=== PATIENT | female | born 1955 | race Caucasian/White ===

== ENCOUNTER → 2017-08-19 08:56 | Outpatient (CLI) | payer MEDICARE, SELFPAY ==
--- NOTE | 2017-08-19 09:00 | RAD_ITS ---
STUDY: X-RAY - LUMBOSACRAL SPINE REASON FOR EXAM: Female, 61 years old. Lower back pain. History of slipped disc. TECHNIQUE: 7 view(s) of the lumbosacral spine were obtained. COMPARISON: MRI of lumbar spine, December 14, 2016. FINDINGS: Normal lumbar lordosis. There is no substantial scoliosis. There is grade 1 anterolisthesis of L4 on L5. This increases with flexion and is stable with extension. The alignment is otherwise preserved. There is diffuse demineralization with multi-level endplate spondylosis. There is multi-level degenerative disc disease with multi-level disc space narrowing. No spine fracture Normal bilateral sacral ala, sacroiliac joints, and visualized sacrum. There is atherosclerotic calcification of the abdominal aorta without a demonstrated aneurysm. There are surgical clips in right upper quadrant suggesting prior cholecystectomy. RAD/L/S Spine Comp/w Bending Views IMPRESSION: Degenerative changes lumbar spine as described above. Electronically Signed: Lei Saavedra DO at 12:45 EDT Tel [phone], Service support ,
--- NOTE | 2017-08-19 09:57 | RAD_ITS ---
STUDY: XR SPINE ENTIRE THORACIC T LUMBAR (W SKULL, CERVICAL AND SACRAL SPINE IF PERFORMED) REASON FOR EXAM: Female, 61 years old. Back pain causing the patient to walk unevenly and hunch over. TECHNIQUE: Radiological exam, spine, entire thoracic and lumbar, including skull, cervical and sacral spine if performed (eg, scoliosis evaluation); 2 or 3 views. COMPARISON: Cervical spine, March 29, 2015. Lumbar spine, August 19, 2017. FINDINGS: There is a 9.5 degree dextroscoliosis of the thoracic spine with the apex of the convexity at the T8 level. There is a 12.8 degree levoscoliosis scoliosis of the lumbar spine with the apex of the convexity at the L4 level. Normal kyphosis of the thoracic spine. There is demineralization of the thoracic spine with endplate spondylosis. There is multilevel disc space narrowing of the thoracic spine. Normal lordosis of the lumbar spine. There is demineralization of the lumbar spine with endplate spondylosis. There is multilevel disc space narrowing of the lumbar spine. The soft tissue structures are unremarkable. RAD/Scoliosis 2 or 3 views IMPRESSION: Scoliosis of the thoracolumbar spine as described above. Electronically Signed: Lei Saavedra DO at 15:39 EDT Tel [phone], Service support ,
== END ==
PROVIDERS: Family Provider Family Medicine; PCP Family Medicine; Visit Provider Orthopaedic Surgery
DX: M54.5 Low back pain (principal); M54.16 Radiculopathy, lumbar region
CPT/HCPCS: 72082; 72114

== ENCOUNTER → 2017-08-27 16:15 | Outpatient (CLI) | payer MEDICARE, SELFPAY ==
[2017-08-27 17:41] LABS: Calcium,Total 9.2 mg/dL (8.5-10.1)
[2017-08-27 17:57] LABS: Vitamin D,25 Hydroxy 44.7 ng/mL (29.95-100.01)
== END ==
PROVIDERS: Family Provider Family Medicine; PCP Family Medicine; Visit Provider Orthopaedic Surgery
DX: M54.12 Radiculopathy, cervical region (principal); M54.16 Radiculopathy, lumbar region; M85.80 Other specified disorders of bone density and structure, unspecified site
CPT/HCPCS: 36415; 82306; 82310

== ENCOUNTER → 2017-09-18 15:43 | Outpatient (CLI) | payer MEDICARE, SELFPAY ==
--- NOTE | 2017-09-18 15:51 | BD_ITS ---
STUDY: DUAL ENERGY X-RAY ABSORPTIOMETRY / DXA REASON FOR EXAM: Female, 61 years old. Bone mineral density screening in a postmenopausal patient. TECHNIQUE: Bone Mineral Density (BMD) measurements of lumbar spine and bilateral hips were obtained. COMPARISON: None. FINDINGS: Lumbar Spine (L1-L4): g/cm2 (0.938) / T-score (-1.9) / Z-score (-0.8) Findings are suggestive of osteopenia with a moderate fracture risk. Left Femur Total: g/cm2 (0.891) / T-score (-0.9) / Z-score (0.0) Left Femoral Neck: g/cm2 (0.934) / T-score (-0.8) / Z-score (0.5) Right Femur Total: g/cm2 (0.851) / T-score (-1.2) / Z-score (-0.3) Right Femoral Neck: g/cm2 (0.957) / T-score (-0.6) / Z-score (0.6) BD/Dexa Bone Density Study IMPRESSION: The patient is considered osteopenic as outlined below according to World [place] Organization (WHO) criteria with a moderate fracture risk. Reference Information: The T-score is the number of standard deviations above or below the standard which is normal for young adults at their peak bone mineral density. The World Health Organization (WHO) interprets the T-scores as follows: Above -1 Normal bone density Between -1 and -2.5 Osteopenia Equal to / or below -2.5 Osteoporosis As a practical clinical guideline, osteopenia may be graded as follows: Mild -1 through -1.5 Moderate -1.6 through -2.0 Severe -2.1 through -2.4 The Z-score is the number of standard deviations above or below age-matched controls. A Z-score of less than -1.5 would be considered abnormal. References: 1. NIH Osteoporosis and Related Bone Diseases http://www.osteo.org 2. International Society for Clinical Densitometry http://www.iscd.org 3. National Osteoporosis Foundation http://www.nof.org Electronically Signed: Virginia Palomino MD at 9:16 EDT , Service support ,
== END ==
PROVIDERS: Family Provider Family Medicine; PCP Family Medicine; Visit Provider Orthopaedic Surgery
DX: M85.80 Other specified disorders of bone density and structure, unspecified site (principal); M54.16 Radiculopathy, lumbar region; M54.12 Radiculopathy, cervical region
CPT/HCPCS: 77080

== ENCOUNTER → 2017-09-30 16:17 | Outpatient (CLI) | payer MEDICARE, SELFPAY ==
--- NOTE | 2017-09-30 16:00 | MRI_ITS ---
STUDY: MRI CERVICAL SPINE WITHOUT CONTRAST REASON FOR EXAM: Female, 61 years old. CHRONIC NECK PAIN, ANY PHYSICAL ACTIVITY IS PAINFUL TECHNIQUE: Standardized fat and water weighted pulse sequences were obtained in the sagittal and axial planes. COMPARISON: X-ray March 29, 2015 FINDINGS: Normal foramen magnum and brainstem-cervical cord junction. Normal craniovertebral junction. Normal anterior atlantoaxial articulation. Normal odontoid process. There is straightening of the normal cervical lordosis. There is no spondylolisthesis. There is multilevel disc desiccation. There is loss of disc height at C5-6 and C6-7. Vertebral body heights are maintained. Bone marrow signal is normal. C2/3: There is mild right uncovertebral hyperostosis. No central canal or neuroforaminal stenosis. C3/4: There is mild right uncovertebral hyperostosis and a mild diffuse bulge. There is mild central canal stenosis and moderate right and [id number] left neuroforaminal stenosis. C4/5: No disc bulge or herniation or central canal or neuroforaminal stenosis. C5/6: There is moderate left and mild right uncovertebral hyperostosis and a diffuse bulge. There is moderate central canal stenosis and severe right and moderate left neuroforaminal stenosis. C6/7: There is mild bilateral uncovertebral hyperostosis and a diffuse bulge. There is mild central canal stenosis and mild right worse than left neuroforaminal stenosis. C7/T1: Normal. Normal cervical cord. Normal visualized soft tissue structures. MRI/Spine Cervical (Routine) IMPRESSION: Multilevel degenerative changes, as described above. C3/4: There is mild right uncovertebral hyperostosis and a mild diffuse bulge. There is mild central canal stenosis and moderate right and [id number] left neuroforaminal stenosis. C5/6: There is moderate left and mild right uncovertebral hyperostosis and a diffuse bulge. There is moderate central canal stenosis and severe right and moderate left neuroforaminal stenosis. C6/7: There is mild bilateral uncovertebral hyperostosis and a diffuse bulge. There is mild central canal stenosis and mild right worse than left neuroforaminal stenosis. Electronically Signed: Zuleyka Horne MD at 12:35 EDT , Service support ,
--- NOTE | 2017-09-30 16:00 | MRI_ITS ---
STUDY: MRI LUMBAR SPINE WITH AND WITHOUT CONTRAST REASON FOR EXAM: Female, 61 years old. TECHNIQUE: Standardized fat and water weighted pulse sequences were obtained in the sagittal and axial planes. 7 ml of Gadavist contrast material was administered for the contrast portion of the examination. COMPARISON: None FINDINGS: T12-L1: Normal endplates. Normal disc height, hydration and morphology. Normal bilateral facet joints. Normal central canal and bilateral lateral recesses. Normal bilateral intervertebral neural foramina. Normal lumbar lordosis. There is no substantial scoliosis. Normal conus medullaris that terminates at the L1 level. L1-2: Normal endplates. Normal disc height, hydration and morphology. Normal bilateral facet joints. Normal central canal and bilateral lateral recesses. Normal bilateral intervertebral neural foramina. L2-3: Normal endplates. Normal disc height, hydration and morphology. Normal bilateral facet joints. Normal central canal and bilateral lateral recesses. Normal bilateral intervertebral neural foramina. L3-4: Endplate spondylosis. Decreased disc height and small circumferential disc bulge. Degenerative changes of the bilateral facet joints. Mild narrowing of the central canal and bilateral intervertebral neural foramina. L4-5: Endplate spondylosis. Decreased disc height and moderate circumferential disc bulge. 5 mm spondylolisthesis Degenerative changes of the bilateral facet joints. Severe narrowing of the central canal and moderate narrowing of the bilateral intervertebral neural foramina. L5-S1: Endplate spondylosis. Decreased disc height and moderate circumferential disc bulge. Degenerative changes of the bilateral facet joints. Moderate narrowing of the central canal and bilateral intervertebral neural foramina. There is right laminectomy. Normal visualized sacral ala. Normal visualized paraspinous soft tissue structures. MRI/Spine Lumbar W/WO Contrast IMPRESSION: Multilevel degenerative changes, as described above. Electronically Signed: Argentina Lucas MD at 7:39 EDT Tel , Service support ,
== END ==
PROVIDERS: Family Provider Family Medicine; PCP Family Medicine; Visit Provider Orthopaedic Surgery
DX: M85.80 Other specified disorders of bone density and structure, unspecified site (principal); M54.12 Radiculopathy, cervical region; M54.16 Radiculopathy, lumbar region
CPT/HCPCS: 72141; 72158; A9585

== ENCOUNTER 2017-11-05 15:30 | Outpatient (RCR) | payer MEDICARE, SELFPAY ==
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
--- NOTE | 2018-02-19 13:15 | HP.PTDCNRP_ITS ---
HP - Discharge Summary (1) - Patient Information RADHA VALLE was seen in my office for initial evaluation on 10/07/17. The following Plan of Care was established for this patient: Initial Frequency: 2x /Week Initial Duration: 2 Months - Anticipated Interventions Patient/Client Instruction: Educate patient on: Condition, Plan of Care, Risk Factors, Benefits of Fitness Program For the Purpose of:: To improve self management Therapeutic Exercise to Include: Strength training, Body mechanics, Postural training, Flexibilty training, Gait and locomotor training, In an aquatic set ting, Active ROM, Dynamic Lumbar Stabilization For the Purpose of:: To decrease pain, To improve muscle performance and motor function, To improve ability to perform ADL's, To increase tolerance to activity/condition/position, To improve ability of physical actions for home/community/work/leisure, To improve gait and locomotor functions This patient was last seen in our office 11/05/17. Pertinent comments regarding their Physical therapy will appear below: This patient has not returned to Physical Therapy and is appropriate to return to MD for further follow-up as needed. At this point I will be discontinuing this patient from physical therapy. I would be happy to see this patient again in the future if found appropriate by the physician. Thank you! Yue Marcial
== END 2017-11-05 19:00 | disposition home or self-care (01) ==
LOC: PT 15:30
PROVIDERS: Family Provider Family Medicine; PCP Family Medicine; Visit Provider Family Medicine
DX: M43.16 Spondylolisthesis, lumbar region (principal)
CPT/HCPCS: 97113; 97162; 97164

== ENCOUNTER → 2018-02-05 13:22 | Outpatient (CLI) | payer MEDICARE, SELFPAY ==
[2018-02-05 15:40] LABS: Absolute Lymphocyte Count 2.59 X10^3/ul (0.83-4.51); Basophil# 0.05 X10^3/uL; Basophil% 0.4 % (0-1); Eosinophil# 0.39 X10^3/uL; Eosinophils% 3.3 % (0-5); Hematocrit 41.7 % (37-47); Hemoglobin 13.3 g/dl (12.0-15.0); Lymphocyte # 2.59 X10^3/ul (4.0); Lymphocyte % 21.9 % (19-41); Mean Corp Hgb Conc 31.9 g/gl (32-36); Mean Corpuscular Hgb 28.7 pg (27.0-32.0); Mean Corpuscular Volume 90.1 fL (81-99); Mean Platelet Vol. 10.8 fl (6.2-12.0); Monocyte# 0.73 X10^3/uL; Monocyte% 6.2 % (0-10); Neutrophil # 8.04 X10^3/uL (2.7-7.7); Platelet Count 285 K/mm3 (150-450); RBC Distribution Width CV 13.5 % (11.6-14.6); Red Blood Count 4.63 M/mm3 (4.2-5.4); White Blood Count 11.8 K/mm3 (4.4-11.0)
[2018-02-05 15:43] LABS: POSITIVE COUNT NO; POSITIVE DIFFERENTIAL NO; POSITIVE MORPHOLOGY NO
[2018-02-05 16:01] LABS: AST(SGOT) 28 U/L (15-37); Alanine Aminotransfer ALT/SGPT 48 U/L (13-56); Albumin, Serum 3.4 g/dL (3.2-5.0); Alkaline Phosphatase 118 U/L (45-117); Anion Gap 6 (5-15); BUN 13 mg/dL (7-18); BUN/Creat Ratio 16.3 RATIO (10-20); Calcium,Total 8.7 mg/dL (8.5-10.1); Chloride 105 mmol/L (98-107); Cholesterol 164 mg/dL (200); EST Glomerular Filtration Rate 78 mL/min (>60); Est Glom Filt Rate - Afr Amer 94 mL/min (>60); Globulin 3.5 g/dL (2.2-4.2); Glucose 126 mg/dL (74-106); High Density Lipoprotein 41 mg/dL; Potassium 3.5 mmol/L (3.5-5.1); Protein, Total 6.9 g/dL (6.4-8.2); Sodium Level 143 mmol/L (136-145); Triglycerides 69 mg/dL; Very Low Density Lipoprotein 14 mg/dL (5-40)
[2018-02-05 16:02] LABS: Microalbumin,Random Urine 9.3 mg/L (NO RANGE EST.); T4 Free Direct 0.86 ng/dL (0.76-1.46); Thyroid Stim Hormone (TSH) 6.52 uIU/mL (0.358-3.74)
[2018-02-05 16:10] LABS: Hemoglobin A1c 6.2 % (4.2-6.3)
== END ==
PROVIDERS: Family Provider Family Medicine; PCP Family Medicine; Visit Provider Family Medicine
DX: E11.9 Type 2 diabetes mellitus without complications (principal); E78.5 Hyperlipidemia, unspecified; E03.9 Hypothyroidism, unspecified; R05 Cough; Z51.81 Encounter for therapeutic drug level monitoring
CPT/HCPCS: 36415; 80053; 80061; 82043; 82570; 83036; 84439; 84443; 85025; 87070; 87077; 87205

== ENCOUNTER 2018-04-06 22:42 | Emergency (ER) | payer MEDICARE, SELFPAY ==
[2018-04-06 22:43] VITALS: RESP 16
[2018-04-06 22:44] VITALS: BP 136/66; PULSE 84; RESP 16; TEMP 36.8; O2SAT 97; BMI 31.6
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
--- NOTE | 2018-04-06 23:17 | ED.DEP ---
ED Disposition - Plan for ED Patient: Chief Complaint: Burn Instructions: ED Burn Wound Check No Infec Referrals: Jimmie Aguirre DO [Primary Care Provider] - Clinic,Wound [None] -
== END 2018-04-06 23:53 | disposition home or self-care (01) ==
LOC: ED 23:15
PROVIDERS: Emergency Provider Emergency Medicine; Family Provider Family Medicine; PCP Family Medicine
DX: T24.012A Burn of unspecified degree of left thigh, initial encounter (principal); T24.011A Burn of unspecified degree of right thigh, initial encounter; T31.0 Burns involving less than 10% of body surface; Z72.0 Tobacco use; X16.XXXA Contact with hot heating appliances, radiators and pipes, initial encounter; Y93.84 Activity, sleeping; Y92.003 Bedroom of unspecified non-institutional (private) residence as the place of occurrence of the external cause; Y99.8 Other external cause status
CPT/HCPCS: 99282

== ENCOUNTER 2018-04-21 15:15 | Outpatient (RCR) | payer MEDICARE, SELFPAY ==
[2018-04-21 16:15] VITALS: BP 140/88; PULSE 88; RESP 18; TEMP 36.7; BMI 31.4
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
--- OUTSIDE RECORDS SUMMARY | 2018-06-17 08:16 | XMS RPT_ITS ---
:1955 Author Organization OHIP Support Name Relationship Address Phone D Unavailable Unavailable Unavailable MATYOUSIAN, BEATRIS Unavailable Unavailable + [place] [address] D Unavailable Unavailable Unavailable MATYOUSIAN, BEATRIS Unavailable Unavailable + [place] [address] D Unavailable Unavailable Unavailable MATYOUSIAN, BEATRIS Unavailable Unavailable + [place] [address] D Unavailable Unavailable Unavailable MATYOUSIAN, BEATRIS Unavailable Unavailable + [place] [address] D Unavailable Unavailable Unavailable MATYOUSIAN, BEATRIS Unavailable Unavailable + [place] [address] D Unavailable Unavailable Unavailable MATYOUSIAN, BEATRIS Unavailable Unavailable + [place] [address] IDRIS BAZAN Unavailable Unavailable + D Unavailable Unavailable Unavailable MATYOUSIAN, BEATRIS Unavailable Unavailable + [place] [address] D Unavailable Unavailable Unavailable MATYOUSIAN, BEATRIS Unavailable Unavailable + [place] [address] D Unavailable Unavailable Unavailable MATYOUSIAN, BEATRIS Unavailable Unavailable + [place] [address] D Unavailable Unavailable Unavailable MATYOUSIAN, BEATRIS Unavailable Unavailable + [place] [address] D Unavailable Unavailable Unavailable MATYOUSIAN, BEATRIS Unavailable Unavailable + [place] [address] IDRIS BAZAN Unavailable Unavailable + IDRIS BAZAN Unavailable Unavailable + D Unavailable Unavailable Unavailable HORTENSIAIDRIS Unavailable [address] + [place] [address] D Unavailable Unavailable Unavailable IDRIS BAZAN Unavailable [address] + [place] [address] TAHIR RIDDLE Unavailable Unavailable + TAHIR RIDDLE Unavailable Unavailable + D Unavailable Unavailable Unavailable IDRIS BAZAN Unavailable [address] [place] [address] Care Team Providers Name Role Phone YESI COWAN Referring Unavailable Timothy, Jimmie Primary Care Unavailable YESI COWAN Attending Unavailable Bob, Gerda Attending Unavailable Timothy, Jimmie Referring Unavailable Timothy, Jimmie Primary Care Unavailable Bob, Gerda Attending Unavailable Timothy, Jimmie Primary Care Unavailable Bob, Gerda Attending Unavailable Bob, Gerda Referring Unavailable Timothy, Jimmie Primary Care Unavailable STEFFEN RIVERA Attending Unavailable Timothy, Jimmie Primary Care Unavailable Bob, Gerda Attending Unavailable Timothy, Jimmie Primary Care Unavailable Bob, Gerda Attending Unavailable Timothy, Jimmie Primary Care Unavailable Bob, Gerda Referring Unavailable Timothy, Jimmie Primary Care Unavailable Timothy, Jimmie Attending Unavailable Timothy, Jimmie Referring Unavailable Timothy, Jimmie Attending Unavailable Timothy, Jimmie Primary Care Unavailable Timothy, Jimmie Attending Unavailable Timothy, Jimmie Primary Care Unavailable Timothy, Jimmie Primary Care Unavailable Adriano Razo Attending Unavailable BarbaraSoheila Attending Unavailable Timothy, Jimmie Primary Care Unavailable Barbara Soheila E Attending Unavailable Timothy, Jimmie Primary Care Unavailable Barbara, Soheila E Consulting Unavailable Timothy, Jimmie Primary Care Unavailable Vianey Neely Attending Unavailable BOB, GERDA Attending Unavailable BOB, GERDA Referring Unavailable BOB, GERDA Attending Unavailable BOB, GERDA Referring Unavailable BOB, GERDA Admitting Unavailable BOB, GERDA Attending Unavailable Alma Saul Attending Unavailable Alma Saul Attending Unavailable MISCELLANEOUS DOCTOR Primary Care Unavailable Alma Saul Attending Unavailable Alma Saul Attending Unavailable PROBLEMS PROBLEMS DATE TYPE CONDITION / CODE ATTENDING STATUS SOURCE 02/05/2018 Unknown E11.9 - Type 2 Timothy, Jimmie Active [place] diabetes mellitus Community without Hospital complications / Repository E11.9(ICD-10) 12/08/2017 Admitting Spinal stenosis, GERDA BOB Active [place] diagnosis lumbar region [facility] without neurogenic [facility] claudication / Center M48.061(ICD-10) Repository 02/19/2018 Unknown M43.16 - Jimmie Aguirre Active [facility] Spondylolisthesis, Community lumbar region / Hospital M43.16(ICD-10) Repository 09/26/2017 Unknown M54.16 - Gerda Bob Active [place] Radiculopathy, Community lumbar region / Hospital M54.16(ICD-10) Repository 09/26/2017 Unknown M85.80 - Other Gerda Bob Active [facility] specified disorders Community of bone density and Hospital structure, Repository unspecified site / M85.80(ICD-10) 09/26/2017 Unknown M54.12 - Gerda Bob Active [place] Radiculopathy, Community cervical region / Hospital M54.12(ICD-10) Repository 08/19/2017 Unknown M54.5 - Low back Gerda Bob Active [place] pain / Community M54.5(ICD-10) Hospital Repository 06/17/2017 Admitting Unknown / [facility] [place] Repository PROCEDURES PROCEDURES No Procedure Records FoundRESULTS RESULTS Observed: 05/01/2018 Status: F Source: [place] CULTURE, DEEP WOUND 4:30 PM [facility] REPOSITORY FAX AND CALL RESULTS TO [facility] Gram Stain Gram Stain No White Blood Cells No organisms seen Wound Culture No growth aerobically. Cult, Anaerobic No growth in 5 days. Performed By: #### M100.1500 #### [facility] [place], [address] PROGRESS Observed: 04/29/2018 Status: COMPLETED Source: [place] 9:56 AM [facility] REPOSITORY O ID: [id number] Author: Marilu Roldan (Pa) Service: (none) Author Type: Physician Cherry Picker Operator Type: Progress Notes Filed: 04/29/2018 10:10 AM Note Text: Patient with complaints of scoliosis, bad muscle spasms in spine and leaning forward when walking. Had prior surgery in 08/[address] Lo - Right L5-S1 hemilaminotomies and right sided L5-S1 discectomy MRI cervical spine report 09/2017: Multilevel spondylosis with moderate right and mild to moderate bilateral foraminal stenosis at C3-4. Moderate canal stenosis at C5- 6, and severe left and moderate right foraminal stenosis. Scoliosis xrays report 07/2017: 9.5 degrees dextroscoliosis of the thoracic spine with the apex of convexity at T8 level. 12.8 degrees levoscoliosis of the lumbar spine with the apex of the convexity at L4. Multilevel spondylosis in thoracic and lumbar spine. MRI lumbar spine report 09/2017: L3-4 spondylosis with mild narrowing of central and foraminal canals L4-5 spondylosis with 5 mm spondylolisthesis with severe central canal stenosis and moderate bilateral foraminal stenosis L5-S1 moderate central canal stenosis Looks like patient had surgery scheduled with Dr Bob- but had to post-pone it due to her mother being very sick. Seeking another opinion. Please schedule with Dr Call as requested for second opinion. Please make sure patient brings CD with all her imaging for review. Marilu Roldan PA-C WOUND CTR HISTORY Observed: 04/23/2018 Status: F Source: [place] AND PHYSICAL 8:48 AM [facility] REPOSITORY [facility] [address] [place] [address] Wound Ctr History AND Physical 04/22/18 1613 MR#: [id number] Acct: [id number] Name: DONNA DE LEON Rep #: [id number] : 1955 62 From: Soheila GRAVES PCP: Jimmie Aguirre DO Status: REG RCR Y Location: WC (1) Decubitus ulcer of left hip Status: Acute Current Visit: Yes Code(s): L89.229 - Pressure ulcer of left hip, unspecified stage (2) Decubitus ulcer of right hip Status: Acute Current Visit: Yes Code(s): L89.219 - Pressure ulcer of right hip, unspecified stage (3) Burn of skin Status: Acute Current Visit: Yes Code(s): T30.0 - Burn of unspecified body region, unspecified degree History of Present Illness Chief Complaint: Skin clement to bilateral hips caused by falling asleep on heating pad. History of Wound: Patient fell asleep March 16, 2018 on a heating pad and developed clement on bilateral hips. She went to the ER 04/06/18 due to the pain and the worsening appearance of the sores. She had been using neosporin and some other cream a friend had given her on them. Today they have dry eschar present on bilateral ulcers. Past Medical History Allergies/Adverse Reactions: Allergies atenolol Allergy (Mild, Verified 04/06/18 22:56) unknown metformin Allergy (Mild, Verified 04/06/18 22:56) nausea, gas, bloating NSAIDS (Non-Steroidal Anti-Inflamma Allergy (Mild, Verified 04/06/18 22:56) eye swelling ibuprofen Allergy (Verified 04/06/18 22:56) Swelling iodine Allergy (Verified 04/06/18 22:56) Anaphylaxis Home Medications: Ambulatory Orders Medication Instructions Recorded albuterol sulfate HFA 90 2 puff INHALATION Q6H 08/06/17 mcg/actuation aerosol inhaler alprazolam 0.5 mg tablet 0.5 mg PO ONCE 08/06/17 amlodipine 10 mg tablet 10 mg PO QDAY 08/06/17 Smoking Status: Heavy Smoker (>10/day) Review of Systems Constitutional: Denies: Anorexia, Chills, Fever Eyes: Denies: Blurred vision, Cataracts HEENT: Denies: Difficulty Hearing, Difficulty Swallowing, Sinus Congestion Cardiovascular: Denies: Chest Pain, Edema Respiratory: Denies: Cough, Shortness of Breath Musculoskeletal: Reports: Back Pain - Chronic back and neck pain, Neck Pain - Chronic neck and back pain Skin: Reports: Wounds - Bilateral hip sores Neurological: Denies: Balance problems, Change in Speech Psychiatric: Reports: Anxiety - Physical Exam Vital Signs Temp Pulse Resp BP 98.0 F 88 18 140/88 H 04/21/18 16:15 04/21/18 16:15 04/21/18 16:15 04/21/18 16:15 General: Alert, Oriented x3, Cooperative HEENT: Atraumatic, PERRLA Oral: Moist Mucosa Lungs: Clear to auscultation, Normal air movement Cardiovascular: Regular rate, Regular Rhythm Abdomen: Bowel Sounds Present, Soft Extremities: No edema, Capillary Refill Less than 3 Seconds Skin: Ulcer/ Wound - bilateral hip ulcers with dried black scabbing in place Wound Measurements and Assessment - Nurse 1 - General Ulcer Measurement Start: 04/21/18 15:58 Freq: Status: Active Protocol: Activity Type Activity Date Activity User E-Sign Co-Sign Detail Recorded Client Recorded Date Recorded By Document 04/21/18 16:25 TERRANCE [id number] 04/21/18 16:35 [facility] Wound Center Nurse 1 [Ulcer Assessment] #2 LEFT LOWER GLUTE -Combined with other wound No -Current Size (cm) - Length 3.0 -Current Size (cm) - Width 2.0 - Nurse 2 - General Ulcer CM Notes Start: 04/21/18 15:58 Freq: Status: Active Protocol: Activity Type Activity Date Activity User E-Sign Co-Sign Detail Recorded Client Recorded Date Recorded By Document 04/21/18 16:44 [facility] [id number] 04/21/18 16:57 [facility] Wound Center Nurse 2 [Procedure/Treatment] Musculoskeletal: No Tenderness to Palpation of Joints or Extremities Neurological: Neuro grossly intact Psych/Mental Status: Normal Affect, Appropriate Debridement Note Post-Debridement Measurements/Treatment - Nurse 2 - General Ulcer CM Notes Start: 04/21/18 15:58 Freq: Status: Active Protocol: Activity Type Activity Date Activity User E-Sign Co-Sign Detail Recorded Client Recorded Date Recorded By Document 04/21/18 16:44 U[facility] [id number] 04/21/18 16:57 Wound Center Nurse 2 #2 LEFT LOWER GLUTE -Time 16:55 -Correct Patient Yes -Correct Side, Site, Position Yes Wound debrided: Left hip Laterality: Left Type of Debridement: Excisional debridement Anesthesia Used: 4% Lidocaine Solution Depth: Down to and including healthy tissue, in the subcutaneous layer Percentage of wound debrided: 100 Instrument Used: 3mm curette Tissue Removed: Subcutaneous tissue and slough Severity: Limited To Skin Breakdown Amount of bleeding with debridement: None Bleeding Controlled with: Pressure Patient tolerated procedure well - Additional Wound Wound debrided: Right hip Laterality: Right Type of Debridement: Excisional debridement Anesthesia Used: 4% Lidocaine Solution Depth: Down to and including healthy tissue, in the subcutaneous layer Percentage of wound debrided: 100 Instrument Used: 3mm curette Tissue Removed: Subcutaneous tissue and slough Severity: Limited To Skin Breakdown Amount of bleeding with debridement: None Bleeding Controlled with: Pressure Patient tolerated procedure: Patient tolerated procedure well Assessment/Plan Active Problems (Last Reviewed 08/06/17 @ 11:38 by Ysabel Noonan) Decubitus ulcer of left hip (Acute) Decubitus ulcer of right hip (Acute) Burn of skin (Acute) Assessment: 1. Decubitus ulcer of left hip (Acute). 2. Decubitus ulcer of right hip (Acute). 3. Burn of skin (Acute) Plan: The patient was seen and examined at the wound center today and was updated on the plan of care. A subcutaneous debridement was performed today. The patient tolerated the procedure well. The patient's wound care will consist of Santyl nickel thickness bilateral hip wounds. Instructed to wash wounds with soap and water daily and shower. Patient educated on the importance of diet and a wound healing and instructed to increase protein intake. Patient will follow up the wound center in 1 week. Code Visit Office Visits / Consults: [id number] OV L3 New 111xxx-113xx: [id number] Anita subq tissue 20 sq cm/< - 25 modifier 04/23/18 0848 <Electronically signed by Soheila GRAVES> Date Soheila GRAVES CC: Signed PROGRESS Observed: 04/15/2018 Status: COMPLETED Source: [place] 1:35 PM [facility] REPOSITORY HNO ID: [id number] Author: Kari Lopez Service: (none) Author Type: (none) Type: Progress Notes Filed: 04/29/2018 10:10 AM Note Text: Patient name: Donna Ghotra Are you being referred by a [facility] for [facility] Provider or Pain Management Provider at [facility]? No If no, who is the Referring Provider: Self MRI/CT/myelogram within 12 months: Yes Imaging viewable in Epic: No If no, please instruct pt to provide most recent spine imaging in on CD with report for review during triage Requested provider: Dr. Call 1. Are you having pain in any of the following areas related to this visit? Neck Back Thigh Calf 2. Are you having any of the following symptoms: having difficulty walking, numbness, weakness or trouble using your hands? Yes difficulty walking, numbness, weakness 3. Have you completed the following treatment in the past 12 months for this problem? Conservative Therapy: NSAIDS, Muscle relaxants, Physical therapy, Oral steroids, Trigger point injection and Epidural blocks 4. Are you currently taking daily prescribed narcotic medications for your current symptoms? Yes 5. Have you had previous spinal surgery for this same problem? No Additional Comments: Patient will fax imaging report [phone] EMERGENCY DEPARTMENT Observed: 04/06/2018 Status: F Source: [place] SUMMARY 11:17 PM [facility] REPOSITORY [facility] Medical Records Department [address] [place] [address] Emergency Department Summary 04/06/18 2314 MR#: [id number] Acct: [id number] Name: DONNA DE LEON Rep #: [id number] : 1955 62 From: Adriano Razo MD PCP: Jimmie Aguirre DO Status: REG ER - ER Visit Summary Date of Service: 04/06/18 Chief Complaint: Clement to bilateral hips History of Present Illness: The patient is a 62 F who presents with bilateral hip clement. She actually sustained these 3-4 weeks ago. She states that she sleeps on a heating pad. She does take sedating medications. She fell asleep on a heating pad which she states she is actually often does. However she believes her heating pad malfunction because she developed clement. She was has been trying to manage these at home but now complains of some increased pain and nausea. No vomiting. No fevers. Her pain is worse with movement. At rest while just sitting in the bed she has no pain. Physical Examination: Afebrile vitals unremarkable Heart regular rate and rhythm Lungs clear Abdomen soft Patient has partial-thickness clement over the bilateral hips/lateral thigh, each burn is estimated 1% body surface area. There is some overlying eschar. I do not appreciate surrounding erythema consistent with cellulitis there is no lymphangitic streaking there are nontender to palpation there is no crepitus Test Results: Not indicated Emergency Department Course and Treatment: Patient appears to have well-healing clement. I do not see evidence of secondary infection at this time. She was advised to continue supportive care. We will also refer to wound care. She does understand return for new or worsening symptoms. She was discharged. Treatment Plan: [] Disposition: Discharge Impression: Bilateral partial thickness hip/thigh clement, 2% total estimated body surface area This note was generated with Meeps dictation software. It may contain incorrect words, spelling, and punctuation that were not noted in review of the chart prior to signing ED Disposition - Plan for ED Patient: Chief Complaint: Burn Referrals: Jimmie Aguirre DO [Primary Care Provider] - What to do if you have Problems For any increased pain, shortness of breath, bleeding, nausea or vomiting, chest pain, or any unexpected problems, contact your Primary Care Provider. Call [facility] ([phone]) or report to the closest Emergency Room. Call 911 if necessary. 04/06/182316 <Electronically signed by Adriano Razo MD> Date Adriano Razo MD Cosigner Signature (If Indicated): Date CC: Jimmie Aguirre DO DISCHARGE INSTRUCTION Observed: 04/06/2018 Status: F Source: [place] 11:17 PM [facility] REPOSITORY [facility] Medical Records Department [address] [place] [address] Discharge Instruction 04/06/182316 MR#: [id number] Acct: [id number] Name: DONNA DE LEON Rep #: [id number] : 1955 62 From: Adriano Razo MD PCP: Jimmie Aguirre DO Status: REG ER ED Disposition - Plan for ED Patient: Chief Complaint: Burn Instructions: ED Burn Wound Check No Infec Referrals: Jimmie Aguirre DO [Primary Care Provider] - Clinic,Wound [None] - What to do if you have Problems For any increased pain, shortness of breath, bleeding, nausea or vomiting, chest pain, or any unexpected problems, contact your Primary Care Provider. Call [facility] ([phone]) or report to the closest Emergency Room. Call 911 if necessary. 04/06/18 2317 <Electronically signed by Adriano Razo MD> Date Adriano Razo MD Cosigner Signature (If Indicated): Date CC: Jimmie SierraTimothy DO Observed: 02/05/2018 Status: F Source: [place] CULTURE, SPUTUM 1:27 PM [facility] REPOSITORY Gram Stain Acceptable Specimen? Yes (<25 Epithelial cells per/lpf) Gram Stain 4+ Gram positive cocci 1+ Gram positive rods 1+ White Blood Cells No Epithelial cells Resp. Culture #1 Ampicillin can be used for Beta-Lactamase negative isolates. Trimeth/Sulfa, Chloramphenicol, Cefotaxime, Ciprofloxacin, Amoxicillin/Clavulanic Acid,and Oral 2nd/3rd Generation Cephlosporins are effective against both Beta-Lactamase positive and Beta-Lactamase negative isolates. ORGANISM 1: Haemophilus influenzae Amount Growth 3+ Beta Lactamase Positive ORGANISM 2: Presumptive C albicans Amount Growth 1+ ORGANISM 3: Mixed Charisse Amount Growth 3+ Performed By: #### M100.0800 #### [facility] [address] [place] [address]. [place], [address] CBC W/DIFF, AUTOMATED Collected: 02/05/2018 Status: F Source: [place] 1:25 PM [facility] REPOSITORY TYPE CODE TESTS RESULT OUT OF RANGE REFERENCE UNITS LAB L100.1000 4.4-11.0 K/mm3 High WBC 11.8 LAB L100.1200 4.2-5.4 M/mm3 Normal RBC 4.63 LAB L100.1300 12.0-15.0 g/dl Normal HGB 13.3 LAB L100.1400 37-47 % Normal HCT 41.7 LAB L100.1500 81-99 fL Normal MCV 90.1 LAB L100.1600 27.0-32.0 pg Normal MCH 28.7 LAB L100.1700 32-36 g/gl Low MCHC 31.9 LAB L100.1810 11.6-14.6 % Normal RDW CV 13.5 LAB L100.1820 35.1-43.9 fl High RDW SD 44.0 LAB L100.1900 150-450 K/mm3 Normal PLT 285 LAB L100.2000 6.2-12.0 fl Normal MPV 10.8 LAB L100.2100 47-70 % Normal NEUT% 68.0 LAB L100.2200 19-41 % Normal LY% 21.9 LAB L100.2300 0-10 % Normal MONO% 6.2 LAB L100.2400 0-5 % Normal EO% 3.3 LAB L100.2500 0-1 % Normal BASO% 0.4 LAB L100.2550 0.0-0.9 % Normal IM GRAN % 0.200 Result Comment: IG% - Immature Granulocytes (promyelocytes, myelocytes and metamyelocytes) > 1% indicates that a LEFT SHIFT is Present. LAB L100.2620 2.0-7.7 X10 3/uL High Absolute Neut 8.0 LAB L100.2720 0.83-4.51 X10 3/ul Normal Absolute Lymph 2.59 Performed By: #### L100.0100 #### [facility] [address] [place], [place], [address] COMPREHENSIVE METABOLIC Collected: 02/05/2018 Status: F Source: [facility] 1:25 PM [facility] REPOSITORY TYPE CODE TESTS RESULT OUT OF RANGE REFERENCE UNITS LAB L501.0100 74-106 mg/dL High GLU 126 Result Comment: Fasting Glucose result greater than or equal to 126 mg/dL suggests DIABETES MELLITUS per A.D.A. criteria. Please note revised GLUCOSE reference range effective 2017. LAB L501.1000 7-18 mg/dL Normal BUN 13 LAB L501.1100 0.55-1.02 mg/dL Normal CREAT,SERUM 0.80 Result Comment: The validity of the calculated GFR AND GFRAA in patients over 70 years has not been determined. Clinical correlation is essential. LAB L501.1110 >60 mL/min Normal EST GFR 78 Result Comment: Non- GFR Calc LAB L501.1115 >60 mL/min Normal EST GFR - AA 94 Result Comment: GFR Calc LAB L501.1300 10-20 RATIO Normal BUN/CRE 16.3 LAB L501.1500 6.4-8.2 g/dL T Normal PROT 6.9 LAB L501.1800 3.2-5.0 g/dL Normal ALB 3.4 LAB L501.1950 2.2-4.2 g/dL Normal GLOB 3.5 LAB L501.2000 0.9-2.4 RATIO Normal A/G 1.0 LAB L501.2200 8.5-10.1 mg/dL CA Normal 8.7 LAB L501.4100 15-37 U/L Normal AST 28 LAB L501.4305 45-117 U/L High ALK P 118 LAB L501.4405 13-56 U/L Normal ALT 48 LAB L501.4600 0.20-1.00 mg/dL T Normal BILI 0.30 LAB L501.5300 136-145 mmol/L NA Normal 143 LAB L501.5600 3.5-5.1 mmol/L K Normal 3.5 LAB L501.5900 98-107 mmol/L CL Normal 105 LAB L501.6100 21.0-32.0 mmol/L Normal CO2 32.0 LAB L501.6200 5-15 Normal GAP 6 Performed By: #### L500.4050, L500.4100, L501.9520, L506.0400 #### [facility] [address] [place], [place], [address] LIPID PROFILE Collected: 02/05/2018 Status: F Source: [place] 1:25 PM [facility] REPOSITORY TYPE CODE TESTS RESULT OUT OF RANGE REFERENCE UNITS LAB L501.4900 200 mg/dL Normal CHOL 164 Result Comment: <200 mg/dL Desirable 200-240 mg/dL Borderline >240 mg/dL High Risk LAB L501.5000 mg/dL Normal TRIG 69 Result Comment: The drugs N-Acetylcysteine and Metamizole may falsely depress this assay. Serum Triglycerides Reference Interval Normal <150 mg/dL Borderline high 150 - 199 mg/dL High 200 - 499 mg/dL Very High > or = 500 mg/dL LAB L501.6400 mg/dL Normal HDL 41 Result Comment: The drugs N-Acetylcysteine and Metamizole may falsely depress this assay. Reference Range HDL <40 mg/dL Low HDL Cholesterol HDL >or= 60 mg/dL High HDL Cholesterol LAB L501.6500 0-130 mg/dL Normal LDL 109 LAB L501.6600 5-40 mg/dL Normal VLDL 14 Performed By: #### L500.4050, L500.4100, L501.9520, L506.0400 #### [facility] [address] [place], [address] THYROID STIM HORMONE Collected: 02/05/2018 Status: F Source: [place] ([facility]) 1:25 PM [facility] REPOSITORY TYPE CODE TESTS RESULT OUT OF RANGE REFERENCE UNITS LAB L501.9520 0.358-3.74 uIU/mL High TSH 6.52 Performed By: #### L500.4050, L500.4100, L501.9520, L506.0400 #### [facility] [address] [place], [place], [address] T4 FREE DIRECT Collected: 02/05/2018 Status: F Source: [place] 1:25 PM [facility] REPOSITORY TYPE CODE TESTS RESULT OUT OF RANGE REFERENCE UNITS LAB L506.0400 0.76-1.46 ng/dL Normal T4 FREE 0.86 DIRECT Performed By: #### L500.4050, L500.4100, L501.9520, L506.0400 #### [facility] [address] [place], [place], [address] MICROALB:CREAT Collected: 02/05/2018 Status: F Source: [place] RATIO,RANDOM UR 1:25 PM [facility] REPOSITORY TYPE CODE TESTS RESULT OUT OF RANGE REFERENCE UNITS LAB L501.1200 NO RANGE EST. mg/dL Normal UR CREAT 188.00 LAB L502.0500 NO RANGE EST. mg/L Normal 9.3 MICROALBUMIN ,UR LAB L502.0600 <30 mg/g CRE mg/g CRE Normal 5.0 MALB:CREAT Performed By: #### L502.0250 #### [facility] [address] [place], [address] HEMOGLOBIN A1C Collected: 02/05/2018 Status: F Source: [place] 1:25 PM [facility] REPOSITORY TYPE CODE TESTS RESULT OUT OF RANGE REFERENCE UNITS LAB L501.9985 4.2-6.3 % Normal HGB A1C 6.2 Performed By: #### L501.9985 #### [facility] [address] [place], [address] INITAL EVALUATION (1) Observed: 10/07/2017 Status: F Source: [place] - PT 2:00 PM [facility] REPOSITORY [facility] [address] [place], [place] [address] Fax REHABILITATION SERVICES INITIAL EVALUATION MR#: [id number] Acct: [id number] Name: DONNA DE LEON Rep #: [id number] : 1955 61 From: Yue Marcial PT, Cert. MDT Referring Dr.: Gerda Bob MD Status: REG RCR Insurance: [employer] MEDICARE O SELF PAY INSURANCE Patient's Visit Information DONNA GHOTRA is a 61 year old F referred to Physical Therapy by Gerda Bob with a diagnosis of Spinal stenosis, lumbar region with neurogenic claudication.. Date of Evaluation: 10/07/17 Physical Therapist: Yue Marcial - Visit Plan Frequency: 2x /Week Duration: 2 Months Plan: AQUATIC THERAPY FOR PAIN RELEIF, POSTURE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 Officer: Signed L/S SPINE COMP/W Observed: 08/19/2017 Status: F Source: [facility] 8:58 AM [facility] REPOSITORY [facility] Imaging Services [address] [place] [address] L/S Spine Comp/w Bending Views MR#: [id number] Acct: [id number] Name: DONNA DE LEON Rep #: [id number] : 1955 F 61 From: Lei Saavedra DO PCP: Jimmie Aguirre DO Status: REG CLI Study: L/S Spine Comp/w Bending Views Date of Exam: 08/19/17 Exam# [id number] Ordering Dr: Gerda Bob MD STUDY: X-RAY - LUMBOSACRAL SPINE REASON FOR EXAM: Female, 61 years old. Lower back pain. History of slipped disc. TECHNIQUE: 7 view(s) of the lumbosacral spine were obtained. COMPARISON: MRI of lumbar spine, December 14, 2016. FINDINGS: Normal lumbar lordosis. There is no substantial scoliosis. There is grade 1 anterolisthesis of L4 on L5. This increases with flexion and is stable with extension. The alignment is otherwise preserved. There is diffuse demineralization with multi-level endplate spondylosis. There is multi-level degenerative disc disease with multi- level disc space narrowing. No spine fracture Normal bilateral sacral ala, sacroiliac joints, and visualized sacrum. There is atherosclerotic calcification of the abdominal aorta without a demonstrated aneurysm. There are surgical clips in right upper quadrant suggesting prior cholecystectomy. RAD/L/S Spine Comp/w Bending Views IMPRESSION: Degenerative changes lumbar spine as described above. Electronically Signed: Lei Saavedra DO at 12:45 EDT Tel [phone], Service support , CC: Gerda Bob MD; Jimmie Aguirre DO Corporate Banking Officer: Signed MRSA PCR Collected: 06/02/2017 Status: F Source: [facility] 9:30 AM [facility] REPOSITORY Order Comment: [place]: TYPE CODE TESTS RESULT OUT OF RANGE REFERENCE UNITS LAB L770.07748 NEGATIVE Normal MRSA NEGATIVE PCR Result Comment: PLEASE NOTE: TESTING DONE BY PCR TECHNOLOGY. The SA Nasal complete MRSA assay on the CepFanli websiteid GeneXpert has not been validated for use on patients under 21 years of age. All patients under 21 years of age, run on the GeneXpert will be confirmed by a Blood [place] plate, followed by an [place], to confirm MRSA. LAB L770.32981 NEGATIVE Normal NEGATIVE SA PCR Result Comment: PLEASE NOTE: TESTING DONE BY PCR TECHNOLOGY. Performed By: #### L770.47002 #### [facility] LABORATORY [facility] [address]# [phone] DOSETRACK Observed: 06/02/2017 Status: UNK Source: [facility] 8:30 AM [facility] REPOSITORY Test Dose report. Name: CARMITA GACRIA Accession Number: [id number] Dose Type: CT Exam: LSP-C Max CTDIVol: 51.14 mGy DLP: 1335.94 mGy*cm CT 3 CT LUMBAR SP WO CON [id number] [id number] [id number] [id number] 35.7534995784 647953 Lumbar spine 358.4500 358.4500 1 [id number] [id number] 140.3523111386 971828 Lumbar spine 358.4500 358.4500 1 [id number] 7600.1339480724 [id number] P5-26510 Lumbar spine [id number] 1335.9522303937 40.0000 0.5200 261.2200 600.0000 845384 1 20.62 [facility] PATIENT NAME: [address] Robles MEDICAL REC #: [id number] [place] [address] ADMIT DATE: DISCHARGE DATE: DOSETRA ATTENDING PHY: Alma Saul DO [facility] PATIENT NAME: [address] Robles MEDICAL REC #: [id number] [place] [address] ADMIT DATE: DISCHARGE DATE: DOSETRACK ATTENDING PHY: Alma Saul DO CT LUMBAR SP WO CON Observed: 06/02/2017 Status: F Source: [facility] 6:57 AM [facility] CT LUMBAR SP WO CON Ordering Physician: Alma Saul DO 06/02/2017 6:[address] LUMBAR SPINE WITH SAGITTAL CORONAL RECONSTRUCTIONS: Clinical Statement: Spinal stenosis lumbar intervertebral disk Comparison: MRI lumbar spine 12/14/2016. TECHNIQUE: 2.5 mm transaxial images were obtained through the lumbar spine. Sagittal coronal reconstructions were processed. FINDINGS: No compression fractures. There is 6 mm of anterolisthesis of L4 and L5 posterior elements are intact. There is no paraspinal soft tissue swelling or mass. The retroperitoneal structures are within normal limits. The sacrum and visualized portions of the pelvis are within normal limits. At T12-L1, there is no spinal stenosis or neural foraminal narrowing. At L1-L2, there is a slight disk bulge. There is no spinal stenosis or appreciable neural foraminal narrowing. At L2-L3, there is no spinal stenosis or neural foraminal narrowing. At L3-L4, there is a disk bulge that is eccentric to the left. The thecal sac is indented anteriorly. Ligamentum flavum hypertrophy and facet arthropathy are noted. There is severe spinal stenosis with the thecal sac measuring approximately 5 mm in AP dimension. There is bilateral neural foraminal narrowing left greater than right. At L4-L5, disk bulge with vacuum phenomena. The bulge is eccentric to the left. Ligamentum flavum hypertrophy and facet arthropathy are noted. There is severe spinal stenosis with the thecal sac compressed to approximately 4 mm in AP dimension centrally. There is bilateral neural foraminal narrowing left greater than right. At L5-S1, severe degenerative disk disease with endplate osteophytes intact. A disk bulge is noted. The thecal sac has a triangular configuration. There is moderate to severe spinal stenosis with bilateral neural foraminal narrowing right greater than left. Severe facet arthropathy is noted IMPRESSION: Severe spinal stenosis at L3-L4 and L4-L5 with moderate to severe spinal stenosis at L5-S1. Multilevel facet arthropathy that is severe C3-C4 C4-C5 and C5-C6. Multilevel neural foraminal narrowing that is most severe at L5-S1 right greater than left ---- Electronic Signature on File ---- Signed By: Duane Hemphill MD [email or web address] Dictated: 06/03/2017 10:05 AM Signed: 06/03/2017 10:28 AM Reported By: DUANE HEMPHILL M.D. Signed By: DUANE HEMPHILL M.D. [facility] Collected: 05/27/2017 Status: F Source: [facility] 11:10 AM [facility] REPOSITORY Order Comment: [place]: M TYPE CODE TESTS RESULT OUT OF RANGE REFERENCE UNITS LAB L500.21970 136-145 MMOL/L Normal NA 140 LAB L500.29583 3.5-5.1 MMOL/L Normal K 4.1 LAB L500.66466 98-107 MMOL/L Normal CL 102 LAB L500.82304 21-32 MMOL/L Normal CO2 31 LAB L500.21077 5-16 MMOL/L Normal AGAP 6 LAB L500.23500 70-100 MG/DL High GLU 111 Result Comment: 70-100- Normal Fasting; 100-125 Impaired Fasting; greater than 126 on more than one result- Diabetes. ADA guidelines. Results may be falsely elevated after the administration of Sulfapyridine. Results may be falsely depressed after the administration of Sulfasalazine. LAB L500.67169 7-26 MG/DL Normal BUN 9 LAB L500.98119 0.510-0.950 MG/DL Normal CREAT 0.691 Result Comment: Patients receiving either N-Acetylcysteine (NAC) or Metamizole prior to venipuncture, may have falsely depressed results. LAB L500.39770 15-24 Low BUN/CREA 13 LAB L500.90229 8.5-10.1 MG/DL Normal CALCIUM TOTAL 8.9 Performed By: #### L500.61546, L500.42035, L500.63648 #### [facility] LABORATORY [address] [place] [address] GFR EST Collected: 05/27/2017 Status: F Source: [facility] 11:10 AM [facility] REPOSITORY Order Comment: [place]: M TYPE CODE TESTS RESULT OUT OF RANGE REFERENCE UNITS LAB L500.10750 ML/MIN Normal IF non-AFR Greater than AMER 60 LAB L500.83917 ML/MIN Normal IF Greater than AMER 60 Performed By: #### L500.86340, L500.52763, L500.30734 #### [facility] LABORATORY [address] [place] [address] PBNP TEST Collected: 05/27/2017 Status: F Source: [facility] 11:10 AM [facility] REPOSITORY Order Comment: [place]: M TYPE CODE TESTS RESULT OUT OF RANGE REFERENCE UNITS LAB L500.79026 0-900 PG/ML Normal PBNP TEST 33 Result Comment: NT-proBNP results of less than 300 pg/ml effectively rules out acute congestive heart failure with 99% negative predictive value. Performed By: #### L500.96635, L500.98206, L500.68456 #### [facility] LABORATORY [address]# [phone] CBC W/DIFF Collected: 05/27/2017 Status: F Source: [facility] 11:10 AM [facility] REPOSITORY Order Comment: [place]: M TYPE CODE TESTS RESULT OUT OF RANGE REFERENCE UNITS LAB L200.96840 4.5-11.0 K/CU MM WBC Normal 8.9 LAB L200.58056 3.90-5.30 M/CU MM RBC Normal 4.55 LAB L200.75036 11.5-15.5 G/DL HGB Normal 13.1 LAB L200.72084 35.0-47.0 % HCT Normal 40.4 LAB L200.85095 80.0-99.0 fl MCV Normal 88.8 LAB L200.82348 32.0-36.0 GM/DL MCHC Normal 32.4 LAB L200.25089 11-14.5 RDW Normal 13.3 LAB L200.32787 9.4-12.4 MPV Normal 10.1 LAB L200.04419 150-450 K/CU MM PLT Normal 260 LAB L200.62815 45-75 % NEUTROPHILS Normal % 49.0 LAB L200.33830 Less than 2 % IMMATURE Normal GRAN % 0.2 LAB L200.10581 20-40 % LYMPH % Normal 38.4 LAB L200.60096 2-10 % MONOCYTE % Normal 7.2 LAB L200.46387 0-5 % EOSINOPHIL Normal % 4.4 LAB L200.39489 0-2 % BASOPHIL % Normal 0.8 LAB L200.72697 2.0-8.3 K/CU MM NEUTROPHIL Normal ABS 4.40 LAB L200.66915 Less than 2 K/CU MM IMMATR GRAN Normal ABS 0.00 LAB L200.87874 0.9-4.4 K/CU MM LYMPH ABS Normal 3.40 LAB L200.36865 0.1-1.1 K/CU MM MONO ABS Normal 0.60 LAB L200.63048 0-0.5 K/CU MM EOS ABS Normal 0.40 LAB L200.53107 0-0.2 K/CU MM BASO ABS Normal 0.10 LAB L200.76822 Less than 1 % NRBC Normal 0.0 Performed By: #### L200.47496, L550.70846 #### [facility] LABORATORY [address] [place] [address] HGB A1C GLYCOHB Collected: 05/27/2017 Status: F Source: [facility] 11:10 AM [facility] REPOSITORY Order Comment: [place]: M TYPE CODE TESTS RESULT OUT OF REFERENCE UNITS RANGE LAB L550.59382 4.3-6.0 % High HGB A1C 6.4 GLYCOHB Performed By: #### L200.55822, L550.74119 #### [facility] LABOR[facility] [address] [place] [address] ABO/RH NC Collected: 05/27/2017 Status: F Source: [facility] 11:10 AM [facility] REPOSITORY Order Comment: [place]: M Is This Patient Going To Surgery? Y Surgery Date: 06/17/17 TYPE CODE TESTS RESULT OUT OF RANGE REFERENCE UNITS LAB B100.0400 O Normal BLOOD POSITIVE TYPE PATIENT RETYPE Collected: 05/27/2017 Status: F Source: [facility] 11:10 AM [facility] REPOSITORY Order Comment: [place]: M Is This Patient Going To Surgery? Y Surgery Date: 06/17/17 TYPE CODE TESTS RESULT OUT OF RANGE REFERENCE UNITS LAB B100.98806 O Normal RETYPE POSITIVE INTERP ANTIBODY SCREEN Collected: 05/27/2017 Status: F Source: [facility] 11:10 AM [facility] REPOSITORY Order Comment: [place]: M Is This Patient Going To Surgery? Y Surgery Date: 06/17/17 TYPE CODE TESTS RESULT OUT OF RANGE REFERENCE UNITS LAB B100.0680 Normal ANTIBODY NEGATIVE SCREEN MRSA PCR Collected: 05/27/2017 Status: F Source: [facility] 10:13 AM [facility] REPOSITORY Order Comment: NEEDS RECOLLECTED CAME OFF INVALID 2X [place]: M TYPE CODE TESTS RESULT OUT OF REFERENCE UNITS RANGE LAB L770.26964 NEGATIVE INDETERMINATE Normal MRSA PCR Result Comment: PLEASE NOTE: TESTING DONE BY PCR TECHNOLOGY. LAB L770.22970 NEGATIVE INDETERMINATE Normal SA PCR Result Comment: PLEASE NOTE: TESTING DONE BY PCR TECHNOLOGY. Performed By: #### L770.63367 #### [facility] LABORAT[facility] [address] [place] [address] Observed: 05/27/2017 Status: F Source: [facility] URINE CULTURE 10:13 AM [facility] REPOSITORY Order Comment: [place]: M URINE RESULT 20-30,000 COL/ML MIXED CHARISSE-PLEASE REPEAT-POSSIBLE CONTAMIN Performed By: #### M100.50569 #### [facility] LABORATORY [address] [place] [address] EKG Observed: 05/27/2017 Status: UNK Source: [facility] 9:16 AM [facility] REPOSITORY Procedure Date and Time: 05/27/17 1103 Test Reason : Blood Pressure : / mmHG Vent. Rate : 057 BPM Atrial Rate : 057 BPM P-R Int : 170 ms QRS Dur : 106 ms QT Int : 446 ms P-R-T Axes : 063 078 074 degrees QTc Int : 434 ms Sinus bradycardia Otherwise normal ECG No previous ECGs available Confirmed by CAROLE DELEON A. ([id number]) on 05/27/2017 6:19:39 PM Referred By: SANTOS Overread By: Cuate DELEON M.D.FACC Benny DDandT: 05/27/17 1103 TDandT: [facility] PAT[facility] MED[facility] REC #: [id number] [place] 0519208 ADMIT DATE: DISCHARGE DATE: ATTENDING PHY: Alma Saul DO ELECTROCARDIOGRAM REPORT CLB cc: [facility] PATIENT NAME: DONNA VIZCARRA [facility] Dr. Robles MEDICAL REC #: [id number] [place] [address] ADMIT DATE: DISCHARGE DATE: ATTENDING PHY: Alma Saul DO ELECTROCARDIOGRAM REPORT NCS AND/OR EMG Observed: 05/20/2017 Status: F Source: [facility] PATIENT 12:12 PM [facility] REPOSITORY [facility] Pulmonary Services/Neurology [address] [place] [address] MR#: [id number] Acct: [id number] Name: DONNA DE LEON Rep #: [id number] : 1955 61 From: Murphy Ulloa MD Referring Dr: Status: REG CLI Ordering Dr: Date: Location: [facility] Sex: F C NCS and/or EMG Patient Report Ordering Doctor: santos, DATE OF SERVICE: 05/20/17 A left lower extremity EMG and a bilateral lower extremity nerve conduction study performed on this 61-year-old female with a history of well-controlled diabetes, low back pain with disc disease as well as spinal stenosis, and a previous diagnosis of lumbar radiculopathy. She experiences weakness worse on the left joint pain and what she describes of nerve spasms. She also has a history of Graves' disease. Bilateral lower extremity sensory and motor nerve conduction study demonstrates mild slowing of the motor responses bilaterally. Amplitudes and distal latencies are relatively preserved and the sural sensory responses are preserved. Tibial H reflexes bilaterally are preserved. Left lower extremity needle electromyography was performed. Muscles evaluated included the extensor digitorum brevis, abductor hallucis, medial gastrocnemius, anterior tibialis, vastus medialis, and vastus lateralis. Distal muscles in the foot did demonstrate large motor units, this abnormality resolved more proximally. All muscles demonstrated normal insertional activity with absence of pathologic spontaneous activity. There is no pattern consistent with mononeuropathy or radiculopathy. Impression: Abnormal electrophysiologic study consistent with mild to moderate length dependent peripheral neuropathy likely idiopathic however Graves' disease may be a contributing factor as well as diabetes. 05/20/17 1212 <Electronically signed by Murphy Ulloa MD> Date Murphy Ulloa MD CC: ALMA SAUL; Jimmie Aguirre DO; Murphy Ulloa MD Date Dictated: 05/20/17 1007 Date Transcribed: 05/20/17 1007 Corporate Banking Officer: NF Signed ALLERGIES ALLERGIES DATE TYPE / CODE NAME / CODE REACTION SEVERITY SOURCE 04/06/2018 Drug iodine/Z95785 Anaphylaxis Unknown [facility] Allergy/416 0852(RXNORM) Hospital 317687(SNOM Repository ED CT) 04/06/2018 Drug ibuprofen/F00 Swelling Unknown [facility] Allergy/009 1155947([facility] 287790(SNOM M) Repository ED CT) 04/06/2018 Drug NSAIDS eye swelling [facility] Allergy/416 ([facility] 248277(SNOM l Repository ED CT) Anti-Inflamma /[id number](R XNORM) 04/06/2018 Drug atenolol/F006 Unknown [facility] Allergy/416 411543([facility] Hospital 577914(SNOM ) Repository ED CT) 04/06/2018 Drug metformin/F00 nausea, gas, [facility] Allergy/838 7018439([facility] 579342(SNOM M) Repository ED CT) ENCOUNTERS ENCOUNTERS ADMIT/DISCHARGE ACCOUNT NUMBER ADMITTING ENCOUNTER LOCATION SOURCE CLASS 05/01/2018 [id number] Ambulatory [facility] ding:WC Repository 04/22/2018 [id number] Ambulatory BMSBuilding: [facility] BMS.CF.[facility] Repository 04/21/2018/04/24/20 [id number] Ambulatory [address] ding:WC Repository 04/06/2018/04/06/20 [id number] Emergency [address] ding:ED Repository 02/06/2018 [id number] Ambulatory [facility] ding:PT Repository 02/05/2018 [id number] Ambulatory [facility] ding:LAB.FUT Repository URE 12/08/2017 [id number] BOB, Inpatient Building:[facility] Repository 11/05/2017/11/06/19 [id number] Ambulatory [facility] ding:PT Repository 09/30/2017 [id number] Ambulatory [facility] ding:MRI Repository 09/18/2017 [id number] [facility]ulatory [facility] ding:OPBD Repository 09/02/2017 [id number] Ambulatory [facility] ding:BHIOP Repository 08/27/2017 [id number] [facility]ulatory [facility] ding:LAB Repository 08/19/2017 [id number] Ambulatory Building:[facility] Repository 08/19/2017 [id number] Ambulatory Building:[facility] Repository 08/19/2017 [id number] Ambulatory [facility] ding:HPRAD Repository 08/19/2017/08/20/19 [id number] Ambulatory [facility] Repository 06/17/2017 [id number] Inpatient [facility] Repository ng:H.SD 06/02/2017 [id number] [place] [facility] [place] ng:H.LAB 06/02/2017 [id number] [place] [facility] [place] ng:H.CT 05/27/2017 [id number] [place] [facility] [place] ng:H.PAT 05/20/2017 [id number] Ambulatory [facility] ding:PSN Repository PAYERS PAYERS ENCOUNTER GUARANTOR PAYER SUBSCRIBER SOURCE 05/01/2018 DONNA RIDDLE Primary [id number] Insurance:HEIDY GILMORE: [facility] MEDICARE [facility] [id number] Number: Repository [address]Ddl: (755) [id number] [phone] () Date:3116-77-05YR [id number] [place] [address]AR: 05/01/2018 Secondary NOT GIVENUNK [place] Insurance:SELF PAY [facility] Number: Effective Repository Date:2018-04-25 04/22/2018 DONNA RIDDLE Primary NOT GIVENUNK [facility] [id number] Insurance:SELF PAY [facility] Number: Effective Repository [address]Ned: (949) Date:2018-04-22 [phone] (HP) 04/21/2018 DONNA RIDDLE Primary DONNA G JANESSA [facility] [id number] Insurance:ANTHEM CARTIERDOB: [facility] MEDICARE [facility] [id number] Number: Repository [address]Faa: (949) [id number] [phone] (HP) Date:4010-38-75CX [address], [place] [address]UJ: 04/21/2018 Secondary NOT GIVENUNK [place] Insurance:SELF PAY [facility] Number: Effective Repository Date:2018-04-15 04/06/2018 DONNA RIDDLE Primary DONNA Cardenas JANESSA [facility] [id number] Insurance:ANTHEM CARTIERDOB: Community [facility] MEDICARE PPOPolicy [id number] County [facility] Number: Repository [address]Xfu: (949) [id number] [phone] (HP) Date:9897-41-09UC [address], [place] [address]YN: 04/06/2018 Secondary NOT GIVENUNK [place] Insurance:SELF PAY [facility] Number: Effective Repository Date:2018-04-06 02/06/2018 DONNA RIDDLE Primary DONNA G JANESSA [place] [id number] Insurance:ANTHEM CARTIERDOB: [facility] MEDICARE [facility] [id number] County [facility] Number: Repository [address]Nbf: ([phone] [id number] [phone] (HP) Date:4730-98-17FL [address]XDGAWQF, [place] [address]HH: 02/06/2018 Secondary NOT GIVENUNK [place] Insurance:SELF PAY [facility] Number: Effective Repository Date:2018-01-22 02/05/2018 DONNA Cardenas JANESSA [facility] DONNA JANESSA [place] [id number] Insurance:HEIDY RONQUILLOB: [facility] [id number] Number: Repository [address]Ntm: (949) [id number] [phone] () Date:1525-76-81XF [address] [place] [address]NN: 02/05/2018 Secondary NOT GIVENUNK [place] Insurance:SELF PAY [facility] Number: Effective Repository Date:2017-11-12 12/08/2017 [facility] JANESSACARTIERDO Insurance:MEDICARE JANESSATORIB: [place] B: HEIDY [facility] [id number] [facility] Number: [facility] [id number] [place] [address]Zuq: (949) Repository [place], [place] Date:4402-85-47Hrps [phone] () [address]Yea: ([phone]) Name:[facility] [phone] () 11/05/2017 DONNA Cardenas JANESSA [facility] J[facility]ES[facility] [place] [id number] Insurance:HEIDY RONQUILLOB: [facility] [id number] Number: Repository [phone]: (949) [id number] [phone] () Date:9027-53-91AU [id number] [place] [address]BG: 11/05/2017 Secondary NOT GIVENUNK [place] Insurance:SELF PAY [facility] Number: Effective Repository Date:2017-09-19 09/30/2017 DONNA RIDDLE [facility] JANESSA [facility] [id number] Insurance:ANTHEM CARTIERDOB: Community LEDEZMA MEDICARE [facility] [id number] [facility] Number: Repository [address]Cdp: (949 [id number] [phone] (HP) Date:5396-52-79QE [address]XECCWXC [place] [address]NA: 09/30/2017 Secondary NOT GIVENUNK [place] Insurance:SELF PAY [facility] Number: Effective Repository Date:2017-09-15 09/18/2017 DONNA Ronald JANESSA Primary DONNA G JANESSA [facility] [id number] Insurance:ANTHEM CARTIERDOB: Community LEDEZMA MEDICARE [facility] [id number] County [facility] Number[place] Repository [address]Wlh: (949 [id number] [phone] (HP) Date:6845-90-07YL [address]EKKSEPG [place] [address]RD: 09/18/2017 Secondary NOT GIVENUNK [place] Insurance:SELF PAY [facility] Number: Effective Repository Date:2017-09-15 09/02/2017 DONNA Ronald JANESSA Primary DONNA G JANESSA [place] [id number] Insurance:ANTHEM CARTIERDOB: Community LEDEZMA MEDICARE [facility] [id number] County [facility] Number: Repository [address]Nzv: (949) [id number] [phone] (HP) Date:9029-24-61TU [address]GDGZYXT [place] [address]YT: 09/02/2017 Secondary NOT GIVENUNK [place] Insurance:SELF PAY [facility] Number: Effective Repository Date:2017-09-02 08/27/2017 DONNA Ronald JANESSA Primary DONNA G JANESSA [facility] [id number] Insurance:ANTHEM CARTIERDOB: Community LEDEZMA [id number] [place] Number: Repository [address]Ajo: (949) [id number] [phone] (HP) Date:9151-26-97LB [address]GMYYWXG, [place] [address]QV: 08/27/2017 Secondary NOT GIVENUNK Carmichael Insurance:SELF PAY [facility] Number: Effective Repository Date:2017-08-27 [facility]2017 [facility]HEM TORIDOB[facility] [place] [id number] Number: Repository [address]Bbz: [phone] [id number] [phone] (HP) Date:8516-24-62KG [address]RCRGDNR, [place] [address]KA: 08/19/2017 Secondary NOT GIVENUNK Haleigh Insurance:SELF PAY [facility] Number: Effective Repository Date:2017-08-19 08/19/2017 [place] [address] Insurance:ANTHYUN TORIDOB: Community MCCLURE MEDICARE PP[place]olicy [id number] Number: Repository [id number]: [id number] [phone] (HP) Date:5809-08-10KI [address]VIPTFEP, [place] [address]WM: 08/19/2017 Secondary NOT GIVENUNK Haleigh Insurance:SELF PAY [facility] Number: Effective Repository Date:2017-08-19 06/17/2017 [facility]:ANTHEM GABLECARIERUNK [facility] [place] MCCLURE MEDICARE [facility]V [facility] Number: [id number]: (949) [id number] [phone] (HP) Date:9849-21-06GV [address]MZOAR, [place] [address]OD: 06/02/2017 [place] [address] Insurance:[facility] MEDICARE ALL ADV Repository [place], [place] PLANSPolicy Number: [id number]: (949) [id number] [phone] (HP) Date:[address]XAIIPFP [place] [address]BV: 06/02/2017 [facility] [id number] [facility] Repository [place] PLANSPolicy Number: [id number]: (949) [id number] [phone] (HP) Date:4361-31-78FL [address]DELJ[address] [place] [address]BZ: 05/27/2017 [facility] [id number] Insurance:LUÍSCHI [facility] MEDICARE ALL ADV Repository [place], [place] PLANSPolicy Number: [id number]: (949) [id number] [phone] (HP) Date:[address]YYPRCIK [place] [address]MK: 05/20/2017 [facility] JANESSA Haleigh [id number] Insurance:HEIDY RONQUILLOB: [facility] [id number], [place] Number: Repository [id number]: (949) [id number] [phone] (HP) Date:4503-65-07NQ [address]RHEFA, [place] [address]BL: 05/20/2017 Secondary NOT GIVENUNK Haleigh Insurance:SELF PAY [facility] Number: Effective Repository Date:2017-04-07
== END 2018-04-24 23:59 ==
LOC: WC 15:15
PROVIDERS: Family Provider Family Medicine; PCP Family Medicine; Visit Provider Nurse Practitioner Family
DX: L89.222 Pressure ulcer of left hip, stage 2 (principal); L89.212 Pressure ulcer of right hip, stage 2; T24.012A Burn of unspecified degree of left thigh, initial encounter; T24.011A Burn of unspecified degree of right thigh, initial encounter; F17.200 Nicotine dependence, unspecified, uncomplicated; Z79.899 Other long term (current) drug therapy
CPT/HCPCS: 11042; 99213; G0463

== ENCOUNTER 2018-05-01 15:00 | Outpatient (RCR) | payer MEDICARE, SELFPAY ==
[2018-04-25 02:10] VITALS: BP 140/88; PULSE 88; RESP 18; TEMP 36.7
[2018-05-01 15:40] VITALS: BP 108/60; PULSE 71; RESP 18; TEMP 36.9; BMI 31.4
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
== END 2018-05-25 23:59 ==
LOC: WC 15:00
PROVIDERS: Family Provider Family Medicine; PCP Family Medicine; Visit Provider Family Medicine
DX: T24.312A Burn of third degree of left thigh, initial encounter (principal); T24.311A Burn of third degree of right thigh, initial encounter; X08.8XXA Exposure to other specified smoke, fire and flames, initial encounter; T79.8XXA Other early complications of trauma, initial encounter
CPT/HCPCS: 11042; 87070; 87075; 87205

== ENCOUNTER 2018-06-02 08:45 | Outpatient (RCR) | payer SELFPAY ==
[2018-05-26 01:24] VITALS: BP 108/60; PULSE 71; RESP 18; TEMP 36.9
== END 2018-06-25 23:59 ==
LOC: WC 08:45
PROVIDERS: Family Provider Family Medicine; PCP Family Medicine; Visit Provider Family Medicine
DX: Z09 Encounter for follow-up examination after completed treatment for conditions other than malignant neoplasm (principal)

== ENCOUNTER 2018-06-26 13:13 | Outpatient (RCR) | payer MEDICARE, SELFPAY ==
[2018-06-26 13:21] VITALS: BP 127/74; PULSE 77; RESP 18; TEMP 35.2; BMI 31.4
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
== END 2018-07-23 23:59 ==
LOC: WC 13:13
PROVIDERS: Family Provider Family Medicine; PCP Family Medicine; Visit Provider Family Medicine
DX: Z09 Encounter for follow-up examination after completed treatment for conditions other than malignant neoplasm (principal)
CPT/HCPCS: 99213; G0463

== ENCOUNTER 2018-10-05 04:53 | Emergency (ER) | payer MEDICARE, SELFPAY ==
[2018-10-05 04:56] VITALS: BP 88/47; PULSE 67; RESP 13; TEMP 36.4; O2SAT 96; BMI 32.4
--- NOTE | 2018-10-05 05:04 | ED.RN ---
pt states her bp is generally 85-90's sys at home. dr. arriaga made aware of bp, no further orders at this time will continue to monitor.
--- NOTE | 2018-10-05 05:24 | RAD_ITS ---
HISTORY: Back Pain Patient fell onto floor and landed on tailbone COMPARISON: Lumbar spine MRI 09/30/2017 and plain film lumbar spine 08/19/2017 FINDINGS: XR Spine Lumbar 3 views With compared to previous, no significant change. Bony demineralization and bony detail is partly limited in this regard. No acute fracture seen. The lumbar vertebra appear normal in height. Facet joint arthritis with stable grade 1 anterolisthesis of L4 on L5. Marked narrowing of the L4-5 and L5-S1 disc levels with discogenic vertebral sclerosis at these levels. L5-S1 marginal endplate spurring. The SI joints appear preserved. Atherosclerotic calcifications. Surgical clips in the region of the gallbladder fossa. RAD/Lumbar Spine 2 or 3 Views IMPRESSION: 1. Stable findings. No acute fracture seen. 2. Chronic degenerative changes, as above. at 0621 Reported and signed by: Josh Glass MD Electronically Signed: Josh Glass, at 6:20 EDT Tel , Service support ,
--- NOTE | 2018-10-05 05:34 | ED.RN ---
TRIED TO CALL PT SON FOR HER AT [phone], SON DIDN'T ANSWER THIS NURSE ASKED THE PT IF I COULD CALL ANYONE ELSE FOR HER. PT SAID YOU DON'T HAVE TO CALL ANYONE FOR ME BUT THANK YOU.
--- NOTE | 2018-10-05 06:36 | ED.DCSUM_ITS ---
- ER Visit Summary Date of Service: 10/05/18 Chief Complaint: Fall History of Present Illness: The patient is a 62 F who presents after a fall. She states she tripped on a mat and fell into a seated position. She does have chronic back pain at baseline. However she complains of increased lower back pain since her fall. She otherwise denies any complaints such as fevers chest pain shortness of breath. No injury to extremities. No loss of bowel or bladder control. No abdominal pain. Physical Examination: Blood pressure 88/47 vitals otherwise normal Heart regular rate and rhythm Lungs clear Abdomen soft nontender nondistended Patient does have midline and paraspinal lumbar tenderness Extremities nontender with normal strength and sensation Test Results: Lumbar x-rays are stable no fractures. Emergency Department Course and Treatment: Patient presents after mechanical fall with lower back pain. She is already on narcotics at home. In regards to her blood pressure patient states that this is her baseline and she is normally 88 or 90 systolic. She is not dizzy. She otherwise has no complaints and states her fall was mechanical. She was discharged to follow-up as an outpatient. Treatment Plan: [] Disposition: Discharge Impression: Lower back pain This note was generated with [employer] dictation software. It may contain incorrect words, spelling, and punctuation that were not noted in review of the chart prior to signing ED Disposition - Plan for ED Patient: Referrals: Jimmie Aguirre DO [Primary Care Provider] -
--- NOTE | 2018-10-05 06:36 | ED.DEP ---
ED Disposition - Plan for ED Patient: Instructions: ED Mechanical Fall, ED Low Back Pain Injury Referrals: Jimmie Aguirre DO [Primary Care Provider] -
[2018-10-05 06:54] VITALS: BP 82/59; PULSE 86; RESP 16; O2SAT 96
== END 2018-10-05 07:25 | disposition home or self-care (01) ==
PROVIDERS: Emergency Provider Emergency Medicine; Family Provider Family Medicine; PCP Family Medicine
DX: M54.5 Low back pain (principal); G89.29 Other chronic pain; W18.09XA Striking against other object with subsequent fall, initial encounter; Y93.9 Activity, unspecified; Y92.89 Other specified places as the place of occurrence of the external cause; Y99.9 Unspecified external cause status; K21.9 Gastro-esophageal reflux disease without esophagitis; I10 Essential (primary) hypertension; E78.00 Pure hypercholesterolemia, unspecified; Z72.0 Tobacco use
CPT/HCPCS: 72100; 99283

== ENCOUNTER → 2018-12-17 16:30 | Outpatient (CLI) | payer MEDICARE, SELFPAY ==
--- NOTE | 2018-12-17 16:19 | CT_ITS ---
STUDY: CT LUMBAR SPINE WITHOUT CONTRAST REASON FOR EXAM: Female, 63 years old. Chronic mid line back pain. RADIATION DOSAGE (If Supplied By Facility): CTDIvol = ( 16.78 ) mGy, DLP = ( 458.18 ) mGycm TECHNIQUE: The patient was scanned in a multi detector CT scanner. High resolution transaxial imaging was performed. Images were obtained from T12 to sacrum. Sagittal and coronal images were reconstructed. Individualized dose optimization techniques were used for this CT. COMPARISON: MRI dated September 30, 2017 FINDINGS: There is no substantial scoliosis. There is a L1 superior endplate deformity that appears chronic with approximately 50% height loss of the anterior vertebra. L1-2: There is endplate spondylosis. There is mild facet hypertrophy. Normal central canal and bilateral lateral recesses. Normal bilateral intervertebral neural foramina. L2-3: There is endplate spondylosis and facet hypertrophy. Normal central canal and bilateral lateral recesses. Normal bilateral intervertebral neural foramina. L3-4: There is endplate spondylosis. There is a diffuse disc bulge and facet hypertrophy associated with stenosis of the central canal. Normal bilateral intervertebral neural foramina. L4-5: There is a grade 1 anterior spondylolisthesis of L4 on L5. There is disc space narrowing associated with vacuum disc phenomenon. There is a diffuse disc bulge and facet hypertrophy associated with stenosis of the central canal and bilateral narrowing of the intervertebral neuroforamina. L5-S1: There is disc space narrowing associated with vacuum disc phenomenon. There is a posterior disc osteophyte and facet hypertrophy associated with stenosis of the central canal and narrowing of the right neural foramina. There are peripheral calcifications of the abdominal aorta and common iliac arteries.. CT/Spine Lumbar without Contrast IMPRESSION: Multilevel degenerative changes, as described above. L1 superior endplate deformity of uncertain chronicity, likely chronic. Atherosclerosis. Electronically Signed: Ashlee Abbasi MD at 19:21 EDT Tel , Service support ,
--- NOTE | 2018-12-17 16:40 | MRI_ITS ---
STUDY: MRI THORACIC SPINE WITHOUT CONTRAST REASON FOR EXAM: Female, 63 years old. pathological fx back pain, bilat leg weakness, falls TECHNIQUE: Standardized fat and water weighted pulse sequences were obtained in the sagittal and axial planes. COMPARISON: CT lumbar spine same day FINDINGS: An acute compression fracture of the L1 vertebral body is noted with moderate loss of anterior height and mild loss of posterior height. Mild retropulsion without severe central canal stenosis. No acute thoracic spine compression fractures are seen. Nonspecific signal abnormalities are present in the left T10 pedicle, left T11 pedicle, left T12 pedicle, right T10 inferior articulating facet, left T10 transverse process, and the T10, T11, and T12 spinous processes. These areas are abnormally T1 hypointense and T2 hyperintense. Underlying acute or subacute fractures and/or bone bruising are considered most likely given history of falls. Other differential possibilities include atypical hemangiomata and possibly neoplasm. Consider CT correlation to further evaluate the nature of these abnormalities. No thoracic epidural hematomas are seen. Diffuse spondylosis is noted. At T6-7, central disc protrusion is present with minimal central canal stenosis. At T7-8, central disc protrusion is present with mild central canal stenosis. At T10-11, bulging annulus is present without compressive sequelae. No evidence of exiting nerve root impingement. Paraspinal soft tissues are normal. Dilated common bile duct. MRI/Spine Thoracic (Routine) IMPRESSION: Acute L1 compression fracture with mild retropulsion. No acute thoracic spine compression fractures. No epidural hematoma. Multiple sigmoid normalities in the lower thoracic spine as described above. Underlying acute or subacute fractures and/or bone bruising are considered most likely given the history of falls. Other differential possibilities include atypical hemangiomata and possibly neoplasm. Consider CT correlation to further evaluate the nature of these abnormalities. Electronically Signed: Aram Musa MD at 18:20 EDT Tel , Service support ,
== END ==
PROVIDERS: Family Provider Family Medicine; PCP Family Medicine
DX: M84.48XA Pathological fracture, other site, initial encounter for fracture (principal); M54.5 Low back pain; G89.29 Other chronic pain
CPT/HCPCS: 72131; 72146

== ENCOUNTER 2019-01-09 16:15 | Inpatient (IN) | payer MEDICARE, SELFPAY ==
[2019-01-09] VITALS (22 sets, daily range): BP systolic 65–138; BP diastolic 40–108; PULSE 47–86; RESP 12–20; TEMP 36.6–36.8; O2SAT 90–100; BMI 32.2; BMI 31.4
[2019-01-09] MEDS: 0.9% Normal Saline 1,000 ML 500 ML IV ×2 (16:41→23:20)
--- NOTE | 2019-01-09 16:52 | EKG12_ITS ---
Test Reason : O.D. Blood Pressure : / mmHG Vent. Rate : 083 BPM Atrial Rate : 083 BPM P-R Int : 178 ms QRS Dur : 100 ms QT Int : 346 ms P-R-T Axes : 060 083 -49 degrees QTc Int : 406 ms Normal sinus rhythm ST & T wave abnormality, consider inferior ischemia ST & T wave abnormality, consider anterolateral ischemia Abnormal ECG Confirmed by SAMMY EASLEY, NERY ([id number]), restaurant expeditor ARMAND COUCH ([id number]) on 01/12/2019 1:19:55 PM Referred By: Lashae Robert Confirmed By:NERY CHRISTIANSON MD
[2019-01-09] MEDS: 0.9% Normal Saline 1,000 ML 1000 ML IV ×2 (16:55→17:55)
--- NOTE | 2019-01-09 16:56 | ED.RN ---
NO OLD EKG
--- NOTE | 2019-01-09 16:58 | ED.VISSUMM ---
- ER Visit Summary Date of Service: 01/09/19 Chief Complaint: Squad called due to decreased mental status secondary to overmedicated herself History of Present Illness: The patient is a 63 F chronic pain management. Patient states she is a history of hypertension and an L1 compression fracture. She states she is just been sore all over. She is had some chills. And she took her Percocet today. Family was having a hard time arousing her called the squad who gave her Narcan. She is also been hypotensive. She denies vomiting, diarrhea or melena. No chest pain or abdominal pain. Physical Examination: Older female initial blood pressure is 88/54 currently 79/50. Patient also presents hypoxic on 2 L nasal cannula her pulse is only 92%. H EENT exam unremarkable. Neck nontender no lymphadenopathy. No JVD. Lungs clear to auscultation bilaterally. Heart regular rhythm no murmur. Abdomen soft nontender. Normal bowel sounds no peritoneal signs. Remedies moves all 4. Neurovascular intact. Calves are nontender without edema. Neurologically she is awake. She is alert she is answering questions and following commands. Test Results: White count is elevated 20,000. Hemoglobin 9.8. No bands. Electrolytes potassium 3.2. Gap of 8. BUN 38 creatinine 2.8 for consistent for acute kidney injury. Her last creatinine was 0.8. UA is unremarkable other than blood. No white cells and no nitrates. No bacteria. Troponin normal. Lactic acid is normal at 1.2. Alcohol is less than 3. EKG sinus rhythm rate [address]-T wave abnormalities in V4 through V6 no old EKG available for comparison. Chest x-ray shows a right lower lobe pneumonia read by myself and the radiologist. Emergency Department Course and Treatment: Patient is hypotensive will be given 2 L of fluid. Her work-up is pending. Treatment Plan: Repeat exam at 2052 PM the patient is better. And is improving. Her current blood pressure 100/54. I will write her for 1/3 L of normal saline. And start her on both Rocephin and Zithromax for community-acquired pneumonia. I also feel that she is septic. I will speak to the hospitalist about admission. Disposition: admission Impression: Acute right lower lobe pneumonia Acute sepsis Hypotension Hypoxia This note was generated with [employer] software. It may contain incorrect words, spelling, and punctuation that were not noted in review of the chart prior to signing ED Disposition - Plan for ED Patient: Referrals: Jimmie Aguirre DO [Primary Care Provider] -
--- NOTE | 2019-01-09 17:05 | RAD_ITS ---
STUDY: X-RAY CHEST REASON FOR EXAM: Female, 63 years old. Unresponsive TECHNIQUE: AP COMPARISON: None. FINDINGS: There is air space opacity in the right lung base. Patient is rotated. There is no demonstrated pleural abnormality. Normal size heart. Normal mediastinum and kayla. Normal visualized pulmonary arteries. There is atherosclerotic calcification of the aortic arch with tortuosity. No acute bony process. There is no demonstrated abnormality of the visualized soft tissue structures of the upper abdomen. RAD/Chest 1 View (Portable) IMPRESSION: Air space disease in the right lower lobe could represent pneumonia. Follow up is recommended. Electronically Signed: Isael Kearney MD ([facility]) at 17:18 EDT , Service support ,
[2019-01-09 17:11] LABS: Absolute Lymphocyte Count 2.46 X10^3/uL (0.83-4.51); Absolute Neutrophil Count 16.8 X10^3/uL (2.0-7.7); Basophil# 0.03 X10^3/uL; Basophil% 0.1 % (0-1); Eosinophil# 0.29 X10^3/uL; Eosinophils% 1.4 % (0-5); Hematocrit 35.6 % (37-47); Hemoglobin 11.8 g/dL (12.0-15.0); Lymphocyte # 2.46 X10^3/ul (4.0); Lymphocyte % 11.9 % (19-41); Mean Corp Hgb Conc 33.1 g/dL (32-36); Mean Corpuscular Hgb 28.5 pg (27.0-32.0); Mean Platelet Vol. 10.5 fl (6.2-12.0); Monocyte# 0.85 X10^3/uL; Monocyte% 4.1 % (0-10); NRBC Flagged by Analyzer 0 % (0-5); Neutrophil # 16.83 X10^3/uL (2.7-7.7); Neutrophil % 81.6 % (47-70); Platelet Count 256 K/mm3 (150-450); RBC Distribution Width CV 14.2 % (11.6-14.6); RBC Distribution Width SD 43.8 fl (35.1-43.9); Red Blood Count 4.14 M/mm3 (4.2-5.4); White Blood Count 20.6 K/mm3 (4.4-11.0)
[2019-01-09 17:28] LABS: Alcohol, Blood (Medical)-Serum < 3.0 mg/dL
[2019-01-09 17:33] LABS: Anion Gap 8 (5-15); BUN 38 mg/dL (7-18); BUN/Creat Ratio 13.6 RATIO (10-20); Calcium,Total 8.6 mg/dL (8.5-10.1); Chloride 101 mmol/L (98-107); EST Glomerular Filtration Rate 18 mL/min (>60); Est Glom Filt Rate - Afr Amer 22 mL/min (>60); Estimated Creatinine Clearance 19.75 ml/min; Glucose 123 mg/dL (74-106); Potassium 3.2 mmol/L (3.5-5.1); Sodium Level 135 mmol/L (136-145)
[2019-01-09 17:38] LABS: Lactic Acid 1.2 mmol/L (0.4-2.0)
[2019-01-09 18:04] LABS: Bacteria 0 SEEN /hpf (None Seen); Mucous, Urine 0 SEEN /hpf (<or=2+)
[2019-01-09 18:06] LABS: Color, Urine Yellow (Yellow); Glucose, Dipstick Normal (Normal); Ketone-Dipstick 5 mg/dl (Negative); Leukocyte Esterase-Dipstick 25 /ul (Negative); Nitrite-Dipstick Negative (Negative); Occult Blood-Urine 250 /ul (Negative); Protein-Dipstick 30 mg/dl (Negative); Urine Bilirubin Dipstick Negative (Negative); Urine Clarity Clear (Clear); Urine Urobilinogen Normal (Normal)
[2019-01-09 18:26] LABS: Red Blood Cells-Urine 0-5 SEEN /hpf (0-5); Squamous Epithelial Cells - UA 0-5 SEEN /hpf (5-10); White Blood Cells 0-5 SEEN /hpf (0-5)
[2019-01-09 18:28] LABS: Hyaline Cast 5-10 SEEN /lpf (0-5)
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
[2019-01-09] MEDS: Azithromycin 250 MG Tablet 500 MG PO (21:20)
[2019-01-09] MEDS: 0.9% Normal Saline 1,000 ML 999 ML IV (21:20)
[2019-01-09] MEDS: Ceftriaxone 1 GM/50 ML BAG IV (21:21)
--- NOTE | 2019-01-09 21:38 | ED.RN ---
report called to [employer] [facility].
[2019-01-09] MEDS: 0.9% Normal Saline 1,000 ML 150 ML IV (22:27)
[2019-01-09] MEDS: Pravastatin 40 MG Tablet PO (23:05)
[2019-01-10] VITALS (78 sets, daily range): BP systolic 83–135; BP diastolic 31–72; PULSE 49–75; RESP 10–22; TEMP 36.6–37.2; O2SAT 92–99
[2019-01-10 00:03] LABS: Thyroid Stim Hormone (TSH) 0.07 uIU/mL (0.358-3.74)
[2019-01-10] MEDS: 0.9% Normal Saline 1,000 ML 200 ML IV (00:30)
[2019-01-10 05:29] LABS: Absolute Lymphocyte Count 3.31 X10^3/uL (0.83-4.51); Absolute Neutrophil Count 11.5 X10^3/uL (2.0-7.7); Basophil# 0.04 X10^3/uL; Basophil% 0.3 % (0-1); Eosinophil# 0.22 X10^3/uL; Eosinophils% 1.4 % (0-5); Hematocrit 33.7 % (37-47); Hemoglobin 11.2 g/dL (12.0-15.0); Lymphocyte # 3.31 X10^3/ul (4.0); Mean Corp Hgb Conc 33.2 g/dL (32-36); Mean Corpuscular Hgb 28.5 pg (27.0-32.0); Mean Corpuscular Volume 85.8 fL (81-99); Mean Platelet Vol. 10.4 fl (6.2-12.0); Monocyte# 0.59 X10^3/uL; Monocyte% 3.7 % (0-10); NRBC Flagged by Analyzer 0 % (0-5); Neutrophil # 11.48 X10^3/uL (2.7-7.7); Neutrophil % 72.8 % (47-70); Platelet Count 270 K/mm3 (150-450); Red Blood Count 3.93 M/mm3 (4.2-5.4); White Blood Count 15.8 K/mm3 (4.4-11.0)
--- NOTE | 2019-01-10 05:29 | PCM.RX.CS ---
Consult Pharmacy has been consulted to manage selected antiobiotic: Vancomycin Type of Consult: New start Suspected Infection: Sepsis, Pneumonia Microbiology: Microbiology 01/09/19 17:55 Urine, Clean Catch Streptococcus pneumoniae Antigen (M - Final 01/09/19 17:55 Urine, Clean Catch Legionella Antigen - Final Weight used for dosin.7 kg Estimated Creatinine Clearance: 23.67 Goal Trough: 15-20 mcg/mL Pharmacy Plan for Drug Dosing: Pharmacy Service will continue to monitor and adjust dosing as required. Medications Vancomycin HCl 1,250 mg/ (Sodium Chloride) 275 mls @ 167 mls/hr IV X1 ONE Stop: 01/10/19 05:38 Last Admin: 01/10/19 04:35 Dose: 167 mls/hr Documented by: Vancomycin HCl 750 mg/ Sodium (Chloride) 265 mls @ 250 mls/hr IV Q24H FINESSE Follow-Up Labs: Trough Vancomycin Labs to be done on [date and time ordered]: 01/12 @ 0402
--- NOTE | 2019-01-10 05:55 | ECHOD_ITS ---
Reason For Study: Arrhythmia Procedure This was a 2D Doppler, Color Flow transthoracic echocardiogram. Exam performed portable in ICU/CCU. Left Ventricle Normal LV size. Left ventricular systolic function is normal. The estimated ejection fraction is 55 %. No evidence for diastolic dysfunction. No regional wall motion abnormalities noted. Right Ventricle Normal RV size. Normal systolic function. Atria Normal left atrium. Normal right atrium. Mitral Valve Normal mitral valve. Trivial mitral valve insufficiency. Tricuspid Valve Normal tricuspid valve. Mild tricuspid valve insufficiency. Pulmonary artery systolic pressure is 26 mmHg. Aortic Valve Normal aortic valve. Pulmonic Valve Normal pulmonic valve. Great Vessels Normal aortic root. The pulmonary artery is normal size. Normal inferior vena cava. Pericardium/Pleural No pericardial effusion. MMode/2D Measurements & Calculations LVIDd: 5.1 cm IVSd: 0.93 cm Ao root diam: 3.0 cm LVIDs: 3.1 cm LVPWd: 0.91 cm RVDd: 3.4 cm FS: 39.5 % LAV(MOD-bp): 47.3 ml LVAd ap4: 19.7 cm2 SV(MOD-sp4): 32.3 ml LAV(MOD-bp) Indexed: 23.9 ml/m2 EDV(MOD-sp4): 45.7 ml LAV(MOD-sp2): 49.6 ml EDV(sp4-el): 46.4 ml LAV(MOD-sp4): 42.2 ml LVAs ap4: 8.9 cm2 ESV(MOD-sp4): 13.4 ml ESV(sp4-el): 12.3 ml EF(MOD-sp4): 70.7 % EF(sp4-el): 73.5 % SV(sp4-el): 34.1 ml LA A4 area: 17.3 cm2 LA dimension(2D): 4.4 cm RA A4 area: 12.3 cm2 Doppler Measurements & Calculations MV E max alex: 92.5 cm/sec Lat Peak E' Alex: 12.8 cm/sec Med Peak E' Alex: 7.8 cm/sec MV A max alex: 67.2 cm/sec E/E' lat: 7.2 E/E' med: 11.8 MV E/A: 1.4 Ao V2 max: 157.7 cm/sec LV V1 max: 126.4 cm/sec PA V2 max: 83.8 cm/sec Ao max P.0 mmHg LV V1 max P.4 mmHg Ao V2 mean: 114.2 cm/sec Ao mean P.7 mmHg Ao V2 VTI: 37.7 cm TR max alex: 239.3 cm/sec TR max P.9 mmHg Interpretation Summary Normal LV size. Left ventricular systolic function is normal. The estimated ejection fraction is 55 %. No evidence for diastolic dysfunction. Pulmonary artery systolic pressure is 26 mmHg. Ordering Physician: Lashae Robert Referring Physician: Jimmie Aguirre Performed By: Zuly Al RDCS, RVT
[2019-01-10 06:13] LABS: Anion Gap 5 (5-15); BUN 20 mg/dL (7-18); BUN/Creat Ratio 17.7 RATIO (10-20); Calcium,Total 7.9 mg/dL (8.5-10.1); Chloride 115 mmol/L (98-107); Creatinine, Serum 1.13 mg/dL (0.55-1.02); EST Glomerular Filtration Rate 52 mL/min (>60); Est Glom Filt Rate - Afr Amer 63 mL/min (>60); Estimated Creatinine Clearance 48.94 ml/min; Glucose 149 mg/dL (74-106); Potassium 3.6 mmol/L (3.5-5.1); Sodium Level 145 mmol/L (136-145)
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
[2019-01-10 06:48] LABS: T4 Free Direct 1.45 ng/dL (0.76-1.46)
[2019-01-10] MEDS: Levothyroxine 137 MCG Tablet PO (07:09)
[2019-01-10] MEDS: oxyCODONE 5 MG Tablet 20 MG PO ×3 (07:10→22:26)
[2019-01-10] MEDS: Budesonide Respules 0.5 MG/2 ML AMPUL.NEB. INHALATION (07:28)
[2019-01-10] MEDS: Albuterol 2.5 MG/3 ML VIAL.NEB. INHALATION ×2 (07:28→12:57)
--- NOTE | 2019-01-10 08:02 | PCM.RX.CS ---
Consult Pharmacy has been consulted to manage selected antiobiotic: Vancomycin Type of Consult: Follow-up Suspected Infection: Sepsis, Pneumonia Prior Doses of Antibiotics Received/Current Regimen: Received 1250mg IV x1 initially this morning at 04:35 Labs: Sodium 145 mmol/L (136-145) 01/10/19 05:20 Potassium 3.6 mmol/L (3.5-5.1) 01/10/19 05:20 Chloride 115 mmol/L (98-107) H 01/10/19 05:20 Carbon Dioxide 25.0 mmol/L (21.0-32.0) 01/10/19 05:20 5 (5-15) 01/10/19 05:20 BUN 20 mg/dL (7-18) H 01/10/19 05:20 1.13 mg/dL (0.55-1.02) H 01/10/19 05:20 Est GFR (MDRD) Af Amer 63 mL/min (>60) 01/10/19 05:20 Est GFR (MDRD) Non-Af 52 mL/min (>60) L 01/10/19 05:20 17.7 RATIO (10-20) 01/10/19 05:20 Glucose 149 mg/dL (74-106) H 01/10/19 05:20 Microbiology: Microbiology 01/09/19 17:55 Urine, Clean Catch Streptococcus pneumoniae Antigen (M - Final 01/09/19 17:55 Urine, Clean Catch Legionella Antigen - Final Weight used for dosin kg Estimated Creatinine Clearance: 59 ml/min Goal Trough: 15-20 mcg/mL Pharmacy Plan for Drug Dosing: The patient's SCr/CrCl improved this morning so will change dosing from what was first recommended by pharmacy. The patient's SCr is now 1.13 (improved from 2.8) and CrCl is now at 59 ml/min (calculated using an adjusted body weight of 72kg). As a result, we will change the dosing to 1000mg IV q12h and order a trough before the 4th total dose. Pharmacy Service will continue to monitor and adjust dosing as required. Follow-Up Labs: Trough Vancomycin Labs to be done on [date and time ordered]: 01/11/19 16:30
[2019-01-10 08:32] LABS: M R Staph aureus DNA By PCR Negative (Negative); Probe Check PASS; Specimen Processing Control PASS
--- NOTE | 2019-01-10 09:06 | PCM.PN.HOSP ---
Subjective: Feeling okay, no issues overnight. She was able to have early with the titrated off her little bit however she needed to have it restarted at its previous level. Vitals/I&O's: Vital Signs Temp Pulse Resp BP Pulse Ox 98.8 F 71 15 102/68 95 01/10/19 08:00 01/10/19 08:30 01/10/19 08:30 01/10/19 08:30 01/10/19 08:30 Oxygen Flow Rate (L/min) 2 Oxygen Delivery Method Room Air Weight: 200 lb 9.93 oz Body Mass Index (BMI) 31.4 Intake and Output for Last 24 Hours 01/08/19 01/09/19 01/10/19 23:59 23:59 23:59 Intake Total 2973.2 / 2973.2 Output Total 300 / 300 Balance 2673.2 / 2673.2 General: Alert, Oriented x3, Cooperative, No apparent distress HEENT: Atraumatic, PERRLA, EOMI, Normocephalic Oral: Moist Mucosa Neck: Supple, No JVD Lungs: Normal air movement, Diminished, Rhonchi, Wheezes Cardiovascular: Regular rate, Regular Rhythm, Normal S1, Normal S2, No murmurs Abdomen: Soft, Non Tender, Non-Distended, No Hepato-splenomegaly Extremities: No edema, Capillary Refill Less than 3 Seconds Skin: No rashes, No breakdown Neurological: Neuro grossly intact, Sensory exam intact to light touch and pain Psych/Mental Status: Normal Affect, Appropriate Microbiology Past 72 Hours 01/09/19 17:55 Urine, Clean Catch Streptococcus pneumoniae Antigen (M - Final 01/09/19 17:55 Urine, Clean Catch Legionella Antigen - Final Laboratory Results 01/09/19 16:25: WBC 20.6 H, RBC 4.14 L, Hgb 11.8 L, Hct 35.6 L, MCV 86.0, MCH 28.5, MCHC 33.1, RDW Std Deviation 43.8, RDW Coeff of Robyn 14.2, Plt Count 256, MPV 10.5, Immature Gran % (Auto) 0.900, Neut % (Auto) 81.6 H, Lymph % (Auto) 11.9 L, [place] % (Auto) 4.1, Eos % (Auto) 1.4, Baso % (Auto) 0.1, Absolute Neuts (auto) 16.8 H, Absolute Lymphs (auto) 2.46, Nucleated RBC % 0 01/09/19 16:25: Sodium 135 L, Potassium 3.2 L, Chloride 101, Carbon Dioxide 26.0, Anion Gap 8, BUN 38 H, Creatinine 2.80 H, Estim Creat Clear Calc 19.75, Est GFR (MDRD) Af Amer 22 L, Est GFR (MDRD) Non-Af 18 L, BUN/Creatinine Ratio 13.6, Glucose 123 H, Calcium 8.6, Troponin I < 0.015 01/09/19 16:25: Ethyl Alcohol < 3.0 01/09/19 17:05: Lactic Acid 1.2 01/09/19 17:55: Urine Color Yellow, Urine Clarity Clear, Urine pH 6.0, Ur Specific [place] 1.010, Urine Protein 30 H, Urine Glucose (UA) Normal, Urine Ketones 5 H, Urine Occult Blood 250 H, Urine Nitrite Negative, Urine Bilirubin Negative, Urine Urobilinogen Normal, Ur Leukocyte Esterase 25 H, Urine RBC 0-5 SEEN, Urine WBC 0-5 SEEN, Ur Squamous Epith Cells 0-5 SEEN, Urine Bacteria 0 SEEN, Hyaline Casts 5-10 SEEN, Urine Mucus 0 SEEN 01/09/19 22:10: Troponin I < 0.015 01/09/19 22:10: TSH 0.07 L 01/10/19 02:00: Troponin I < 0.015 01/10/19 05:20: Sodium 145, Potassium 3.6, Chloride 115 H, Carbon Dioxide 25.0, Anion Gap 5, BUN 20 H, Creatinine 1.13 H, Estim Creat Clear Calc 48.94, Est GFR (MDRD) Af Amer 63, Est GFR (MDRD) Non-Af 52 L, BUN/Creatinine Ratio 17.7, Glucose 149 H, Calcium 7.9 L 01/10/19 05:20: WBC 15.8 H, RBC 3.93 L, Hgb 11.2 L, Hct 33.7 L, MCV 85.8, MCH 28.5, MCHC 33.2, RDW Std Deviation 44.0 H, RDW Coeff of Robyn 14.0, Plt Count 270, MPV 10.4, Immature Gran % (Auto) 0.800, Neut % (Auto) 72.8 H, Lymph % (Auto) 21.0, [place] % (Auto) 3.7, Eos % (Auto) 1.4, Baso % (Auto) 0.3, Absolute Neuts (auto) 11.5 H, Absolute Lymphs (auto) 3.31, Nucleated RBC % 0 01/10/19 05:20: Free T4 1.45 01/10/19 06:50: MRSA (PCR) Negative Current Medications Albuterol Sulfate (Ventolin Aerosols) 2.5 mg INHALATION Q6HWA.RT [facility] Last Admin: 01/10/19 07:28 Dose: 2.5 mg Documented by: Budesonide (Pulmicort Aerosol) 0.5 mg INHALATION Q12H.RT [facility] Last Admin: 01/10/19 07:28 Dose: 0.5 mg Documented by: Dextrose (D50w Syringe) 0 gm IV X1 PRN; Protocol PRN Reason: Hypoglycemia Duloxetine HCl (Cymbalta) 120 mg PO DAILY [facility] Enoxaparin Sodium (Lovenox) 30 mg SC DAILY@1000 [facility] Glucagon () 1 mg IM .X1 PRN PRN Reason: Hypoglycemia Sodium Chloride () 250 mls @ 15 mls/hr IV .[id number] PRN PRN Reason: SALINE FLUSH Vancomycin IV Pharmacy to Dose (1 ea/ Sodium Chloride) 500 mls @ 250 mls/hr IV X1 PRN; Protocol PRN Reason: Rx to Dose Norepinephrine Bitartrate 8 mg (/ Sodium Chloride) 250 mls @ 9.375 mls/hr CONT INF .[id number] [facility] Last Admin: 01/10/19 04:11 Dose: Not Given Documented by: Piperacillin Sod/Tazobactam (Sod 3.375 gm/ Sodium Chloride) 50 mls @ 12.5 mls/hr IV Q8 [facility] Last Admin: 01/10/19 08:59 Dose: 12.5 mls/hr Documented by: Vancomycin HCl (Vancomycin) 1,000 mg in 200 mls @ 200 mls/hr IV Q12H [facility] Levothyroxine Sodium (Synthroid) 137 mcg PO DAILY@0600 [facility] Last Admin: 01/10/19 07:09 Dose: 137 mcg Documented by: Ondansetron HCl (Zofran) 4 mg IV Q8H PRN PRN PRN Reason: NAUSEA/VOMITING Oxycodone HCl (Oxyir) 20 mg PO TID [facility] Last Admin: 01/10/19 07:10 Dose: 20 mg Documented by: Pantoprazole Sodium (Protonix) 40 mg PO BID [facility] Pravastatin Sodium (Pravachol) 40 mg PO QHS [facility] Last Admin: 01/09/19 23:05 Dose: 40 mg Documented by: Sodium Chloride () 10 - 40 ml IV UD PRN PRN Reason: SALINE FLUSH Medical Necessity - Tobacco Use Smoking Status: Current every day smoker Tobacco Use: Cigarettes Assessment/Plan All Active Problems (Last Reviewed 08/06/17 @ 11:38 by Ysabel Noonan) Decubitus ulcer of left hip (Acute) Decubitus ulcer of right hip (Acute) 1. Septic shock secondary to RLL pneumonia/acute hypoxic respiratory failure secondary to pneumonia/acute metabolic encephalopathy secondary to narcotics/GABBIE -Her right lower lobe pneumonia is likely secondary to a gram-positive organism -Continue with Zosyn and vancomycin -Initially was treated with Rocephin and azithromycin -Her altered mental status has resolved as has her hypoxic respiratory failure -She is continuing to need pressor support at the moment therefore we will continue to monitor in the ICU -Her acute kidney injury is also resolved, initially her creatinine was 2.8, and is now 1.13 2. Chronic back pain from spinal muscular atrophy -She is on tizanidine, amphetamine salts and Percocet -She was given Narcan by the squad when she arrived because she had taken Percocet earlier in the day which she is normally on -Her altered mental status and hypoxic respiratory failure was likely secondary to the pneumonia so we will continue with her home pain medications and monitor closely 3. HTN/HLD -For blood pressure she is on Norvasc, lisinopril, hydrochlorothiazide, and Aldactone -We will hold all of these medications while she is on IV pressors in the ICU -Continue with pravastatin 4. GERD -Stable -Continue with PPI DVT: Lovenox Code Visit Inpatient E&M: 34390 Subs Hosp L2
[2019-01-10] MEDS: Enoxaparin 30 MG/0.3 ML Syringe SC (11:03)
[2019-01-10] MEDS: DULoxetine Hcl 60 MG Capsule 120 MG PO (11:03)
[2019-01-10] MEDS: Pantoprazole Sodium 40 MG Tablet PO ×2 (11:03→21:06)
[2019-01-10] MEDS: Pregabalin 50 MG Capsule 200 MG PO ×2 (14:09→21:06)
[2019-01-10] MEDS: Vancomycin IV 1,000 MG/200 ML BAG 200 MG IV (17:53)
[2019-01-10] MEDS: Pravastatin 40 MG Tablet PO (21:06)
[2019-01-11] VITALS (36 sets, daily range): BP systolic 87–111; BP diastolic 47–81; PULSE 29–74; RESP 11–20; TEMP 36.1–36.8; O2SAT 93–99
[2019-01-11 04:18] LABS: Absolute Lymphocyte Count 2.57 X10^3/uL (0.83-4.51); Absolute Neutrophil Count 6.7 X10^3/uL (2.0-7.7); Basophil# 0.04 X10^3/uL; Basophil% 0.4 % (0-1); Eosinophil# 0.19 X10^3/uL; Eosinophils% 1.9 % (0-5); Hematocrit 31.2 % (37-47); Lymphocyte # 2.57 X10^3/ul (4.0); Lymphocyte % 25.5 % (19-41); Mean Corp Hgb Conc 32.1 g/dL (32-36); Mean Corpuscular Hgb 27.5 pg (27.0-32.0); Mean Platelet Vol. 10.9 fl (6.2-12.0); Monocyte# 0.57 X10^3/uL; Monocyte% 5.7 % (0-10); NRBC Flagged by Analyzer 0 % (0-5); Neutrophil # 6.65 X10^3/uL (2.7-7.7); Neutrophil % 65.9 % (47-70); Platelet Count 221 K/mm3 (150-450); RBC Distribution Width CV 14.4 % (11.6-14.6); RBC Distribution Width SD 44.6 fl (35.1-43.9); Red Blood Count 3.63 M/mm3 (4.2-5.4); White Blood Count 10.1 K/mm3 (4.4-11.0)
[2019-01-11] MEDS: Levothyroxine 137 MCG Tablet PO (05:04)
[2019-01-11] MEDS: Pregabalin 50 MG Capsule 200 MG PO (05:04)
[2019-01-11] MEDS: Vancomycin IV 1,000 MG/200 ML BAG 200 MG IV (05:04)
[2019-01-11 05:53] LABS: Anion Gap 6 (5-15); BUN 9 mg/dL (7-18); BUN/Creat Ratio 13.7 RATIO (10-20); Calcium,Total 8.1 mg/dL (8.5-10.1); Chloride 110 mmol/L (98-107); Creatinine, Serum 0.66 mg/dL (0.55-1.02); EST Glomerular Filtration Rate 97 mL/min (>60); Est Glom Filt Rate - Afr Amer 117 mL/min (>60); Glucose 118 mg/dL (74-106); Magnesium 1.8 mg/dL (1.6-2.6); Phosphorus 2.8 mg/dL (2.5-4.9); Potassium 3.6 mmol/L (3.5-5.1); Sodium Level 144 mmol/L (136-145)
[2019-01-11] MEDS: oxyCODONE 5 MG Tablet 20 MG PO ×3 (06:04→22:14)
[2019-01-11] MEDS: Albuterol 2.5 MG/3 ML VIAL.NEB. INHALATION ×3 (07:01→19:22)
[2019-01-11] MEDS: Budesonide Respules 0.5 MG/2 ML AMPUL.NEB. INHALATION ×2 (07:01→19:22)
--- NOTE | 2019-01-11 07:02 | PN_ITS ---
Subjective: Patient did well overnight. No acute issues were reported. Patient did tolerate BiPAP overnight, but reportedly had stated that the pressure was getting to her earlier this morning. Patient is currently on room air. Patient has been off pressors since yesterday, but pressures have been marginal. No boluses of been required. In retrospect, patient is reporting some nocturnal emesis versus GERD, but is unclear if she had any aspiration event. General: Alert, Oriented x3, Cooperative, No apparent distress, Well developed, Well nourished, - - No conversational dyspnea. HEENT: Atraumatic, PERRLA, EOMI, Normocephalic, - - No scleral icterus or injection noted. Oral: Moist Mucosa, No Gingival or Mucosal Lesions/ Ulcerations Neck: Supple, No JVD, No Nodes, Trachea Midline Lungs: No rhonchi, No wheeze, No rales, Diminished - Right base, - - Symmetric expansion. No dullness to percussion. Cardiovascular: Regular rate, Regular Rhythm, Normal S1, Normal S2, No murmurs, No rub noted, No Gallop Abdomen: Bowel Sounds Present, Soft, Non Tender, Non-Distended, Obese Extremities: No clubbing, No cyanosis, No edema Skin: No rashes, No breakdown Musculoskeletal: No Tenderness to Palpation of Joints or Extremities Lymphatic: No Cervical, Supraclavicular, or Inguinal Adenopathy Neurological: Cranial nerves II-XII grossly intact, Neuro grossly intact, Motor Exam 5/5 strength throughout Psych/Mental Status: Alert and oriented to time, place, person, mood and affect Vital Signs Temp Pulse Resp BP Pulse Ox 36.2 C L 49 L 15 95/58 L 93 01/11/19 04:00 01/11/19 06:00 01/11/19 06:00 01/11/19 06:00 01/11/19 06:00 Oxygen Flow Rate (L/min) 2 Oxygen Delivery Method Room Air Weight: 91.2 kg Body Mass Index (BMI) 31.4 Intake and Output for Last 24 Hours 01/09/19 01/10/19 01/11/19 23:59 23:59 23:59 Intake Total 6169.2 / 6169.2 261 / 261 Output Total 2300 / 2300 325 / 325 Balance 3869.2 / 3869.2 -64 / -64 Labs (Last 48 Hours) 01/09/19 01/09/19 01/09/19 16:25 16:25 16:25 WBC 20.6 H RBC 4.14 L Hgb 11.8 L Hct 35.6 L MCV 86.0 MCH 28.5 MCHC 33.1 RDW Std Deviation 43.8 RDW Coeff of Robyn 14.2 Plt Count 256 MPV 10.5 Immature Gran % (Auto) 0.900 Neut % (Auto) 81.6 H Lymph % (Auto) 11.9 L Catron % (Auto) 4.1 Eos % (Auto) 1.4 Baso % (Auto) 0.1 Absolute Neuts (auto) 16.8 H Absolute Lymphs (auto) 2.46 Nucleated RBC % 0 Sodium 135 L Potassium 3.2 L Chloride 101 Carbon Dioxide 26.0 Anion Gap 8 BUN 38 H Creatinine 2.80 H Estim Creat Clear Calc 19.75 Est GFR (MDRD) Af Amer 22 L Est GFR (MDRD) Non-Af 18 L BUN/Creatinine Ratio 13.6 Glucose 123 H Lactic Acid Calcium 8.6 Phosphorus Magnesium Troponin I < 0.015 TSH Free T4 Urine Color Urine Clarity Urine pH Ur Specific [place] Urine Protein Urine Glucose (UA) Urine Ketones Urine Occult Blood Urine Nitrite Urine Bilirubin Urine Urobilinogen Ur Leukocyte Esterase Urine RBC Urine WBC Ur Squamous Epith Cells Urine Bacteria Hyaline Casts Urine Mucus Ethyl Alcohol < 3.0 MRSA (PCR) 01/09/19 01/09/19 01/09/19 17:05 17:55 22:10 WBC RBC Hgb Hct MCV MCH MCHC RDW Std Deviation RDW Coeff of Robyn Plt Count MPV Immature Gran % (Auto) Neut % (Auto) Lymph % (Auto) Catron % (Auto) Eos % (Auto) Baso % (Auto) Absolute Neuts (auto) Absolute Lymphs (auto) Nucleated RBC % Sodium Potassium Chloride Carbon Dioxide Anion Gap BUN Creatinine Estim Creat Clear Calc Est GFR (MDRD) Af Amer Est GFR (MDRD) Non-Af BUN/Creatinine Ratio Glucose Lactic Acid 1.2 Calcium Phosphorus Magnesium Troponin I < 0.015 TSH Free T4 Urine Color Yellow Urine Clarity Clear Urine pH 6.0 Ur Specific [place] 1.010 Urine Protein 30 H Urine Glucose (UA) Normal Urine Ketones 5 H Urine Occult Blood 250 H Urine Nitrite Negative Urine Bilirubin Negative Urine Urobilinogen Normal Ur Leukocyte Esterase 25 H Urine RBC 0-5 SEEN Urine WBC 0-5 SEEN Ur Squamous Epith Cells 0-5 SEEN Urine Bacteria 0 SEEN Hyaline Casts 5-10 SEEN Urine Mucus 0 SEEN Ethyl Alcohol MRSA (PCR) 01/09/19 01/10/19 01/10/19 22:10 02:00 05:20 WBC RBC Hgb Hct MCV MCH MCHC RDW Std Deviation RDW Coeff of Robyn Plt Count MPV Immature Gran % (Auto) Neut % (Auto) Lymph % (Auto) Catron % (Auto) Eos % (Auto) Baso % (Auto) Absolute Neuts (auto) Absolute Lymphs (auto) Nucleated RBC % Sodium 145 Potassium 3.6 Chloride 115 H Carbon Dioxide 25.0 Anion Gap 5 BUN 20 H Creatinine 1.13 H Estim Creat Clear Calc 48.94 Est GFR (MDRD) Af Amer 63 Est GFR (MDRD) Non-Af 52 L BUN/Creatinine Ratio 17.7 Glucose 149 H Lactic Acid Calcium 7.9 L Phosphorus Magnesium Troponin I < 0.015 TSH 0.07 L Free T4 Urine Color Urine Clarity Urine pH Ur Specific [place] Urine Protein Urine Glucose (UA) Urine Ketones Urine Occult Blood Urine Nitrite Urine Bilirubin Urine Urobilinogen Ur Leukocyte Esterase Urine RBC Urine WBC Ur Squamous Epith Cells Urine Bacteria Hyaline Casts Urine Mucus Ethyl Alcohol MRSA (PCR) 01/10/19 01/10/19 01/10/19 05:20 05:20 06:50 WBC 15.8 H RBC 3.93 L Hgb 11.2 L Hct 33.7 L MCV 85.8 MCH 28.5 MCHC 33.2 RDW Std Deviation 44.0 H RDW Coeff of Robyn 14.0 Plt Count 270 MPV 10.4 Immature Gran % (Auto) 0.800 Neut % (Auto) 72.8 H Lymph % (Auto) 21.0 Catron % (Auto) 3.7 Eos % (Auto) 1.4 Baso % (Auto) 0.3 Absolute Neuts (auto) 11.5 H Absolute Lymphs (auto) 3.31 Nucleated RBC % 0 Sodium Potassium Chloride Carbon Dioxide Anion Gap BUN Creatinine Estim Creat Clear Calc Est GFR (MDRD) Af Amer Est GFR (MDRD) Non-Af BUN/Creatinine Ratio Glucose Lactic Acid Calcium Phosphorus Magnesium Troponin I TSH Free T4 1.45 Urine Color Urine Clarity Urine pH Ur Specific [place] Urine Protein Urine Glucose (UA) Urine Ketones Urine Occult Blood Urine Nitrite Urine Bilirubin Urine Urobilinogen Ur Leukocyte Esterase Urine RBC Urine WBC Ur Squamous Epith Cells Urine Bacteria Hyaline Casts Urine Mucus Ethyl Alcohol MRSA (PCR) Negative 01/11/19 01/11/19 03:55 03:55 WBC 10.1 RBC 3.63 L Hgb 10.0 L Hct 31.2 L MCV 86.0 MCH 27.5 MCHC 32.1 RDW Std Deviation 44.6 H RDW Coeff of Robyn 14.4 Plt Count 221 MPV 10.9 Immature Gran % (Auto) 0.600 Neut % (Auto) 65.9 Lymph % (Auto) 25.5 Catron % (Auto) 5.7 Eos % (Auto) 1.9 Baso % (Auto) 0.4 Absolute Neuts (auto) 6.7 Absolute Lymphs (auto) 2.57 Nucleated RBC % 0 Sodium 144 Potassium 3.6 Chloride 110 H Carbon Dioxide 28.0 Anion Gap 6 BUN 9 Creatinine 0.66 Estim Creat Clear Calc 83.80 Est GFR (MDRD) Af Amer 117 Est GFR (MDRD) Non-Af 97 BUN/Creatinine Ratio 13.7 Glucose 118 H Lactic Acid Calcium 8.1 L Phosphorus 2.8 Magnesium 1.8 Troponin I TSH Free T4 Urine Color Urine Clarity Urine pH Ur Specific [place] Urine Protein Urine Glucose (UA) Urine Ketones Urine Occult Blood Urine Nitrite Urine Bilirubin Urine Urobilinogen Ur Leukocyte Esterase Urine RBC Urine WBC Ur Squamous Epith Cells Urine Bacteria Hyaline Casts Urine Mucus Ethyl Alcohol MRSA (PCR) Microbiology 01/10/19 09:10 Sputum, Expectorated/Coughed Gram Stain - Final 01/09/19 17:55 Urine, Clean Catch Streptococcus pneumoniae Antigen (M - Final 01/09/19 17:55 Urine, Clean Catch Legionella Antigen - Final Medical Necessity - Tobacco Use Smoking Status: Current every day smoker Tobacco Use: Cigarettes Assessment/Plan All Active Problems (Last Reviewed 08/06/17 @ 11:38 by Ysabel Noonan) Decubitus ulcer of left hip (Acute) Decubitus ulcer of right hip (Acute) RECOMMENDATIONS: 1. Increase activity as tolerated 2. Continue Zosyn pending culture results 3. Discontinue vancomycin 4. Hemodynamically stable on room air. Okay to transfer from the intensive care unit from my perspective IMPRESSIONS: 1. Septic shock secondary to community-acquired versus aspiration pneumonia Patient has responded well to vasopressor support. This was discontinued yesterday. Patient does have a right lower lobe infiltrate. Patient had repor talib some possible nocturnal GERD type symptoms, so unclear if this is an aspiration event. MRSA screen was negative, so vancomycin can be discontinued. Blood pressures have remained appropriate. 2. Acute kidney injury Resolved. Likely prerenal in etiology. The patient's creatinine has responded favorably to IV volume resuscitation. Urine output is currently appr opriate. We will continue to monitor. There is no indication for renal replacement therapy at this time. 3. Hypokalemia Resolved. Electrolyte repletion as ordered. 4. Personal history of asthma and obstructive sleep apnea Continue inhaled corticosteroid per outpatient regimen along with as needed bronchodilators. The patient readily admits to noncompliance with the use of nocturnal Pap therapy, but she was previously identified as having severe obstructive sleep apnea in 2015. This should be encouraged on discharge. Patient will need a repeat titration study. 5. Hypothyroidism The patient reports compliance with her outpatient levothyroxine, which will be continued. TSH levels noted to be low at 0.07. Will check follow-up free T4 level. 6. ADHD/hypertension/depression/GERD/hyperlipidemia/chronic pain syndrome Complicates care, management, recovery and prognosis. Continue home medications as indicated, with the exception of her antihypertensives, which will continue to be on hold. The patient will require physical therapy evaluation. Code Visit Inpatient E&M: 64790 [facility] Hosp L3
--- NOTE | 2019-01-11 08:12 | PN_ITS ---
Subjective: Feeling a little bit better today, she is been off pressors since yesterday at 6 PM. Vitals/I&O's: Vital Signs Temp Pulse Resp BP Pulse Ox 97 F L 42 L 11 L 93/48 L 94 01/11/19 08:00 01/11/19 08:00 01/11/19 08:00 01/11/19 08:00 01/11/19 08:00 Oxygen Flow Rate (L/min) 2 Oxygen Delivery Method Room Air Weight: 201 lb 0.985 oz Body Mass Index (BMI) 31.4 Intake and Output for Last 24 Hours 01/09/19 01/10/19 01/11/19 23:59 23:59 23:59 Intake Total 6169.2 / 6169.2 261 / 261 Output Total 2300 / 2300 325 / 325 Balance 3869.2 / 3869.2 -64 / -64 General: Alert, Oriented x3, Cooperative, No apparent distress HEENT: Atraumatic, PERRLA, EOMI, Normocephalic Oral: Moist Mucosa Neck: Supple, No JVD Lungs: Normal air movement, Diminished, no rhonchi or wheezes Cardiovascular: Regular rate, Regular Rhythm, Normal S1, Normal S2, No murmurs Abdomen: Soft, Non Tender, Non-Distended, No Hepato-splenomegaly Extremities: No edema, Capillary Refill Less than 3 Seconds Skin: No rashes, No breakdown Neurological: Neuro grossly intact, Sensory exam intact to light touch and pain Psych/Mental Status: Normal Affect, Appropriate Microbiology Past 72 Hours 01/10/19 09:10 Sputum, Expectorated/Coughed Gram Stain - Final 01/09/19 17:55 Urine, Clean Catch Streptococcus pneumoniae Antigen (M - Final 01/09/19 17:55 Urine, Clean Catch Legionella Antigen - Final Laboratory Results 01/10/19 06:50: MRSA (PCR) Negative 01/11/19 03:55: WBC 10.1, RBC 3.63 L, Hgb 10.0 L, Hct 31.2 L, MCV 86.0, MCH 27.5, MCHC 32.1, RDW Std Deviation 44.6 H, RDW Coeff of Robyn 14.4, Plt Count 221, MPV 10.9, Immature Gran % (Auto) 0.600, Neut % (Auto) 65.9, Lymph % (Auto) 25.5, Early % (Auto) 5.7, Eos % (Auto) 1.9, Baso % (Auto) 0.4, Absolute Neuts (auto) 6.7, Absolute Lymphs (auto) 2.57, Nucleated RBC % 0 01/11/19 03:55: Sodium 144, Potassium 3.6, Chloride 110 H, Carbon Dioxide 28.0, Anion Gap 6, BUN 9, Creatinine 0.66, Estim Creat Clear Calc 83.80, Est GFR (MDRD) Af Amer 117, Est GFR (MDRD) Non-Af 97, BUN/Creatinine Ratio 13.7, Glucose 118 H, Calcium 8.1 L, Phosphorus 2.8, Magnesium 1.8 Current Medications Albuterol Sulfate (Ventolin Aerosols) 2.5 mg INHALATION Q6HWA.RT [facility] Last Admin: 01/11/19 07:01 Dose: 2.5 mg Documented by: Budesonide (Pulmicort Aerosol) 0.5 mg INHALATION Q12H.RT [facility] Last Admin: 01/11/19 07:01 Dose: 0.5 mg Documented by: Dextrose (D50w Syringe) 0 gm IV X1 PRN; Protocol PRN Reason: Hypoglycemia Duloxetine HCl (Cymbalta) 120 mg PO DAILY [facility] Last Admin: 01/10/19 11:03 Dose: 120 mg Documented by: Enoxaparin Sodium (Lovenox) 30 mg SC DAILY@1000 [facility] Last Admin: 01/10/19 11:03 Dose: 30 mg Documented by: Glucagon () 1 mg IM .X1 PRN PRN Reason: Hypoglycemia Heparin Sodium (Beef Lung) () 50 units IV UD PRN PRN Reason: HEPARIN FLUSH Sodium Chloride () 250 mls @ 15 mls/hr IV .[id number] PRN PRN Reason: SALINE FLUSH Piperacillin Sod/Tazobactam (Sod 3.375 gm/ Sodium Chloride) 50 mls @ 12.5 mls/hr IV Q8 [facility] Last Admin: 01/11/19 06:03 Dose: 12.5 mls/hr Documented by: Levothyroxine Sodium (Synthroid) 137 mcg PO DAILY@0600 [facility] Last Admin: 01/11/19 05:04 Dose: 137 mcg Documented by: Ondansetron HCl (Zofran) 4 mg IV Q8H PRN PRN PRN Reason: NAUSEA/VOMITING Oxycodone HCl (Oxyir) 20 mg PO TID [facility] Last Admin: 01/11/19 06:04 Dose: 20 mg Documented by: Pantoprazole Sodium (Protonix) 40 mg PO BID [facility] Last Admin: 01/10/19 21:06 Dose: 40 mg Documented by: Pravastatin Sodium (Pravachol) 40 mg PO QHS [facility] Last Admin: 01/10/19 21:06 Dose: 40 mg Documented by: Pregabalin (Lyrica) 200 mg PO TID [facility] Last Admin: 01/11/19 05:04 Dose: 200 mg Documented by: Sodium Chloride () 10 - 40 ml IV UD PRN PRN Reason: SALINE FLUSH Sodium Chloride () 10 - 40 ml IV UD PRN PRN Reason: PICC FLUSH Medical Necessity - Tobacco Use Smoking Status: Current every day smoker Tobacco Use: Cigarettes Assessment/Plan All Active Problems (Last Reviewed 08/06/17 @ 11:38 by Ysabel Noonan) Decubitus ulcer of left hip (Acute) Decubitus ulcer of right hip (Acute) 1. Septic shock secondary to RLL pneumonia/acute hypoxic respiratory failure secondary to pneumonia/acute metabolic encephalopathy secondary to narcotics/GABBIE -Her right lower lobe pneumonia is likely secondary to a gram-positive organism -Continue with Zosyn and will discontinue vancomycin -Initially was treated with Rocephin and azithromycin -Her altered mental status has resolved as has her hypoxic respiratory failure -She is continuing to need pressor support at the moment therefore we will continue to monitor in the ICU -Her acute kidney injury is also resolved, initially her creatinine was 2.8, and is now 1.13 2. Chronic back pain from spinal muscular atrophy -She is on tizanidine, amphetamine salts and Percocet -She was given Narcan by the squad when she arrived because she had taken Percocet earlier in the day which she is normally on -Her altered mental status and hypoxic respiratory failure was likely secondary to the pneumonia so we will continue with her home pain medications and monitor closely 3. HTN/HLD -For blood pressure she is on Norvasc, lisinopril, hydrochlorothiazide, and Aldactone -We will hold all of these medications while she is on IV pressors in the ICU -Continue with pravastatin 4. GERD -Stable -Continue with PPI DVT: Lovenox Code Visit Inpatient E&M: 82127 [facility] Hosp L2
[2019-01-11] MEDS: DULoxetine Hcl 60 MG Capsule 120 MG PO (09:23)
[2019-01-11] MEDS: Pantoprazole Sodium 40 MG Tablet PO ×2 (09:23→21:08)
[2019-01-11] MEDS: Enoxaparin 30 MG/0.3 ML Syringe SC (09:23)
--- NOTE | 2019-01-11 09:31 | CASEMGMT ---
RN CM Assessment Presentation: Septic shock secondary to RLL pneumonia, hypoxic resp failure. Intro role of CM and purpose of RN CM assessment. Pt is awake, alert and able to participate in assessment. Demographics, PCP and Pharmacy verified.Pt states she has been having increasing difficulty at home related to her spine issues. Pt states I walk like a hunched over old man. States frequent falls due to poor visibility when walking hunched over which has caused bruising in her spine area. RN CM discussed if pt has had SNF rehab or Home Health. Pt stated her PCP was going to set up HHS but this has not been done. Pt states she is agreeable to SNF if recommended. Pt's daughter lives in [facility] and she has 3 other children that all live out of state. Pt does not have Living will or DPOA. Discussed with pt and she would like to complete prior to dc. PCP: Dr.Mark Aguirre Specialists: Neurosurgeon @ [facility] Preferred Pharmacy: [facility] Insurance: [employer] Medicare PPO Prescription Benefit: yes LNOK: Daughter Sendy Sahni Living Arrangements: Lives alone in home. Pt states having increasing difficulty and falls. DME: cane, walker, raised toilet seat, wheelchair, Cpap HHC/SNF: none presently, pt is agreeable to Home Health or SNF if recommended. Patient DC goals: SNF SW Consult: Advanced Directives and possible SNF referral. KENIA Wilson updated. DC PLAN: undetermined. PT/OT evaluations pending. Thang SIERRA RN ACM
--- NOTE | 2019-01-11 14:47 | CHAPLAIN ---
Type of Pastoral Visit _x__ Initial Visit ___ Follow-up Visit ___ On-call Visit ___ General Patient Visit ___ Spiritual Assessment ___ Family Conference ___ Bereavement ___ Rapid Response ___ Code Blue ___ Other (describe below) Pastoral Care Referral From _x__ Patient ___ Family ___ Nurse ___ Physician ___ Hydrogeology Professor ___ Ornamental Metal Worker ___ Other (describe below) Sacrament/Intervention _x__ Active listening ___ Anointing ___ Protestant _x__ Bereavement ___ Communion _x__ Flor exploration ___ _x__ Life review _x__ Prayer ___ Reconciliation ___ Sacrament of Sick _x__ Supportive presence ___ Wedding ___ Other (describe below) Pastoral Comments patient and a good friend are in room and both talk about the last years of pt and 

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
[2019-01-11] MEDS: Pregabalin 50 MG Capsule 150 MG PO (21:08)
[2019-01-11] MEDS: Pravastatin 40 MG Tablet PO (21:08)
[2019-01-12] VITALS (13 sets, daily range): BP systolic 95–128; BP diastolic 52–90; PULSE 44–69; RESP 12–18; TEMP 36.1–36.7; O2SAT 91–98
[2019-01-12 04:49] LABS: Absolute Lymphocyte Count 2.59 X10^3/uL (0.83-4.51); Absolute Neutrophil Count 3.9 X10^3/uL (2.0-7.7); Basophil# 0.04 X10^3/uL; Basophil% 0.5 % (0-1); Eosinophil# 0.14 X10^3/uL; Eosinophils% 1.9 % (0-5); Hematocrit 33.4 % (37-47); Hemoglobin 10.7 g/dL (12.0-15.0); Lymphocyte # 2.59 X10^3/ul (4.0); Mean Corpuscular Hgb 27.4 pg (27.0-32.0); Mean Corpuscular Volume 85.6 fL (81-99); Mean Platelet Vol. 10.5 fl (6.2-12.0); Monocyte# 0.66 X10^3/uL; Monocyte% 8.9 % (0-10); NRBC Flagged by Analyzer 0 % (0-5); Neutrophil # 3.94 X10^3/uL (2.7-7.7); Neutrophil % 53.3 % (47-70); Platelet Count 237 K/mm3 (150-450); RBC Distribution Width CV 14.1 % (11.6-14.6); RBC Distribution Width SD 43.8 fl (35.1-43.9); White Blood Count 7.4 K/mm3 (4.4-11.0)
[2019-01-12] MEDS: Levothyroxine 137 MCG Tablet PO (05:12)
[2019-01-12] MEDS: oxyCODONE 5 MG Tablet 20 MG PO (05:12)
[2019-01-12 05:21] LABS: Anion Gap 5 (5-15); BUN 7 mg/dL (7-18); BUN/Creat Ratio 9.3 RATIO (10-20); Calcium,Total 8.5 mg/dL (8.5-10.1); Chloride 111 mmol/L (98-107); Creatinine, Serum 0.75 mg/dL (0.55-1.02); EST Glomerular Filtration Rate 83 mL/min (>60); Est Glom Filt Rate - Afr Amer 101 mL/min (>60); Estimated Creatinine Clearance 73.74 ml/min; Glucose 115 mg/dL (74-106); Magnesium 1.8 mg/dL (1.6-2.6); Phosphorus 3.5 mg/dL (2.5-4.9); Potassium 3.8 mmol/L (3.5-5.1); Sodium Level 145 mmol/L (136-145)
--- NOTE | 2019-01-12 06:55 | PCM.PN.INT ---
Subjective: Patient did okay overnight. Patient did report she did not sleep much overnight and she attributes this to the discontinuation of Ambien. Patient did have some recurrence of bradycardia, but remained hemodynamically stable. Patient has been placed on BiPAP therapy and was tolerating it on my evaluation. No fevers have been reported overnight. Patient was on room air prior to BiPAP. General: Alert, Oriented x3, Cooperative, No apparent distress, Well developed, Well nourished, - - Obese. No conversational dyspnea. HEENT: Atraumatic, PERRLA, EOMI, Normocephalic, - Oral: Moist Mucosa - No scleral icterus or injection noted., No Gingival or Mucosal Lesions/ Ulcerations Neck: Supple, No JVD, No Nodes, Trachea Midline Lungs: No rhonchi, No wheeze, No rales, Diminished, - - Symmetric expansion. No dullness to percussion. Cardiovascular: Normal S1, Normal S2, No murmurs, Bradycardic, No rub noted, No Gallop, - - Sinus bradycardia noted on telemetry Abdomen: Bowel Sounds Present, Soft, Non Tender, Non-Distended, Obese Extremities: No clubbing, No cyanosis, No edema, Capillary Refill Less than 3 Seconds Skin: No rashes, No breakdown Musculoskeletal: No Tenderness to Palpation of Joints or Extremities Lymphatic: No Cervical, Supraclavicular, or Inguinal Adenopathy Neurological: Cranial nerves II-XII grossly intact, Neuro grossly intact, Motor Exam 5/5 strength throughout Psych/Mental Status: Alert and oriented to time, place, person, mood and affect Vital Signs Temp Pulse Resp BP Pulse Ox 36.6 C 47 L 18 122/64 H 97 01/12/19 04:00 01/12/19 06:00 01/12/19 06:00 01/12/19 06:00 01/12/19 06:00 Oxygen Flow Rate (L/min) 2 Oxygen Delivery Method Room Air Weight: 91.2 kg Body Mass Index (BMI) 31.4 Intake and Output for Last 24 Hours 01/10/19 01/11/19 01/12/19 23:59 23:59 23:59 Intake Total 6169.2 / 6169.2 1301.2 / 1301.2 329 / 329 Output Total 2300 / 2300 2024 / 2024 300 / 300 Balance 3869.2 / 3869.2 -723.8 / -723.8 Labs (Last 48 Hours) 01/10/19 01/11/19 01/11/19 06:50 03:55 03:55 WBC 10.1 RBC 3.63 L Hgb 10.0 L Hct 31.2 L MCV 86.0 MCH 27.5 MCHC 32.1 RDW Std Deviation 44.6 H RDW Coeff of Robyn 14.4 Plt Count 221 MPV 10.9 Immature Gran % (Auto) 0.600 Neut % (Auto) 65.9 Lymph % (Auto) 25.5 [place] % (Auto) 5.7 Eos % (Auto) 1.9 Baso % (Auto) 0.4 Absolute Neuts (auto) 6.7 Absolute Lymphs (auto) 2.57 Nucleated RBC % 0 Sodium 144 Potassium 3.6 Chloride 110 H Carbon Dioxide 28.0 Anion Gap 6 BUN 9 Creatinine 0.66 Estim Creat Clear Calc 83.80 Est GFR (MDRD) Af Amer 117 Est GFR (MDRD) Non-Af 97 BUN/Creatinine Ratio 13.7 Glucose 118 H Calcium 8.1 L Phosphorus 2.8 Magnesium 1.8 MRSA (PCR) Negative 01/12/19 01/12/19 04:40 04:40 WBC 7.4 RBC 3.90 L Hgb 10.7 L Hct 33.4 L MCV 85.6 MCH 27.4 MCHC 32.0 RDW Std Deviation 43.8 RDW Coeff of Robyn 14.1 Plt Count 237 MPV 10.5 Immature Gran % (Auto) 0.400 Neut % (Auto) 53.3 Lymph % (Auto) 35.0 [place] % (Auto) 8.9 Eos % (Auto) 1.9 Baso % (Auto) 0.5 Absolute Neuts (auto) 3.9 Absolute Lymphs (auto) 2.59 Nucleated RBC % 0 Sodium 145 Potassium 3.8 Chloride 111 H Carbon Dioxide 29.0 Anion Gap 5 BUN 7 Creatinine 0.75 Estim Creat Clear Calc 73.74 Est GFR (MDRD) Af Amer 101 Est GFR (MDRD) Non-Af 83 BUN/Creatinine Ratio 9.3 L Glucose 115 H Calcium 8.5 Phosphorus 3.5 Magnesium 1.8 MRSA (PCR) Microbiology 01/10/19 09:10 Sputum, Expectorated/Coughed Gram Stain - Final 01/10/19 09:10 Sputum, Expectorated/Coughed Respiratory Culture - Preliminary Appears to be normal respiratory storm. Further studies to follow. Medical Necessity - Tobacco Use Smoking Status: Current every day smoker Tobacco Use: Cigarettes Assessment/Plan All Active Problems (Last Reviewed 08/06/17 @ 11:38 by Ysabel Noonan) Decubitus ulcer of left hip (Acute) Decubitus ulcer of right hip (Acute) RECOMMENDATIONS: 1. Okay to initiate melatonin therapy for insomnia 2. Okay to transition to p.o. antibiotics from my perspective 3. Defer to cardiology on bradycardia 4. Hemodynamically stable on room air. Okay to transfer from the intensive care unit from my perspective IMPRESSIONS: 1. Septic shock secondary to community-acquired versus aspiration pneumonia Patient has responded well to vasopressor support. This was discontinued yesterday. Patient does have a right lower lobe infiltrate. Patient had reported some possible nocturnal GERD type symptoms, so unclear if this is an aspiration event prior to hospitalization. MRSA screen was negative, so vancomycin was discontinued. Blood pressures have remained appropriate. Culture data is unremarkable at this time. If blood cultures come back negative today, okay to transition to p.o. antibiotics from my perspective 2. Acute kidney injury Resolved. Likely prerenal in etiology. The patient's creatinine has responded favorably to IV volume resuscitation. Urine output is currently appropriate. We will continue to monitor. There is no indication for renal replacement therapy at this time. 3. Hypokalemia Resolved. Electrolyte repletion as ordered. 4. Personal history of asthma and obstructive sleep apnea Continue inhaled corticosteroid per outpatient regimen along with as needed bronchodilators. The patient readily admits to noncompliance with the use of nocturnal Pap therapy, but she was previously identified as having severe obstructive sleep apnea in 2015. This should be encouraged on discharge. Patient will need a repeat titration study. 5. Hypothyroidism The patient reports compliance with her outpatient levothyroxine, which will be continued. TSH levels noted to be low at 0.07. Free T4 level was acceptable. These findings are consistent with euthyroid sick syndrome 6. ADHD/hypertension/depression/GERD/hyperlipidemia/chronic pain syndrome Complicates care, management, recovery and prognosis. Continue home medications as indicated, with the exception of her antihypertensives, which will continue to be on hold. The patient will require physical therapy evaluation. Code Visit Inpatient E&M: 12591 Subs Hosp L2
[2019-01-12] MEDS: Budesonide Respules 0.5 MG/2 ML AMPUL.NEB. INHALATION (07:03)
[2019-01-12] MEDS: Albuterol 2.5 MG/3 ML VIAL.NEB. INHALATION (07:03)
--- NOTE | 2019-01-12 07:39 | PN.CARD_ITS ---
Subjectve: Patient seen and evaluated. Appears to be doing much better at the moment. Objective: Vital Signs Temp Pulse Resp BP Pulse Ox 97.9 F 50 L 18 128/52 H 92 01/12/19 04:00 01/12/19 07:12 01/12/19 07:04 01/12/19 07:00 01/12/19 07:04 Oxygen Flow Rate (L/min) 2 Oxygen Delivery Method Room Air Weight: 201 lb 0.985 oz Body Mass Index (BMI) 31.4 Intake and Output for Last 24 Hours 01/10/19 01/11/19 01/12/19 23:59 23:59 23:59 Intake Total 6169.2 / 6169.2 1301.2 / 1301.2 329 / 329 Output Total 2300 / 2300 2024 / 2024 300 / 300 Balance 3869.2 / 3869.2 -723.8 / -723.8 General: Awake, Alert, Oriented x 3 HEENT: PERRL, EOMI, Sclera Non Icteric Neck: Supple, Good ROM, No Lymph Node Enlargement Lungs: Clear to auscultation Cardiovascular: Regular Rhythm, Normal S1, Normal S2, No Murmurs, No Rubs, No Gallops Vascular: No Carotid Bruits, Normal Femoral Pulses, Normal Radial Pulses, Normal Dorsalis Pedal Pulse, Normal Posterior Tibial Pulses Abdomen: Bowel Sounds Present, Soft, Non Tender, No HSM, No Organomegaly Extremities: No Cyanosis, No Clubbing, No edema Musculoskeletal: No Erythema Skin: No Rashes Neurological: No Focal Motor or Sensory Deficit 01/12/19 04:40: WBC 7.4, RBC 3.90 L, Hgb 10.7 L, Hct 33.4 L, MCV 85.6, MCH 27.4, MCHC 32.0, Plt Count 237, MPV 10.5, Immature Gran % (Auto) 0.400, Neut % (Auto) 53.3, Lymph % (Auto) 35.0, [place] % (Auto) 8.9, Eos % (Auto) 1.9, Baso % (Auto) 0.5, Absolute Neuts (auto) 3.9, Nucleated RBC % 0 01/12/19 04:40: Sodium 145, Potassium 3.8, Chloride 111 H, Carbon Dioxide 29.0, Anion Gap 5, BUN 7, Creatinine 0.75, Est GFR (MDRD) Af Amer 101, Est GFR (MDRD) Non-Af 83, BUN/Creatinine Ratio 9.3 L, Glucose 115 H, Calcium 8.5, Phosphorus 3.5, Magnesium 1.8 Rhythm: EKG: ECHO: Stress Test: Cardiac Cath: PCI: CT Surgery: Holter monitor: EPS: PPM: CXR: Chest CT Scan: Medical Necessity - Tobacco Use Smoking Status: Current every day smoker Tobacco Use: Cigarettes Assessment/Plan 1.Bradycardia. * Patient is noted to have asymptomatic sinus bradycardia with sinus arrhythmia. At this particular time does not appear that there is an obvious etiology. She is on high dose Lyrica and even though this may not have a direct correlation to the above I would suggest that we reduce the dose of the above and see how she responds. I would not make any other changes at this particular time. Her echocardiogram demonstrates overall preserved left ventricular function. * Should continue with telemetry monitoring for now. Can be done in the progressive care unit * All appears to be stable and no active intervention at this particular time. * Thank you for allowing me to participate in the care of your patient. Please don't hesitate to call if any issues arise
--- NOTE | 2019-01-12 08:28 | DCINST_ITS ---
You will use the following diet at home:: Calorie/Carbohydrate Controlled (specify 1200, 1400, etc), Cardiac Your food should be the consistency of: Regular Your liquids should be the consistency of: Regular/Thin Discharge Activity: Return to Normal Activity Call your doctor if you observe: Fever of 101 or Higher, Shortness of breath, Dizziness, Fainting spells, Swelling in the ankles, Chest pain, Increased palpitations (irregular heartbeat) Allergies/Adverse Reactions: Allergies atenolol Allergy (Mild, Verified 01/09/19 16:16) unknown metformin Allergy (Mild, Verified 01/09/19 16:16) nausea, gas, bloating NSAIDS (Non-Steroidal Anti-Inflamma Allergy (Mild, Verified 01/09/19 16:16) eye swelling ibuprofen Allergy (Verified 01/09/19 16:16) Swelling iodine Allergy (Verified 01/09/19 16:16) Anaphylaxis Medications to take at Discharge albuterol sulfate HFA 90 mcg/actuation aerosol inhaler 2 puff INHALATION Q6H PRN 08/06/17 dextroamphetamine-amphetamine 30 mg tablet 30 mg PO BID tab 08/06/17 duloxetine 60 mg capsule,delayed release 120 mg PO QDAY cap 08/06/17 fluticasone propionate 220 mcg/actuation HFA aerosol inhaler 1 puff INHALATION BID 08/06/17 ketoconazole 2 % topical cream 1 applic TOPICAL QDAY PRN 08/06/17 nystatin 100,000 unit/gram topical powder 1 applic TOPICAL BID PRN 08/06/17 omeprazole 40 mg capsule,delayed release 40 mg PO BID 08/06/17 pravastatin 40 mg tablet 40 mg PO QHS 08/06/17 spironolactone 25 mg tablet 25 mg PO QDAY 08/06/17 tizanidine 4 mg tablet 4 mg PO Q4H PRN tab 08/06/17 zolpidem 10 mg tablet 10 mg PO HS PRN 08/06/17 Levothyroxine Sodium [Synthroid] 137 mcg PO DAILY 01/09/19 Oxycodone HCl 20 mg PO TID 01/09/19 Amlodipine Besylate [Norvasc] 10 mg PO QDAY #0 01/12/19 Amoxicillin/Potassium Clav [Augmentin 875-125 Tablet] 1 ea PO BID #14 tab 01/12/19 Hydrochlorothiazide [Hctz] 25 mg PO QAM #0 01/12/19 Lisinopril [Zestril] 40 mg PO QDAY #0 01/12/19 Pregabalin [Lyrica] 150 mg PO BID cap 01/12/19 The following prescriptions were given: Amoxicillin/Potassium Clav [Augmentin 875-125 Tablet] 1 ea PO BID #14 tab Transmission Status: Sent to [facility] Primary Care Physician: Jimmie Aguirre DO [Primary Care Provider] - Please follow up with your Primary Care Physician in: 3-5 days Test Results: Test results from this visit will be discussed in further detail at your follow- up appointment, if applicable.
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
--- NOTE | 2019-01-12 09:28 | CASEMGMT ---
Addendum entered by Vini Ambriz 01/12/19 10:13: [facility] is not able to take referral. Referral faxed to [facility] @ . Original Note: CARMENCITA PHILLIPS Note: Home Health recommended for PT/OT. Pt is agreeable. List of [facility] providers secured from [employer] Website. List printed, reviewed with pt for choices and pt would like [facility] as first choice and [facility]. CARMENCITA PHILLIPS let pt know she would contact her at home to let her know agency and anticipated start date of PT/OT. Pt is agreeable, her brother is providing ride home. No further needs identified. =Referral faxed to [facility] for review. Thang SIERRA RN ACM
--- NOTE | 2019-01-12 09:29 | CASEMGMT ---
Patient is being discharged. SW spoke with patient about advance directives. She did not have time to do them as her brother was on his way to pick her up. SW gave her the documents and the [employer] pamphlet for completing advance directives as an outpatient. Shi ROBLEDO MSW
--- NOTE | 2019-01-13 10:02 | CASEMGMT ---
CARMENCITA PHILLIPS DC PHONE CALL DC Date: 01.12.19 DC Disposition: Home with [facility] for PT/OT LACE/STRATA: 02/25 -CARMENCITA PHILLIPS called to [facility]. Spoke with Pavithra who states they are able to accept pt and will open case this week. -CARMENCITA PHILLIPS called to patient's listed phone #. No answer, but messaging did have name identifier. Message left with call back information for [facility] PHILL[facility] and notified [facility] was set up. Phone # for [facility] was left on message. Thang PFEIFFERN RN ACM
== END 2019-01-12 09:30 | disposition home health service (06) | DRG 871 ==
LOC: ED 17:17 → ICU 01-10 07:12
PROVIDERS: Internal Medicine Critical Care Medicine; Admitting Provider Student in an Organized Health Care Education/Training Program; Emergency Provider Emergency Medicine; Family Provider Family Medicine; PCP Family Medicine; Referring Provider Student in an Organized Health Care Education/Training Program; Visit Provider Family Medicine
DX: A41.50 Gram-negative sepsis, unspecified (principal); R65.21 Severe sepsis with septic shock; J69.0 Pneumonitis due to inhalation of food and vomit; J96.01 Acute respiratory failure with hypoxia; J15.6 Pneumonia due to other Gram-negative bacteria; G92 Toxic encephalopathy; N17.9 Acute kidney failure, unspecified; G12.9 Spinal muscular atrophy, unspecified; T40.605A Adverse effect of unspecified narcotics, initial encounter; E87.6 Hypokalemia; G89.4 Chronic pain syndrome; I10 Essential (primary) hypertension; E03.9 Hypothyroidism, unspecified; E05.00 Thyrotoxicosis with diffuse goiter without thyrotoxic crisis or storm; G47.33 Obstructive sleep apnea (adult) (pediatric); K21.9 Gastro-esophageal reflux disease without esophagitis; E78.5 Hyperlipidemia, unspecified; F32.9 Major depressive disorder, single episode, unspecified; F90.9 Attention-deficit hyperactivity disorder, unspecified type; Z91.19 Patient's noncompliance with other medical treatment and regimen; F17.210 Nicotine dependence, cigarettes, uncomplicated; Z66 Do not resuscitate
CPT/HCPCS: 36569; 71045; 80048; 80320; 81001; 83605; 83735; 84100; 84439; 84443; 84484; 85025; 87040; 87070; 87205; 87449; 87641; 93005; 93306; 94002; 94003; 94640; 97162; 97166; 99285; 99406; J7030; J7050; Q9957; A4216; G0480

== ENCOUNTER → 2019-03-21 16:59 | Outpatient (CLI) | payer MEDICARE, SELFPAY ==
[2019-01-09 21:50] VITALS: BMI 31.4
--- NOTE | 2019-03-21 18:00 | RAD_ITS ---
STUDY: X-RAY - LUMBAR SPINE REASON FOR EXAM: Female, 63 years old. Extreme back pain. TECHNIQUE: 4 view(s) of the lumbar spine were obtained including flexion-extension views. COMPARISON: None FINDINGS: There is straightening of the normal lumbar lordosis. There is no substantial scoliosis. Grade 2 anterior listhesis of L4 on L5 which exaggerates on the flexion lateral view. There is generalized demineralization of the vertebral bodies. 50% loss of height of the L1 vertebrae There is multi-level degenerative disc disease with multi-level disc space narrowing. There is atherosclerotic calcification of the abdominal aorta without a demonstrated aneurysm. RAD/L/S Spine Min 4 Views IMPRESSION: Degenerative changes of the spine, as detailed above. Grade 2 anterolisthesis of L4 on L5 with exaggeration during the flexion view. 50% loss of height of the L1 vertebrae. Electronically Signed: Jhonny Torrez, at 8:59 EDT , Service support ,
--- NOTE | 2019-03-21 18:00 | RAD_ITS ---
STUDY: THORACIC AND LUMBAR SPINE. REASON FOR EXAM: Female, 63 years old. Chronic back pain. TECHNIQUE: AP and lateral views were obtained. COMPARISON: None. FINDINGS: Mild dextroscoliosis at the thoracolumbar region. Increased kyphosis. Demineralization of the thoracic vertebrae with multilevel disc space narrowing and degeneration. RAD/Scoliosis 2 or 3 views IMPRESSION: Degenerative changes. Mild dextroscoliosis at the thoracolumbar level as well as increased kyphosis. Electronically Signed: Jhonny Torrez, at 8:19 EDT , Service support ,
== END ==
PROVIDERS: Family Provider Family Medicine; PCP Family Medicine
DX: M99.73 Connective tissue and disc stenosis of intervertebral foramina of lumbar region (principal); M40.209 Unspecified kyphosis, site unspecified; G95.9 Disease of spinal cord, unspecified; M84.48XA Pathological fracture, other site, initial encounter for fracture
CPT/HCPCS: 72082; 72110

== ENCOUNTER 2019-03-21 18:42 | Emergency (ER) | payer MEDICARE, SELFPAY ==
[2019-01-09 21:50] VITALS: BMI 31.4
[2019-03-21 18:43] VITALS: BP 101/59; PULSE 53; PULSE 56; RESP 16; TEMP 36.3; O2SAT 96; BMI 31.4
--- NOTE | 2019-03-21 19:15 | EKG12_ITS ---
Test Reason : SOB Blood Pressure : / mmHG Vent. Rate : 047 BPM Atrial Rate : 047 BPM P-R Int : 168 ms QRS Dur : 098 ms QT Int : 458 ms P-R-T Axes : 069 080 072 degrees QTc Int : 405 ms Sinus bradycardia Nonspecific T wave abnormality Abnormal ECG Confirmed by SAMMY EASLEY, NERY ([id number]), clinical editor ARMAND COUCH ([id number]) on 03/23/2019 11:21:09 AM Referred By: ROBERT Confirmed By:NERY CHRISTIANSON MD
--- NOTE | 2019-03-21 19:15 | ED.DCSUM_ITS ---
History of Present Illness Chief Complaint: Shortness of Breath Informant: Patient Onset: Days Context: Gradual Onset Narrative: She is a 63-year-old female with history of asthma, chronic back pain, hypertension, hyperlipidemia, fibromyalgia, GERD, Graves' disease, IBS, anxiety/depression and spinal stenosis presenting from home with concern for pneumonia. Patient states she is been more short of breath over the past 3 to 4 days as well as had a hacking cough. Is been intimately productive of mucus. She denies any fever or chills. She notes when she woke up this morning she is having a lot of thoracic back pain. She took her regular pain medication which helped with the pain. Patient is concerned that she is aspirating. She states because of her bad back she sleeps in a recliner. Often at night she falls out of her chair and on to the floor. She wakes up with drainage coming out of her nose that is either clear or red/brown. She thinks it stomach content. Patient denies any fever. She denies any chest pain. She also states that whenever her furnace is on she smells something and is worried that that is irritating her lungs. She states this is been going on for months but her heat recently went back on. Patient denies any other complaints at this time. Past Medical History - Allergies and Home Meds Allergies/Adverse Reactions: Allergies atenolol Allergy (Mild, Verified 03/21/19 18:43) unknown metformin Allergy (Mild, Verified 03/21/19 18:43) nausea, gas, bloating NSAIDS (Non-Steroidal Anti-Inflamma Allergy (Mild, Verified 03/21/19 18:43) eye swelling ibuprofen Allergy (Verified 03/21/19 18:43) Swelling iodine Allergy (Verified 03/21/19 18:43) Anaphylaxis Primary Care Physician: Jimmie Aguirre DO [Primary Care Provider] - Past Medical History: - - Hypertension, hyperlipidemia, fibromyalgia, asthma, spinal stenosis Surgical History: noncontributory Lives: Alone Smoking Status: Current every day smoker - Family History Maternal Family History: Family History (Last Updated 08/06/17 @ 11:40 by Ysabel Noonan) Mother Breast cancer Hypertension CVA (cerebral vascular accident) Diabetes Brother Diabetes Sister Diabetes Father Heart disease Alcohol abuse Family History: Reports: Cancer Review of Systems All systems negative except as indicated General: Reports: Malaise Respiratory: Reports: Dyspnea, Cough, Sputum Musculoskeletal: Reports: Back pain - Chronic low back pain but new thoracic back pain Physical Exam Vital Signs/Narrative: Vital Signs Temp Pulse Resp BP Pulse Ox 03/21/19 18:43 97.4 F L 53 L 16 101/59 L 96 Inital Vital Signs reviewed: Yes General: Well nourished, Well developed, No Acute Distress Head: Normocephalic, Atraumatic Eyes: Perrl, EOMI ENT: Moist mucous membranes, No rhinorrhea, TM's clear Neck: Supple, Nontender Cardiovascular: Regular rate, Regular rhythm, No murmurs Respiratory: No distress, Chest nontender, Wheezing - Diffuse end expiratory wheezing. Negative for: Diminished, Decreased Air Movement Abdomen: Soft, Nontender, Nondistended, Normal bowel sounds Back: Nontender, Normal Inspection. Negative for: CVA tenderness Extremities: Nontender, No edema Skin: Normal color, No rash Neurological: Alert, Oriented x3, Cranial nerves II-XII grossly intact, Normal Strength, Normal Sensation Psychological: Normal affect, Normal Mood Diagnostic/Tx/Re-eval Chest X-Ray - ED: 2 View, Read by ED Physician, Read by Radiologist, No Acute Disease Clinical Impression(s) from Imaging Studies Chest X-Ray 03/21/19 19:34 IMPRESSION: Cardiomegaly with hyperexpansion and diffuse interstitial pattern. No acute finding. Electronically Signed: Filiberto Law MD at 19:53 EDT , Service support , Laboratory Data 03/21/19 03/21/19 19:20 19:20 WBC 10.1 RBC 4.91 Hgb 13.2 Hct 42.0 MCV 85.5 MCH 26.9 L MCHC 31.4 L RDW Std Deviation 44.5 H RDW Coeff of Robyn 14.2 Plt Count 272 MPV 10.5 Immature Gran % (Auto) 0.200 Neut % (Auto) 57.1 Lymph % (Auto) 33.2 Frederick % (Auto) 6.7 Eos % (Auto) 2.1 Baso % (Auto) 0.7 Absolute Neuts (auto) 5.8 Absolute Lymphs (auto) 3.35 Nucleated RBC % 0 Sodium 139 Potassium 3.6 Chloride 107 Carbon Dioxide 28.0 Anion Gap 4 L BUN 10 Creatinine 0.73 Estim Creat Clear Calc 75.76 Est GFR (MDRD) Af Amer 105 Est GFR (MDRD) Non-Af 87 BUN/Creatinine Ratio 13.8 Glucose 86 Calcium 9.2 Troponin I < 0.015 - Rhythm Strip Rhythm Strip: Sinus bradycardia Rate: 47 Ectopy: None - EKG Initial EKG Interpretation: Sinus Bradycardia, - - Sinus bradycardia rate of 47 Normal inter vals Normal axis Normal ST segments - Medical Decision Making Patient is evaluated for concern of pneumonia. She notes she has had some shortness of breath and cough. She said some mucus production. Patient appears nontoxic in no acute distress. Her vital signs are grossly normal. She is intimately bradycardic at rest. Chart review shows that the patient was previo us evaluated for bradycardia by cardiology and it was felt to be benign. Patient has a normal blood pressure and is otherwise asymptomatic. She does have coarse breath sounds as well as wheezing. She is given a breathing treatment does have some slight improvement. Chest x-ray does not show any acute infiltrate concerning for pneumonia or other process. Laboratory work-up is largely unremarkable. I suspect this is more of an asthma/COPD exacerbation. She will be started on steroids. She is not hypoxic and she is otherwise well- appearing. CBC, BMP and troponin are grossly normal. She is a good candidate for outpatient follow-up. She states she has an albuterol inhaler at home. She is not ready to refill this. She is instructed to follow-up with her primary care doctor in the next few days. Patient is counseled on signs and symptoms requiring return to the emergency room. Patient verbalizes agreement and understand this plan. Patient discharged home in stable and improved condition. ED Disposition - Plan for ED Patient: Disposition: Home or Assisted Living Diagnosis: Reactive airway disease with acute exacerbation Instructions: ASTHMA, Acute (Adult) Prescriptions: Prednisone [Deltasone] 40 mg PO DAILY #8 tab Prescription Printed Referrals: Jimmie Aguirre DO [Primary Care Provider] - Additional Instructions: Use your inhaler every 4-6 hours as needed for any shortness of breath or wheezing. Follow-up with your primary care doctor within the next few days. Return to emergency room if you develop worsening symptoms. Your heart rate was slightly slow today but it does not seem to be bothering you. You can follow-up with your primary care doctor for the slow heart rate as well.
[2019-03-21 19:30] LABS: Absolute Lymphocyte Count 3.35 X10^3/uL (0.83-4.51); Absolute Neutrophil Count 5.8 X10^3/uL (2.0-7.7); Basophil# 0.07 X10^3/uL; Basophil% 0.7 % (0-1); Eosinophil# 0.21 X10^3/uL; Eosinophils% 2.1 % (0-5); Hemoglobin 13.2 g/dL (12.0-15.0); Lymphocyte # 3.35 X10^3/ul (4.0); Lymphocyte % 33.2 % (19-41); Mean Corp Hgb Conc 31.4 g/dL (32-36); Mean Corpuscular Hgb 26.9 pg (27.0-32.0); Mean Corpuscular Volume 85.5 fL (81-99); Mean Platelet Vol. 10.5 fl (6.2-12.0); Monocyte# 0.68 X10^3/uL; Monocyte% 6.7 % (0-10); NRBC Flagged by Analyzer 0 % (0-5); Neutrophil # 5.75 X10^3/uL (2.7-7.7); Neutrophil % 57.1 % (47-70); Platelet Count 272 K/mm3 (150-450); RBC Distribution Width CV 14.2 % (11.6-14.6); RBC Distribution Width SD 44.5 fl (35.1-43.9); Red Blood Count 4.91 M/mm3 (4.2-5.4); White Blood Count 10.1 K/mm3 (4.4-11.0)
--- NOTE | 2019-03-21 19:34 | RAD_ITS ---
STUDY: X-RAY CHEST REASON FOR EXAM: Female, 63 years old. Shortness of breath and weakness. TECHNIQUE: Frontal and lateral views of the chest. COMPARISON: January 09, 2019 FINDINGS: Hyperexpansion. Diffuse interstitial pattern. Patchy opacity in the right base on the prior study has resolved. There is no demonstrated pleural abnormality. Borderline cardiomegaly unchanged. Normal mediastinum and kayla. Normal visualized pulmonary arteries. Normal visualized aortic arch and descending thoracic aorta. Thoracic osteopenia with spondylosis. Normal visualized thoracic spine. Normal visualized ribs, clavicles, and shoulders. There is no demonstrated abnormality of the visualized soft tissue structures of the upper abdomen. RAD/Chest PA and Lateral IMPRESSION: Cardiomegaly with hyperexpansion and diffuse interstitial pattern. No acute finding. Electronically Signed: Filiberto Law MD at 19:53 EDT , Service support ,
[2019-03-21 19:47] VITALS: BP 105/57; PULSE 52; RESP 16
[2019-03-21 19:49] VITALS: PULSE 43; RESP 12
[2019-03-21] MEDS: Ipratropium/Albuterol Sulfate 3 ML AMPUL.NEB INHALATION (19:49)
[2019-03-21 19:50] LABS: Anion Gap 4 (5-15); BUN 10 mg/dL (7-18); BUN/Creat Ratio 13.8 RATIO (10-20); Calcium,Total 9.2 mg/dL (8.5-10.1); Chloride 107 mmol/L (98-107); Creatinine, Serum 0.73 mg/dL (0.55-1.02); EST Glomerular Filtration Rate 87 mL/min (>60); Est Glom Filt Rate - Afr Amer 105 mL/min (>60); Estimated Creatinine Clearance 75.76 ml/min; Glucose 86 mg/dL (74-106); Potassium 3.6 mmol/L (3.5-5.1); Sodium Level 139 mmol/L (136-145)
[2019-03-21 20:47] VITALS: BP 115/78; PULSE 56; RESP 16; O2SAT 95
[2019-03-21] MEDS: predniSONE 20 MG Tablet 60 MG PO (20:48)
== END 2019-03-21 21:02 | disposition home or self-care (01) ==
PROVIDERS: Emergency Provider Emergency Medicine; Family Provider Family Medicine; PCP Family Medicine
DX: J45.901 Unspecified asthma with (acute) exacerbation (principal); E05.00 Thyrotoxicosis with diffuse goiter without thyrotoxic crisis or storm; E78.5 Hyperlipidemia, unspecified; F32.9 Major depressive disorder, single episode, unspecified; F41.9 Anxiety disorder, unspecified; G89.29 Other chronic pain; I10 Essential (primary) hypertension; K21.9 Gastro-esophageal reflux disease without esophagitis; F17.200 Nicotine dependence, unspecified, uncomplicated; Z82.3 Family history of stroke; Z82.49 Family history of ischemic heart disease and other diseases of the circulatory system; Z88.6 Allergy status to analgesic agent; M99.73 Connective tissue and disc stenosis of intervertebral foramina of lumbar region; M40.209 Unspecified kyphosis, site unspecified; G95.9 Disease of spinal cord, unspecified; M84.48XA Pathological fracture, other site, initial encounter for fracture
CPT/HCPCS: 71046; 72082; 72110; 80048; 84484; 85025; 93005; 94640; 99285; A4216

== ENCOUNTER → 2019-05-12 07:32 | Outpatient (CLI) | payer MEDICARE, SELFPAY ==
[2019-04-14 13:40] VITALS: BMI 31.9
--- NOTE | 2019-05-13 09:35 | STRESSREP ---
Stress Test Report Pharmacologic myocardial perfusion stress test. 63-year-old lady with a history of chest discomfort for preoperative cardiac evaluation. Stress protocol. Resting EKG demonstrates sinus bradycardia with a rate of 55 bpm normal intervals are noted. 0.4 mg of regadenoson was infused per usual protocol followed by rapid intravenous saline flush injection continuous EKG monitoring was performed. The maximum heart rate attained was 82 bpm which was 51% of maximum predicted heart rate the maximum workload was 1 metabolic equivalent. At rest there were no ST or T wave changes noted suggest ischemia at peak infusion nonspecific ST-T wave changes were noted. Myocardial perfusion protocol. 11.0 mCi of technetium 99m sestamibi was injected at rest. 0.4 mg of regadenoson was infused per usual protocol peak infusion 33.0 mCi of technetium 99m sestamibi was injected stress images were obtained stress and rest images were reconstructed and compared in the short axis vertical long horizontal long axis. Gated images were also obtained Perfusion SPECT analysis: Review of the stress images demonstrate normal uptake of tracer noted in all areas of the myocardium the resting images similar demonstrate normal uptake of tracer noted in all areas of myocardium. Gated SPECT analysis: The gated ejection fraction is noted to be 75%. Conclusion: Normal pharmacologic myocardial perfusion stress test. Preserved ejection fraction.
== END ==
PROVIDERS: Family Provider Family Medicine; PCP Family Medicine; Referring Provider Internal Medicine Cardiovascular Disease; Visit Provider Internal Medicine Cardiovascular Disease
DX: Z01.810 Encounter for preprocedural cardiovascular examination (principal); R94.31 Abnormal electrocardiogram [ECG] [EKG]
CPT/HCPCS: 78452; 93017; A9500; A4216; J2785

== ENCOUNTER → 2020-03-29 13:24 | Outpatient (CLI) | payer MEDICARE, SELFPAY ==
[2020-03-07 15:02] VITALS: BMI 35.9
--- NOTE | 2020-03-29 13:33 | MRI_ITS ---
STUDY: MRI THORACIC SPINE WITHOUT CONTRAST REASON FOR EXAM: Female, 64 years old. cauda equina syndrome, fx -- chronic pain entire spine, bilat extremity weakness TECHNIQUE: Standardized fat and water weighted pulse sequences were obtained in the sagittal and axial planes. COMPARISON: None. FINDINGS: Normal kyphosis of the thoracic spine. There is no substantial scoliosis. There is mild chronic wedging of superior endplate of L1. No acute fracture or subluxation. Intervertebral disc space heights are well-maintained however there is multilevel disc degeneration. There is minor bulging of the disc at T4-5 without spinal stenosis. There is a tiny central disc protrusion at T5-6 and small left paracentral disc protrusion at T6-7 without spinal stenosis or cord compression. There is minimal bulging of the discs at T8-9, T9-10 and T12-L1 without spinal stenosis or cord compression Normal visualized thoracic cord. Normal conus medullaris that terminates at T12-L1 The soft tissue structures are unremarkable. MRI/Spine Thoracic (Routine) IMPRESSION: No evidence for acute fracture or other significant bony pathology. Multilevel disc degeneration and disc disease without significant spinal stenosis or cord compression Electronically Signed: Max Joshi MD at 15:58 EST , Service support ,
--- NOTE | 2020-03-29 15:43 | MRI_ITS ---
STUDY: MRI LUMBAR SPINE WITHOUT CONTRAST REASON FOR EXAM: Female, 64 years old. back pain, cauda equina syndrome -- chronic back pain, bilat extremity weakness TECHNIQUE: Standardized fat and water weighted pulse sequences were obtained in the sagittal and axial planes. COMPARISON: None FINDINGS: T12-L1: Chronic wedging of superior endplate of L1. Normal disc height, desiccation and tiny left posterolateral disc/osteophyte protrusion. Normal bilateral facet joints. Normal central canal and bilateral lateral recesses. Normal bilateral intervertebral neural foramina. Normal lumbar lordosis. There is no substantial scoliosis. Normal conus medullaris that terminates at T12-L1 L1-2: Normal endplates. Normal disc height, hydration and minimal annular bulge.. Normal bilateral facet joints. Normal central canal and bilateral lateral recesses. Normal bilateral intervertebral neural foramina. L2-3: Normal endplates. Normal disc height, hydration and morphology. Normal bilateral facet joints. Normal central canal and bilateral lateral recesses. Normal bilateral intervertebral neural foramina. L3-4: Normal endplates. Normal disc height, desiccation and mild annular bulge with small left foraminal disc protrusion.. Mild facet arthropathy and thickening of ligamenta flava.. Normal central canal and bilateral lateral recesses. Mild right neuroforaminal encroachment and moderate left neuroforaminal stenosis L4-5: Grade 1 spondylolisthesis. Narrowed disc space with desiccation of the disc and mild bulging disc osteophyte complex. Bilateral facet arthropathy and thickening of ligamenta flava. Moderate narrowing of the central canal bilateral recesses and moderate to severe narrowing of the neuroforamina exaggerated by shortened pedicles L5-S1: Degenerative endplate changes.. Narrowed disc space with desiccation of disc and minor bulging of the annulus with small right foraminal disc/osteophyte protrusion.. Bilateral facet arthropathy.. Normal central canal and bilateral lateral recesses.. Mild to moderate left neuroforaminal stenosis and severe narrowing on the right. Normal visualized sacral ala. Normal visualized paraspinous soft tissue structures. MRI/Spine Lumbar (Routine) IMPRESSION: No evidence for acute fracture or other significant bony pathology. Spondylosis and multilevel spinal stenosis secondary to disc disease and bony hypertrophy most severe at L4-5 exaggerated by shortened pedicles. Findings as above Electronically Signed: Max Joshi MD at 16:06 EST , Service support ,
== END ==
PROVIDERS: PCP Family Medicine; Referring Provider Psychiatry & Neurology Neurology; Visit Provider Psychiatry & Neurology Neurology
DX: S22.009A Unspecified fracture of unspecified thoracic vertebra, initial encounter for closed fracture (principal); S32.000A Wedge compression fracture of unspecified lumbar vertebra, initial encounter for closed fracture
CPT/HCPCS: 72146; 72148

== ENCOUNTER → 2020-03-30 15:16 | Outpatient (CLI) | payer MEDICARE, SELFPAY ==
[2020-03-07 15:02] VITALS: BMI 35.9
--- NOTE | 2020-03-30 15:20 | BD_ITS ---
STUDY: DUAL ENERGY X-RAY ABSORPTIOMETRY / DXA REASON FOR EXAM: Female, 64 years old. 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 COMPARISON: Comparison is made with prior study dated 09/18/2017. FINDINGS: Lumbar Spine (L1-L4): g/cm2 (0.885) / T-score (-2.3) / Z-score (-1.0) Findings are suggestive of osteopenia with a high fracture risk. Left Femur Total: g/cm2 (0.848) / T-score (-1.3) / Z-score (-0.2) Left Femoral Neck: g/cm2 (0.894) / T-score (-1.0) / Z-score (0.3) Right Femur Total: g/cm2 (0.804) / T-score (-1.6) / Z-score (-0.6) Right Femoral Neck: g/cm2 (0.839) / T-score (-1.4) / Z-score (-0.1) The T-Scores on the most recent prior examination were: Lumbar Spine (L1-L4): There has been no change of bone density since the previous examination. Left Femur Total: which represents a worsening of 4.8%. Right Femur Total: which represents a worsening of 5.5%. BD/Dexa Bone Density Study IMPRESSION: The patient is considered osteopenic as outlined below according to World [place] Organization (WHO) criteria with a high fracture risk. There has been worsening of bone density since the previous examination. Reference Information: The T-score is the number of standard deviations above or below the standard which is normal for young adults at their peak bone mineral density. The World Health Organization (WHO) interprets the T-scores as follows: Above -1 Normal bone density Between -1 and -2.5 Osteopenia Equal to / or below -2.5 Osteoporosis As a practical clinical guideline, osteopenia may be graded as follows: Mild -1 through -1.5 Moderate -1.6 through -2.0 Severe -2.1 through -2.4 The Z-score is the number of standard deviations above or below age-matched controls. A Z-score of less than -1.5 would be considered abnormal. References: 1. NIH Osteoporosis and Related Bone Diseases www osteo.org 2. International Society for Clinical Densitometry www iscd.org 3. National Osteoporosis Foundation www nof.org Electronically Signed: Jhnony Torrez, at 15:28 EST , Service support ,
== END ==
PROVIDERS: PCP Family Medicine; Referring Provider Psychiatry & Neurology Neurology; Visit Provider Psychiatry & Neurology Neurology
DX: S32.000A Wedge compression fracture of unspecified lumbar vertebra, initial encounter for closed fracture (principal)
CPT/HCPCS: 77080

== ENCOUNTER → 2020-04-06 16:10 | Outpatient (CLI) | payer MEDICARE, SELFPAY ==
[2020-04-06 15:24] VITALS: BMI 35.9
[2020-04-06 17:02] LABS: Hemoglobin 12.8 g/dL (12.0-15.0); Mean Corp Hgb Conc 30.5 g/dL (32-36); Mean Corpuscular Hgb 26.5 pg (27.0-32.0); Mean Platelet Vol. 10.4 fl (6.2-12.0); Platelet Count 284 K/mm3 (150-450); RBC Distribution Width CV 14.5 % (11.6-14.6); RBC Distribution Width SD 46.8 fl (35.1-43.9); Red Blood Count 4.83 M/mm3 (4.2-5.4)
[2020-04-06 17:22] LABS: Vitamin B12 402 pg/mL (211-911); Vitamin D,25 Hydroxy 25.8 ng/mL
[2020-04-06 17:27] LABS: Hemoglobin A1c 6.5 % (3.8-5.6)
[2020-04-06 17:28] LABS: T4 Free Direct 1.51 ng/dL (0.76-1.46); Thyroid Stim Hormone (TSH) 0.16 uIU/mL (0.358-3.74)
[2020-04-06 17:31] LABS: AST(SGOT) 14 U/L (15-37); Alanine Aminotransfer ALT/SGPT 43 U/L (13-56); Albumin, Serum 3.4 g/dL (3.2-5.0); Alkaline Phosphatase 101 U/L (45-117); Anion Gap 5 (5-15); BUN 15 mg/dL (7-18); BUN/Creat Ratio 16.6 RATIO (10-20); CPK Total, Creatine Kinase 76 U/L (26-192); Calcium,Total 8.7 mg/dL (8.5-10.1); Chloride 104 mmol/L (98-107); EST Glomerular Filtration Rate 67 mL/min (>60); Erythrocyte Sedimentation Rate 7 mm/hr (0-30); Est Glom Filt Rate - Afr Amer 81 mL/min (>60); Globulin 3.4 g/dL (2.2-4.2); Glucose 155 mg/dL (74-106); Potassium 3.5 mmol/L (3.5-5.1); Protein, Total 6.8 g/dL (6.4-8.2); Rheumatoid Factor < 10.0 IU/mL (<15); Sodium Level 141 mmol/L (136-145); Thyroid Stim Hormone (TSH) 0.15 uIU/mL (0.358-3.74)
[2020-04-10 18:20] LABS: ANTINUCLEAR ANTIBODIES DIRECT Negative (Negative)
[2020-04-11 08:08] LABS: Aldolase 4.5 U/L (3.3-10.3); Free Kappa Light Chains 14.9 mg/L (3.3-19.4); Free Lambda Light Chains 13.7 mg/L (5.7-26.3)
[2020-04-11 10:59] LABS: Myoglobin, Serum 50 ng/mL (25-58)
== END ==
LOC: BIMLAB 16:11
PROVIDERS: Internal Medicine Endocrinology, Diabetes & Metabolism; PCP Family Medicine; Referring Provider Psychiatry & Neurology Neurology; Visit Provider Psychiatry & Neurology Neurology
DX: R00.1 Bradycardia, unspecified (principal); E03.8 Other specified hypothyroidism; E06.3 Autoimmune thyroiditis; R73.03 Prediabetes; M85.80 Other specified disorders of bone density and structure, unspecified site; M79.10 Myalgia, unspecified site; G62.9 Polyneuropathy, unspecified; Z01.810 Encounter for preprocedural cardiovascular examination
CPT/HCPCS: 36415; 80053; 82085; 82306; 82550; 82607; 82746; 83036; 83874; 83883; 84439; 84443; 85027; 85652; 86038; 86225; 86235; 86431

== ENCOUNTER → 2020-04-11 16:40 | Outpatient (CLI) | payer MEDICARE, SELFPAY ==
[2020-03-07 15:02] VITALS: BMI 35.9
[2020-04-06 15:24] VITALS: BMI 35.9
--- NOTE | 2020-04-11 16:48 | MRI_ITS ---
STUDY: MRI CERVICAL SPINE WITHOUT CONTRAST REASON FOR EXAM: Female, 64 years old. Neck pain, new diagnosis of Statin Induced Necrotizing Auto Immune Myopathy; TECHNIQUE: Standardized fat and water weighted pulse sequences were obtained in the sagittal and axial planes. COMPARISON: X-ray 09/30/2017. FINDINGS: Normal foramen magnum and brainstem-cervical cord junction. Normal craniovertebral junction. Normal anterior atlantoaxial articulation. Normal odontoid process. There is straightening of the normal cervical lordosis. Normal vertebral bodies and posterior osseous elements. C2-3: Normal endplates. Normal disc height, signal and morphology. Normal central canal. Mild foraminal encroachment due to uncinate hypertrophy. C3-4: Normal endplates. Normal disc height, signal and morphology. Mild canal stenosis predominantly due to shortened pedicles. Foraminal stenosis is moderate on the right and mild on the left due to uncinate and facet hypertrophy. C4-5: Normal endplates. Normal disc height, signal and morphology. Mild canal stenosis due to shortened pedicles. Mild right foraminal encroachment due to uncinate hypertrophy. C5-6: Normal endplates. Mild disc space narrowing. Mild spondylotic bar causing mild cord flattening. Mild canal stenosis due to spondylosis and shortened pedicles. Foraminal stenosis is moderate on the left and severe on the right due to uncinate hypertrophy. C6-7: Normal endplates. Mild disc space narrowing. Mild spondylotic bar causes mild cord flattening. There is mild canal stenosis due to shortened pedicles and spondylosis. Moderate foraminal stenosis due to uncinate hypertrophy. C7-T1: Normal endplates. Normal disc height, signal and morphology. Normal central canal and intervertebral neural foramina. Normal cervical cord. Normal visualized soft tissue structures. MRI/Spine Cervical (Routine) IMPRESSION: 1. Mild canal stenosis at 4 and C3-C4 through C6-C7, due in part to short pedicles. 2. Moderate to severe foraminal stenosis at C3-C4, C5-C6 and C6-C7. 3. Degenerative changes are detailed above. Electronically Signed: Michelle Humphrey MD at 18:57 EST Tel , Service support ,
== END ==
PROVIDERS: PCP Family Medicine; Referring Provider Psychiatry & Neurology Neurology; Visit Provider Psychiatry & Neurology Neurology
DX: M48.02 Spinal stenosis, cervical region (principal)
CPT/HCPCS: 72141

== ENCOUNTER → 2020-04-13 16:57 | Outpatient (CLI) | payer MEDICARE, SELFPAY ==
[2020-03-07 15:02] VITALS: BMI 35.9
[2020-04-06 15:24] VITALS: BMI 35.9
--- NOTE | 2020-04-13 16:58 | MRI_ITS ---
STUDY: MRI BRAIN WITH AND WITHOUT CONTRAST REASON FOR EXAM: Female, 64 years old. MEMORY LOSS, CONFUSION TECHNIQUE: Standardized multiplanar fat and water weighted pulse sequences were obtained. IV 19CC DOTAREM was administered for the contrast portion of the examination. COMPARISON: None. FINDINGS: Mild atrophy and periventricular white matter ischemic changes without mass effect or restricted diffusion. Normal bilateral basal ganglia. Normal thalami. There is no extra-axial fluid accumulation. Normal flow voids within the major intracranial circulation suggesting patency by spin echo criteria. Normal venous enhancement. There is no enhancing intra-axial or extra-axial abnormality. Empty sella deformity of uncertain clinical significance. Normal, infundibular stalk, optic chiasm and hypothalamus. Normal tectal plate and pineal gland. Normal midbrain, tim and medulla. Normal cerebellum. Normal basal cisterns. Normal bilateral temporal bones. Normal bilateral internal auditory canals. No demonstrated orbital abnormality, within the constraints of a routine brain study. There is mucosal thickening of the maxillary ethmoid and frontal sinuses bilaterally. Normal calvarium and skull base. Normal visualized soft tissue structures. Normal visualized upper cervical spine. MRI/Brain W/WO Contrast IMPRESSION: Mild atrophy and periventricular white matter ischemic changes without evidence for acute infarct. No enhancing lesions following contrast administration. Empty sella deformity of uncertain clinical significance. Mild diffuse bilateral maxillary ethmoid and frontal sinus disease Electronically Signed: Max Joshi MD at 20:45 EST , Service support ,
== END ==
LOC: MRI 16:58
PROVIDERS: PCP Family Medicine; Referring Provider Psychiatry & Neurology Neurology; Visit Provider Psychiatry & Neurology Neurology
DX: R41.3 Other amnesia (principal)
CPT/HCPCS: 70553; A9575

== ENCOUNTER → 2020-05-05 17:24 | Outpatient (CLI) | payer MEDICARE, SELFPAY ==
[2020-04-18 17:22] VITALS: BMI 35.9
[2020-05-05 18:35] LABS: Anion Gap 4 (5-15); BUN 18 mg/dL (7-18); Calcium,Total 9.3 mg/dL (8.5-10.1); Chloride 104 mmol/L (98-107); EST Glomerular Filtration Rate 68 mL/min (>60); Est Glom Filt Rate - Afr Amer 82 mL/min (>60); Glucose 89 mg/dL (74-106); Potassium 3.4 mmol/L (3.5-5.1); Sodium Level 139 mmol/L (136-145); T4 Free Direct 1.58 ng/dL (0.76-1.46); Thyroid Stim Hormone (TSH) 0.48 uIU/mL (0.358-3.74)
[2020-05-06 08:00] LABS: SARS-COV-2 TOTAL ABS Nonreactive (Nonreactive)
== END ==
PROVIDERS: Internal Medicine Endocrinology, Diabetes & Metabolism; PCP Family Medicine; Visit Provider Family Medicine
DX: E89.0 Postprocedural hypothyroidism (principal); E11.9 Type 2 diabetes mellitus without complications; Z20.828 Contact with and (suspected) exposure to other viral communicable diseases
CPT/HCPCS: 36415; 80048; 84439; 84443; 86769

== ENCOUNTER → 2020-06-07 17:24 | Outpatient (CLI) | payer MEDICARE, SELFPAY ==
[2020-04-18 17:22] VITALS: BMI 35.9
== END ==
LOC: LABSPEC 17:24
PROVIDERS: PCP Family Medicine; Referring Provider Otolaryngology; Visit Provider Otolaryngology
DX: Z11.59 Encounter for screening for other viral diseases (principal)
CPT/HCPCS: 87635; C9803; U0005; U0003

== ENCOUNTER 2020-06-21 13:18 | Outpatient (RCR) | payer MEDICARE, SELFPAY ==
[2020-04-18 17:22] VITALS: BMI 35.9
--- NOTE | 2020-06-22 11:50 | HP.PTEVAL_ITS ---
Patient's Visit Information RADHA VALLE is a 64 year old F referred to Physical Therapy by Dr. Gerald Lemus MD with a diagnosis of low back pain, radiculopathy, cauda equina syndrome, cervcalgia. Date of Evaluation: 06/21/20 Physical Therapist: Pedro Jennings DPT - Visit Plan Frequency: 2x /Week Duration: 8 weeks Plan: Start with neutral spine core stability exercises, BLE strengthening. Add in manual stretching and DTM to L UT. Massage may be benefitial for this patient as well. Progress gait and endurance as tolerated. - Subjective Pt. is here today for her initial evaluation with diagnosis of low back pain, radiculopathy, cauda equina syndrome, cervcalgia. Pt. reports having increased pain for years now. Pt. recently went hospital due to low back pain and cervicalgia. pt. did have injections recently in her neck with decent results. Pt has been having issues for years and has been to multiple neurologists adn have been told she has necrotizing autoimmundisorder. More recently she was diagnosed with statin induced myopathy, and cauda equina syndrome. She reports having occassional lack of control of bladder, but is not consistent. She has had saddle region pain, but again not consistent. Her greatest complaint is that she had reduced BLE strength, neck pain and BLE pain. Pt. was reciving epidurals and nerve blocks, but since from 2010 to 2016 has not seen much change in her symptoms recently. She has had multiple MRIs of cervical, thoracic and lumbar region in 2018. She does not work and her brother lives with her, helping at home. She reports walking back to the treatment room from [facility] is the most that she has walked in years. Pt. uses a cane and FWW/rollator for ambulation and is in the process of buying a motorized wheel chair. She is hopeful to reduce pain and increase her strength in order to get back more independence and to complete recreational activites without limitations. - Pain Cervical spine Pain Intensity (Out of 10): 3 Pain Intensity Range: 6 Comment: L sided mostly Lumbar spine Pain Intensity (Out of 10): 4 Pain Intensity Range: 2, 8 BLEs Pain Intensity (Out of 10): 4 Pain Intensity Range: 2, 8 - Objective POSTURE: Pt. has general flexed posture throughout spine. Pt. tends to hold her head in slight flexion and R SB. Pt. is able to improve posture, but falls back into this positioning. Pt. has a difficulty time improving lumbar and thoracic posture without use of AD. PALAPTION: Pt. has tenderness along L cervical erector spinea and L UT regions. Pt. has pain along B lumbar erector spine and diffuse muscle tenderness along HS and quads of BLEs. NEURO: Pt. has normal sensation of BLEs. She has good reflexes of B achilles and patellar tendons. Pt. is able rise on toes, but has difficulty with balance with standing on heels. Negative babinski noted as well. ROM: CERVICAL SPINE: flexion mod loss increase NW L side, SB mod loss bilat increase NW L side, Extension mod/max loss increase NW L sided, rotation R min loss increase NW L side. Mod/max loss rotation L increase NW L side. LUMBAR SPINE: flexon- mod loss increase NW, extension mod/max loss increase NW, SB mod loss increase NW, rotation mod loss icnrease NW bilat. HS length slightly limited bilaterally. MMT: Pt. has 4-/5 strength of BLEs throughout, except knee ext 4/5 bilat and 3+/5 bilateral hip abd. Core strength poor. GAIT: Pt. ambulates with SPC with decreased tempo, increase R lateral lean and flexed posture. Pt. requires frequent standing rest periods secondary to fatigue/pain. She reports that her legs will give out on her, did not happen today, but she reports using motorized carts at stores and will not go in a store that does not have one. STAIRS: Pt. able to complete 4 steps with BHR and SBA. - Goals Goal 1:: LTG: Pt. to be I with HEP. Goal Time Frame: 4-6 Weeks Goal 2:: STG: Pt. to sleep throughout the night without increase in symptoms. Goal Time Frame: 2-4 Weeks Goal 3:: LTG: Pt. to have increased core and BLE strength by 1/2 grade throughout. Goal Time Frame: 4-6 Weeks Goal 4:: LTG: Pt. to be able to walk 500+ ft. with single point cane with 0-2/10 pain in BLEs and lumbar spine. Goal Time Frame: 4-6 Weeks Goal 5:: LTG: Pt. to have increased cervical spine ROM by 25% in all directions without increase in symptoms. Goal Time Frame: 4-6 Weeks Goal 6:: LTG: Pt. to demonstrate proper lumbar/thoracic/cervical spine posture throughout therapy session. Goal Time Frame: 4-6 Weeks - Rehabilitation Potential Physical Therapy Diagnosis: Pt. has signs and symptoms consistent with low back pain, radiculopathy, cauda equina syndrome, cervcalgia. Pt. has marked weakness in BLEs and core musculature. Pt. has increased pain in BLE and lumbar spine with all functional mobility and standing for any length of time. Pt. has limited cervical spine ROM as well, but appears to be more associated with L sided muscle tension. Pt. is a complex case with multiple pathologies steming from cervicalgia to lumbar pathologies, and overall weakness and may require a longer time frame to assist with strenghtening and general mobility. Rehabilitation Potential: Fair - Anticipated Interventions Patient/Client Instruction: Educate patient on: Condition, Plan of Care, Risk Factors, Benefits of Fitness Program For the Purpose of:: To facilitate caregiver knowledge, To improve self manage ment, To prevent re-injury, To improve ability to perform tasks related to life management, To improve tolerance to ADL's Therapeutic Exercise to Include: Strength training, Power training, Balance training, Body mechanics, Postural training, Flexibilty training, Gait and locomotor training, Passive ROM, Active ROM, Dynamic Lumbar Stabilization, Hammad Exercises For the Purpose of:: To decrease pain, To decrease swelling/inflammation, To increase ROM, To improve nutrient delivery to tissue, To increase oxygenation perfusion, To improve muscle performance and motor function, To improve ability to perform ADL's Manual Therapy Techniques to Include: Trigger point massage, Mobilization, Soft tissue mobilization For the Purpose of:: To decrease pain, To decrease swelling/inflammation, To increase ROM, To improve nutrient delivery to tissue, To increase oxygenation perfusion Thank you for the opportunity to evaluate your patient. For Medicare and Medicare HMO plans, please review the plan of care and approve it. It will need to be FAXED BACK to us at [phone] for Medicare purposes. For Medicare only, by signing this I certify the plan of care. Please let me know if there are questions or concerns regarding this plan of care. Physician Signature:__ Date:
== END 2020-06-21 19:00 | disposition home or self-care (01) ==
LOC: PT 13:18
PROVIDERS: PCP Family Medicine; Referring Provider Psychiatry & Neurology Neurology; Visit Provider Psychiatry & Neurology Neurology
DX: M54.5 Low back pain (principal); M54.16 Radiculopathy, lumbar region; G83.4 Cauda equina syndrome; M54.2 Cervicalgia
CPT/HCPCS: 97162

== ENCOUNTER → 2020-11-28 13:13 | Outpatient (CLI) | payer MEDICARE, SELFPAY ==
[2020-09-08 14:07] VITALS: BMI 35.4
[2020-10-26 14:33] VITALS: BMI 35.4
--- NOTE | 2020-11-28 13:14 | CDU_ITS ---
Reason For Study: Carotid disease Rt. Velocities/BP Lt. Velocities/BP Prox CCA 56.5/9.5 cm/sec. Prox CCA 99.2/23.4 cm/sec. Mid CCA 64.3/13.4 cm/sec. Mid CCA 78.4/19 cm/sec. Dist CCA 53.9/16 cm/sec. Dist CCA 66.3/16.8 cm/sec. Prox ICA 78.6/23.9 cm/sec. Prox ICA 95.5/27.9 cm/sec. Mid ICA 72.1/22.6 cm/sec. Mid ICA 93.7/29.8 cm/sec. Dist ICA 102.8/33.4 cm/sec. Dist ICA 64.5/20.6 cm/sec. Rt. ICA/CCA = 1.82. Lt. ICA/CCA = 1.22. Prox ECA 104.7/16 cm/sec. Prox ECA 110.1/9.7 cm/sec. Rt. Vert. 38.8/13.5 cm/sec. Lt. Vert. 44.3/11.3 cm/sec. Right Extracranial There is homogeneous, smooth atherosclerotic plaque noted in the right common carotid artery. There is heterogeneous, irregular atherosclerotic plaque noted in the right internal carotid artery. There is intimal thickening but no significant atherosclerotic plaque noted in the right external carotid artery. Antegrade flow is noted in the right vertebral artery. Left Extracranial There is homogeneous, smooth atherosclerotic plaque noted in the left common carotid artery. There is heterogeneous, irregular atherosclerotic plaque noted in the left internal carotid artery. There is homogeneous, smooth atherosclerotic plaque noted in the left external carotid artery. Antegrade flow is noted in the left vertebral artery. Procedure Carotid Duplex [id number]. This is a Carotid Duplex examination using B-mode, color flow and specral Doppler. The study was technically difficult. Exam performed in department. VL/Carotid Duplex Ultrasound Interpretation Summary Mild irregular plaque at the proximal right internal carotid artery with less t carlos 50% stenosis Less than 50% stenosis right external carotid artery Irregular calcific plaque within the proximal left internal carotid artery with less than 50% stenosis Less than 50% stenosis left external carotid artery Patent and antegrade vertebral arteries bilaterally The examination was noted to be technically difficult Ordering Physician: Meliza Mart Referring Physician: Jimmie Aguirre Performed By: Chasity Saldaña RVT
== END ==
PROVIDERS: PCP Family Medicine; Referring Provider Physician Assistant Medical; Visit Provider Physician Assistant Medical
DX: H53.121 Transient visual loss, right eye (principal); H54.61 Unqualified visual loss, right eye, normal vision left eye
CPT/HCPCS: 93880

== ENCOUNTER → 2021-04-05 14:13 | Outpatient (CLI) | payer MEDICARE, SELFPAY ==
[2021-04-05 15:49] LABS: T4 Free Direct 1.58 ng/dL (0.76-1.46); Thyroid Stim Hormone (TSH) 1.49 uIU/mL (0.358-3.74)
== END ==
PROVIDERS: PCP Family Medicine; Referring Provider Internal Medicine Endocrinology, Diabetes & Metabolism; Visit Provider Internal Medicine Endocrinology, Diabetes & Metabolism
DX: E78.5 Hyperlipidemia, unspecified (principal)
CPT/HCPCS: 36415; 84439; 84443

== ENCOUNTER 2021-06-01 12:00 | Outpatient (RCR) | payer MEDICARE, SELFPAY | END 2021-06-01 19:00 | disposition home or self-care (01) | LOC: PT 12:00 | PROVIDERS: PCP Family Medicine; Referring Provider Psychiatry & Neurology Neurology; Visit Provider Psychiatry & Neurology Neurology | DX: R69 Illness, unspecified (principal) ==

== ENCOUNTER 2021-07-30 16:52 | Outpatient (CLI) | payer MEDICARE, SELFPAY ==
--- NOTE | 2021-07-30 16:55 | RAD_ITS ---
STUDY: X-RAY CHEST REASON FOR EXAM: Female, 65 years old. Cough. Status post COVID. TECHNIQUE: PA and lateral views of the chest. COMPARISON: 03/21/2019. FINDINGS: The lungs are clear and expanded. There is no demonstrated pleural abnormality. Normal size heart. Normal mediastinum and kayla. Normal visualized pulmonary arteries. There is atherosclerotic calcification of the aortic arch with tortuosity. Normal visualized thoracic spine. There is degenerative osteoarthritis of the bilateral shoulders. There is no demonstrated abnormality of the visualized soft tissue structures of the upper abdomen. RAD/Chest PA and Lateral IMPRESSION: Degenerative changes, as described above. No demonstrated acute cardiopulmonary process. There is no major interval change. Electronically Signed: Lei Saavedra DO at 23:52 EST ,
== END 2021-07-30 23:59 | disposition home or self-care (01) ==
LOC: MTRAD 16:53
PROVIDERS: PCP Family Medicine; Referring Provider Family Medicine; Visit Provider Family Medicine
DX: R05.9 Cough, unspecified (principal)
CPT/HCPCS: 71046

== ENCOUNTER 2021-09-05 10:50 | Outpatient (RCR) | payer MEDICARE, SELFPAY ==
--- NOTE | 2022-02-27 09:05 | HP.PTEVAL_ITS ---
Patient's Visit Information RADHA VALLE is a 66 year old F referred to Physical Therapy by Dr. Jimmie Aguirre DO with a diagnosis of SPINAL STENOSIS LUMBAR,CERVICAL DISC DEGENERSTION. Date of Evaluation: 09/05/21 Physical Therapist: Don Thrasher, PT, Cert MDT, OCS - Visit Plan Frequency: 2x /Week Duration: 6 Weeks Plan: PT INTERVETIONS GRADED POSTURAL EX'S,DLS ABD/BACK ,CERVICAL/LUMBAR ROM ,BUE/LE STRENGTHNEING ,MODALITIES PRN AND HEP, - Subjective This 65 y/o female presents to physical therapy lumbar and back pain. Patient has medical complexity issues with patient having lumbar pain by years with lumbar compression fracture 2001 thus subsequently has had several compression fracture L4-5 X2 2017. 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 This called multiple problems then developed nicholas's thyroid ,CVA's x2,graces disease, DM, fibromyalgia, bipolar ,PTSD, depression ,decubiti, ulcer, IBS,GERD ,adult attention disorder . Patient has had neck pain 2016 [address] Se[address] had MRI lumbar stenosis/HNP ,cervical stenosis. Patient was to have lumbar fusion 2018 but had other medical complexity issues unable to have surgery. Lumbar pain symmetrical lumbar with radicular symptoms in thighs . Aggravating factors walking, standing, lifting and bending. Alleviating factors sitting rest and MEDS. MEDS bactofilin, Percocet, Lyrica. C/O paresthesia/tingling hands feet /arms /legs. Coughing/sneezing -. Bowel/bladder - ,although has incomitance. Patient pain affects sleeping. Cervical pain neck pain with radicular symptoms in arms. Aggravating factors lifting ,flexion with reading ,computer, driving. Alleviating factors rest and MEDS . Alleviating factors MEDS rest. Patient c/o SPARROW ,dizziness/nausea. Patient goal is to get stronger. Patient symptoms affects QOL and function,. SOCAIL: . VOCATION: disability - Pain Bilateral Neck Pain Intensity (Out of 10): 6 Pain Intensity Range: 10 Bilateral Shoulder Pain Intensity (Out of 10): 6 Bilateral Back Pain Intensity (Out of 10): 8 Pain Intensity Range: 10 Bilateral Lower Extremity Pain Intensity (Out of 10): 7 Pain Intensity Range: 10 - Objective POSTURE: rounded shoulder head forward ,mild flexed posture ,hips/knees. GAIT: ambulate with cane antalgic gait slow saumya 2 point gait. BALANCE: good -. PALPATION: tender UT /levator, lumbar paraspinal's. NEURO: c/o par esthesia/tingling LE /UE ,C5-6-7 2/3,L3-4,L4-5,L5-S1 2/3. CERVICAL ROM: flexion mod loss, rotation mod loss, lateral flexion mod loss right ,mod/sever loss left pain, extension mod/severe loss. MMT: grossly 4-/5. LUMBAR ROM: flexion mod loss, extension severe loss ,side glides mod. FLEXABLITY: hamstrings mod loss. MMT: quads/hamstrings hip 3+/5 ,ankle 4-/5 - Special Tests C/S Radiculapathy - Left Upper limb tension test: Negative C/S Radiculapathy - Left Spurlings: Positive C/S Radiculapathy - Right Spurlings: Positive C/S Radiculapathy - Left Cervical distraction: Negative C/S Radiculapathy - Right Cervical distraction: Negative C/S Radiculapathy - Left Relief test: Negative Sharp Luis Angel: Negative Vertebral Artery Test: Negative Alar Ligament Test: Negative L/S Slump test left side: Positive L/S Slump test right side: Positive L/S Left Straight Leg Raise: Negative - Balance/Special Test Scores Oswestry Low Back Score: 39 - Goals Goal 1:: Patient to be I with HEP Goal Time Frame: 4-6 Weeks Goal 2:: Patient to improve strength BLE 4-/5 to improve gait and function Goal Time Frame: 4-6 Weeks Goal 3:: Patient to improve cervical/LUMBAR ROM for function of recovery to perform ADLS drive and put on shoes Goal Time Frame: 4-6 Weeks Goal 4:: Patient to demonstrate 50% improve with function with less pain Goal Time Frame: 4-6 Weeks Goal 5:: Patient to improve back owsetry by 5 points to improve QOL. Goal Time Frame: 4-6 Weeks Goal 6:: Patient able to improve gait to improve function 75 % of the time Goal Time Frame: 4-6 Weeks - Rehabilitation Potential Physical Therapy Diagnosis: This patient has multiple comorbities to influence condition along with pain neck and back with radicular symptoms ,pain with positioning and motion testing ,weakness affecting gait and function /ADLS thus will benefit from skilled PT Rehabilitation Potential: Good - Anticipated Interventions Patient/Client Instruction: Educate patient on: Condition, Plan of Care For the Purpose of:: To decrease pain, To decrease swelling/inflammation, To increase ROM, To improve muscle performance and motor function, To improve performance and independence with ADL's, To improve ability of physical actions for home/community/work/leisure, To improve gait and locomotor functions, To improve health of tissue, To decrease soft tissue restriction, To increase flexibility/ROM, To improve endurance, To improve balance, To improve tolerance to ADL's Therapeutic Exercise to Include: Strength training, Endurance training, Balance training, Body mechanics, Postural training, Flexibilty training, Active ROM, Dynamic Lumbar Stabilization Comment: BUE/LE For the Purpose of:: To decrease pain, To increase ROM, To improve muscle performance and motor function, To improve ability to perform ADL's, To increase tolerance to activity/condition/position, To improve ability of physical actions for home/community/work/leisure, To improve gait and locomotor functions, To improve health of tissue, To decrease soft tissue restriction, To increase flexibility/ROM, To improve endurance, To improve balance, To improve safety with gait, To prevent re-injury, To improve tolerance to ADL's TENS: Yes IF ES: Yes Cryotherapy (ice pack, ice massage): Yes Thermo therapy (hot pack): Yes Ultrasound (thermal/non thermal): Yes For the Purpose of:: To decrease pain, To increase ROM, To improve nutrient delivery to tissue, To increase oxygenation perfusion, To improve health of tissue, To decrease soft tissue restriction Thank you for the opportunity to evaluate your patient. For Medicare and Medicare HMO plans, please review the plan of care and approve it. It will need to be FAXED BACK to us at [phone] for Medicare purposes. For Medicare only, by signing this I certify the plan of care. Please let me know if there are questions or concerns regarding this plan of care. Physician Signature: Date:
--- NOTE | 2022-02-27 09:05 | HP.PT.NRP ---
RADHA VALLE was seen in my office for initial evaluation on 09/05/21. The following Plan of Care was established for this patient: Initial Frequency: 2x /Week Initial Duration: 6 Weeks Patient/Client Instruction: Educate patient on: Condition, Plan of Care For the Purpose of:: To decrease pain, To decrease swelling/inflammation, To increase ROM, To improve muscle performance and motor function, To improve performance and independence with ADL's, To improve ability of physical actions for home/community/work/leisure, To improve gait and locomotor functions, To improve health of tissue, To decrease soft tissue restriction, To increase flexibility/ROM, To improve endurance, To improve balance, To improve tolerance to ADL's Therapeutic Exercise to Include: Strength training, Endurance training, Balance training, Body mechanics, Postural training, Flexibilty training, Active ROM, Dynamic Lumbar Stabilization For the Purpose of:: To decrease pain, To increase ROM, To improve muscle performance and motor function, To improve ability to perform ADL's, To increase tolerance to activity/condition/position, To improve ability of physical actions for home/community/work/leisure, To improve gait and locomotor functions, To improve health of tissue, To decrease soft tissue restriction, To increase flexibility/ROM, To improve endurance, To improve balance, To improve safety with gait, To prevent re-injury, To improve tolerance to ADL's TENS: Yes IF ES: Yes Cryotherapy (ice pack, ice massage): Yes Thermo therapy (hot pack): Yes Ultrasound (thermal/non thermal): Yes For the Purpose of:: To decrease pain, To increase ROM, To improve nutrient delivery to tissue, To increase oxygenation perfusion, To improve health of tissue, To decrease soft tissue restriction This patient was last seen in our office . Pertinent comments regarding their Physical therapy will appear below: Patient seen for PT evaluation for HEP. At this point I will be discontinuing this patient from physical therapy. I would be happy to see this patient again in the future if found appropriate by the physician. Thank you! Don Thrasher, PT, Cert MDT, OCS Balance/Gait/Functional tests - Balance/Special Test Scores Oswestry Low Back Score: 39
== END 2021-09-05 19:00 | disposition home or self-care (01) ==
LOC: PT 10:50
PROVIDERS: PCP Family Medicine; Referring Provider Family Medicine; Visit Provider Family Medicine
DX: M48.061 Spinal stenosis, lumbar region without neurogenic claudication (principal); M50.30 Other cervical disc degeneration, unspecified cervical region
CPT/HCPCS: 97110; 97162

== ENCOUNTER → 2022-03-27 | Outpatient (CLI) | payer MEDICARE, SELFPAY ==
--- NOTE | 2022-03-27 02:58 | RAD_ITS ---
STUDY: X-RAY - CERVICAL SPINE REASON FOR EXAM: Female, 66 years old. SPINAL STENOSIS TECHNIQUE: 10 view(s) of the cervical spine were obtained. COMPARISON: None FINDINGS: Normal anterior atlantoaxial articulation. Normal odontoid process. There is straightening of the normal cervical lordosis. Normal vertebral bodies and endplates. There is multi-level degenerative disc disease with multilevel disc space narrowing. There is multi-level osseous foraminal stenosis. The soft tissue structures are unremarkable. RAD/Cerv Spine 4 or 5 Views IMPRESSION: Multilevel degenerative changes, no acute findings Electronically Signed: Brodie Roberts MD at 9:42 EDT ,
== END | disposition home or self-care (01) ==
LOC: RAD 02:50
PROVIDERS: PCP Family Medicine; Visit Provider Family Medicine
DX: M48.02 Spinal stenosis, cervical region (principal); M54.12 Radiculopathy, cervical region
CPT/HCPCS: 72050

== ENCOUNTER → 2022-05-28 | Outpatient (CLI) | payer MEDICARE, SELFPAY ==
[2022-05-28 16:53] LABS: Absolute Lymphocyte Count 3.61 X10^3/uL (0.83-4.51); Absolute Neutrophil Count 7.4 X10^3/uL (2.0-7.7); Basophil% 0.8 % (0-1); Eosinophil# 0.28 X10^3/uL; Eosinophils% 2.3 % (0-5); Hematocrit 45.1 % (37-47); Hemoglobin 14.5 g/dL (12.0-15.0); Lymphocyte # 3.61 X10^3/ul (0.83-4.51); Lymphocyte % 29.7 % (19-41); Mean Corp Hgb Conc 32.2 g/dL (32-36); Mean Corpuscular Hgb 27.9 pg (27.0-32.0); Mean Corpuscular Volume 86.7 fL (81-99); Mean Platelet Vol. 10.4 fl (6.2-12.0); Monocyte# 0.74 X10^3/uL; Monocyte% 6.1 % (0-10); NRBC Flagged by Analyzer 0 % (0-5); Neutrophil # 7.35 X10^3/uL (2.7-7.7); Neutrophil % 60.6 % (47-70); Platelet Count 281 K/mm3 (150-450); RBC Distribution Width CV 13.9 % (11.6-14.6); RBC Distribution Width SD 44.1 fl (35.1-43.9); White Blood Count 12.1 K/mm3 (4.4-11.0)
[2022-05-28 17:21] LABS: ALB/GLOB Ratio 1.1 RATIO (0.9-2.4); AST(SGOT) 11 U/L (15-37); Alanine Aminotransfer ALT/SGPT 42 U/L (13-56); Albumin, Serum 3.8 g/dL (3.2-5.0); Alkaline Phosphatase 101 U/L (45-117); Anion Gap 5 (5-15); BUN 13 mg/dL (7-18); BUN/Creat Ratio 16.8 RATIO (10-20); CPK Total, Creatine Kinase 76 U/L (26-192); Calcium,Total 9.8 mg/dL (8.5-10.1); Chloride 104 mmol/L (98-107); Creatinine, Serum 0.78 mg/dL (0.55-1.02); EST Glomerular Filtration Rate 80 mL/min (>60); Est Glom Filt Rate - Afr Amer 96 mL/min (>60); Globulin 3.6 g/dL (2.2-4.2); Glucose 129 mg/dL (74-106); LDH 159 U/L (84-246); Potassium 3.7 mmol/L (3.5-5.1); Protein, Total 7.4 g/dL (6.4-8.2); Sodium Level 139 mmol/L (136-145); T4 Free Direct 1.28 ng/dL (0.76-1.46); Thyroid Stim Hormone (TSH) 4.53 uIU/mL (0.358-3.74)
[2022-05-28 17:38] LABS: Erythrocyte Sedimentation Rate 27 mm/hr (0-30)
[2022-06-06 19:37] LABS: Aldolase 5.5 U/L (3.3-10.3); HLA B27 Negative (.)
== END | disposition home or self-care (01) ==
LOC: LAB 16:38
PROVIDERS: PCP Family Medicine; Visit Provider Family Medicine
DX: M25.50 Pain in unspecified joint (principal); M46.90 Unspecified inflammatory spondylopathy, site unspecified; E03.8 Other specified hypothyroidism; E06.3 Autoimmune thyroiditis
CPT/HCPCS: 36415; 80053; 81374; 82085; 82550; 83615; 84439; 84443; 85025; 85652

== ENCOUNTER → 2022-09-06 | Outpatient (CLI) | payer MEDICARE, SELFPAY ==
--- NOTE | 2022-09-06 15:35 | RAD_ITS ---
EXAM: XR LUMBOSACRAL SPINE, 4 OR 5 VIEWS CLINICAL INDICATION: LUMBAR STENOSIS -- order states AP/LAT/FLEX/EXT TECHNIQUE: Frontal, lateral and bilateral oblique views of the lumbar spine. This report was created using [employer] report [employer] technology. COMPARISON: 03/21/2019 FINDINGS: VERTEBRAE: There is a superior endplate compression deformity of L1 which is stable from the reference exam. No new fractures are identified. The bony neural foraminal narrowing at L2 weeks 3. There is no change in alignment with flexion or extension views. No spondylolisthesis. Preservation of the normal lumbar lordosis. No significant facet arthropathy. DISC SPACES: There is severe disc space narrowing at L4-5 and L5-S1 with lesser degree of narrowing at L3-4. GASTROINTESTINAL TRACT: Unremarkable as visualized. Included bowel gas pattern is non-obstructive. RAD/L/S Spine Min 4 Views IMPRESSION: Stable superior endplate compression deformity of L1. No acute fractures are identified. There are degenerative changes with disc space narrowing and bony neural foraminal narrowing. Electronically Signed: Van Diaz MD at 23:06 EDT ,
== END | disposition home or self-care (01) ==
PROVIDERS: PCP Family Medicine
DX: M48.062 Spinal stenosis, lumbar region with neurogenic claudication (principal)
CPT/HCPCS: 72110

== ENCOUNTER → 2022-12-17 | Outpatient (CLI) | payer MEDICARE, SELFPAY ==
--- NOTE | 2022-12-17 11:45 | CT_ITS ---
STUDY: CT BRAIN WITHOUT CONTRAST REASON FOR EXAM: Female, 67 years old. KNOWN CEREBROVASCULAR DISEASE W/ RECURRENT FALLS RADIATION DOSAGE (If Supplied By Facility): CTDIvol = ( 44.99 ) mGy, DLP = ( 846.73 ) mGycm TECHNIQUE: Transaxial CT imaging of the brain was performed without administration of intravenous contrast material. Individualized dose optimization techniques were used for this CT. COMPARISON: No relevant priors. FINDINGS: Normal soft tissue structures. Normal calvarium. There is mild cerebral atrophy with widening of the extra-axial spaces and ventricular dilatation. Focal area of encephalomalacia in the posterior medial aspect of the left occipital lobe suggestive of old infarction. Findings suggestive of old lacunar infarct in the anterior cortex of the right temporal lobe. Normal brainstem. Normal cerebellum. There is no intracranial hemorrhage. There are no findings of an acute ischemic infarction. Partial opacification of the ethmoid sinuses bilaterally as well as mucosal thickening of the maxillary sinuses and left sphenoid sinus. CT/Brain/Head without Contrast IMPRESSION: Chronic involutional changes of the brain. Findings suggestive of old infarction along the posterior medial aspect of the left occipital lobe. Electronically Signed: Jhonny Torrez MD at 14:47 EDT ,
[2022-12-17 12:50] LABS: Hemoglobin A1c 7.1 % (3.8-5.6)
[2022-12-17 13:00] LABS: Microalbumin,Random Urine 9.7 mg/L (NO RANGE EST.); Microalbumin:Creatinine Ratio 8.9 mg/g CRE (<30 mg/g CRE)
[2022-12-17 13:22] LABS: Cholesterol 222 mg/dL (200); High Density Lipoprotein 40 mg/dL; T4 Free Direct 1.32 ng/dL (0.76-1.46); Thyroid Stim Hormone (TSH) 0.44 uIU/mL (0.358-3.74); Triglycerides 146 mg/dL; Very Low Density Lipoprotein 29 mg/dL (5-40)
== END | disposition home or self-care (01) ==
PROVIDERS: PCP Family Medicine; Referring Provider Family Medicine; Visit Provider Family Medicine
DX: I67.9 Cerebrovascular disease, unspecified (principal); E11.9 Type 2 diabetes mellitus without complications; R29.6 Repeated falls; R32 Unspecified urinary incontinence; R41.0 Disorientation, unspecified; E03.8 Other specified hypothyroidism; E06.3 Autoimmune thyroiditis; E78.5 Hyperlipidemia, unspecified
CPT/HCPCS: 36415; 70450; 80061; 82043; 82570; 83036; 84439; 84443